=== PATIENT | male | born 1950 | race Caucasian/White ===

== ENCOUNTER → 2017-03-26 | Outpatient (CLI) | payer OTHER, MEDICARE ==
[~2017-03-26] MED LIST: ASPI81TA28 PO; ATOR10TA82 PO; HYDR-5688 PO; HYDR25TA4 PO; MELO7.5T5 PO; MULT-506 PO; NAPR1TAB9 PO; NRV/10 PO; XRL10 PO; ZLF/50 PO
[2017-03-26 13:42] LABS: ESTIMATED AVERAGE GLUCOSE 137 mg/dl; HA1C FLAG Normal (Normal)
[2017-03-26 13:54] LABS: BLOOD UREA NITROGEN 20 mg/dl (7-18); BUN/CREATININE RATIO 18.3 (10-20); CARBON DIOXIDE 30 mmol/L (21-32); CHLORIDE 101 mmol/L (98-107); CHOLESTEROL 128 mg/dl (0-200); GLUCOSE 111 mg/dl (70-99); POTASSIUM 3.3 mmol/L (3.5-5.1); SODIUM 140 mmol/L (136-145); TRIGLYCERIDES 212 mg/dl (0-150); VERY LOW DENSITY LIPOPROT CALC 42 mg/dl
[2017-03-26 14:00] LABS: CALCIUM 9.5 mg/dl (8.5-10.1)
[2017-03-26 14:01] LABS: CHOLESTEROL/HDL RATIO 2.1; HDL CHOLESTEROL 62 mg/dl; LDL CHOLESTEROL CALCULATED 24 mg/dl
--- NOTE | 2017-04-02 08:40 | CODING QUERY MEDICAL NECESSITY ---
CQSUPPORTING DIAGNOSIS NEEDED A supporting diagnosis is required for the test/procedure performed on this patient in order for us to be reimbursed by the patient's insurance. Please provide a supporting diagnosis for the following test/procedure listed below next to the test name along with your signature. *If there is no additional diagnosis for this patient that would support the following test/procedure please document that below next to the test/procedure. Test(s)/Procedure(s) that require a supporting diagnosis: DOS 03/26/17 PROSTATE SPECIFIC TEST (PSA) Provider Signature: Date: Thank you Danitza Churchill Health Information Management Once completed, please kindly fax back to [phone] For questions please call [phone]
== END | disposition home or self-care (01) ==
LOC: C.LABBC 11:33
PROVIDERS: ATTEND Internal Medicine Geriatric Medicine
DX: Z00.00 Encounter for general adult medical examination without abnormal findings (principal); Z12.5 Encounter for screening for malignant neoplasm of prostate; I10 Essential (primary) hypertension; E78.5 Hyperlipidemia, unspecified; R73.9 Hyperglycemia, unspecified

== ENCOUNTER 2017-04-19 05:58 | Inpatient (IN) | payer OTHER, MEDICARE ==
[2017-04-02 08:23] VITALS: BMI 40.0
--- NOTE | 2017-04-02 08:57 | PAT Medication Instructions ---
Service Date April 02, 2017. Current Home Medication List Amlodipine Besylate (Amlodipine Besylate), 10 MG PO QAM Aspirin (Aspirin Ec), 81 MG PO QAM Atorvastatin (Lipitor), 10 MG PO QAM Hydrochlorothiazide (Hctz), 25 MG PO QAM Meloxicam (Mobic), 15 MG PO QAM Multivitamin (Multivitamin), 1 TAB PO QAM Naproxen (Aleve), 440 MG PO BID Sertraline HCl (Sertraline HCl), 50 MG PO DAILY PRN for Pain Medication Instructions For Your Scheduled Surgery - Hold the following medications 5-7 days prior to surgery per surgeon instructions Naproxen (Aleve), 440 MG PO BID - Hold the following medications the morning of surgery: Multivitamin (Multivitamin), 1 TAB PO QAM Hydrochlorothiazide (Hctz), 25 MG PO QAM Meloxicam (Mobic), 15 MG PO QAM (not told to stop by surgeon) - Take the following medications the morning of surgery with a sip of water: Sertraline HCl (Sertraline HCl), 50 MG PO DAILY PRN for Pain Amlodipine Besylate (Amlodipine Besylate), 10 MG PO QAM Aspirin (Aspirin Ec), 81 MG PO QAM Atorvastatin (Lipitor), 10 MG PO QAM If you have any questions please call us at [phone] or [phone] ( [place]) or [phone]
[2017-04-02 10:10] LABS: BASO % 0.3 %; BASO ABS # 0.03 K/uL (0-0.2); COMPLETE YES; EOS % 1.6 %; HEMATOCRIT 48.5 % (42-52); IG% 0.5 %; LYMPH % 21.1 %; LYMPH ABS # 2.11 K/uL (1.2-3.4); MEAN CELL VOLUME 85.7 fL (80-100); MEAN CORPUSCULAR HEMOGLOBIN 28.1 pg (25-34); MEAN CORPUSCULAR HGB CONC 32.8 g/dl (32-36); MEAN PLATELET VOLUME 9.3 fL (7.4-10.4); NEUT % 69.5 %; PLATELET COUNT 183 K/uL (130-400); RED BLOOD COUNT 5.66 M/uL (4.7-6.1); WHITE BLOOD COUNT 10.02 K/uL (4.8-10.8)
[2017-04-02 10:10] LABS: URINE APPEARANCE CLEAR (CLEAR); URINE BILIRUBIN NEG (NEG); URINE COLOR YELLOW; URINE NITRITE NEG (NEG); URINE SPECIFIC GRAVITY 1.017 (1.000-1.030); UROBILINOGEN NEG (NEG); ZZUR CULT IF INDIC CLEAN CATCH NO
[2017-04-02 10:12] LABS: MANUAL MICROSCOPIC REQUIRED? NO; REVIEW REQ? NO
--- NOTE | 2017-04-02 10:13 | DIAGNOSTIC IMAGING REPORT ---
CHEST PREADMISSION(PA/LAT) CLINICAL HISTORY: Preoperative evaluation. COMPARISON STUDY: Chest radiograph March 12, 2010. FINDINGS: Lung volumes are normal. There is no pneumothorax or pleural effusion. There is no evidence of pulmonary edema. Cardiac size is normal. No consolidation is identified. The appearance of the chest is unchanged. IMPRESSION: No acute cardiopulmonary findings. Electronically signed by: Dirk Croft M.D. 04/02/2017 10:11 AM Dictated Date/Time: 04/02/2017 10:10 AM
[2017-04-02 10:21] LABS: PARTIAL THROMBOPLASTIN RATIO 1.2; PROTHROMBIN TIME (PATIENT) 10.2 SECONDS (9.0-12.0)
[2017-04-02 10:55] LABS: CALCIUM 9.2 mg/dl (8.5-10.1); CREATININE 0.95 mg/dl (0.60-1.40)
--- NOTE | 2017-04-18 14:04 | HISTORY & PHYSICAL EXAMINATION ---
DATE OF ADMISSION: 04/19/2017 CHIEF COMPLAINT: Right knee pain. HISTORY OF PRESENT ILLNESS: The patient is a 67-year-old gentleman with known osteoarthritis about his right knee. He has had previous knee corticosteroid injection with short term relief. He continues to have pain and disability with activities of daily living. He takes Meloxicam daily. He uses Biofreeze gel intermittently as needed. He continues to have ongoing pain and now desires to proceed with right total knee arthroplasty. PAST MEDICAL HISTORY: Hyperlipidemia, gastroesophageal reflux disease, history of DVT status post previous lower leg surgery, hypertension. PAST SURGICAL HISTORY: Lower leg surgery, foot surgery, elbow surgery. MEDICATIONS: Sertraline HCL 50 mg 2 tablets daily, atorvastatin calcium 10 mg daily, hydrochlorothiazide 25 mg daily, aspirin 81 mg daily, amlodipine besylate 10 mg daily, Meloxicam 15 mg daily, multivitamin daily. ALLERGIES: INCLUDE BENICAR AND LISINOPRIL. SOCIAL HISTORY AND REVIEW OF SYSTEMS: Noncontributory. PHYSICAL EXAMINATION: GENERAL: Well-nourished, well-developed male who appears stated age. HEAD, EYES, EARS, NOSE, AND THROAT: Normocephalic, atraumatic, extraocular movements intact, oropharynx pink and moist. NECK: Supple without adenopathy. LUNGS: Clear to auscultation bilaterally. HEART: Regular rate and rhythm. ABDOMEN: Soft, nontender, nondistended. EXTREMITIES: The upper extremities are within normal limits. The right knee is in neutral alignment. He complains primarily of medial compartment pain. He has mild narrowing of the joint space. He has moderate degenerative change with osteophytes about the patellofemoral joint. ASSESSMENT: Right knee degenerative joint disease. PLAN: Risks versus benefits were discussed. Consent was obtained. The patient's primary care physician is Dr. Denzel Ruiz. Will proceed with right total knee arthroplasty upon preop workup and medical clearance.
[~2017-04-19] VITALS: Ht 180.3 cm; Wt 131.1 kg
[2017-04-19] VITALS (7 sets, daily range): BP systolic 111–155; BP diastolic 73–95; PULSE 60–79; TEMP 36.5–37; O2SAT 93–96; Ht 180.3 cm; Wt 131.1 kg
[~2017-04-19 05:58] MED LIST changes: -HYDR-5688 PO; -XRL10 PO
[2017-04-19] MEDS ORDERED: DEXAMETHASONE 4 MG TAB PO SCH (06:00)
[2017-04-19] MEDS ORDERED: FAMOTIDINE 20 MG TAB PO SCH (06:00)
[2017-04-19] MEDS ORDERED: CeleBREX 200 MG CAP PO SCH (06:00)
[2017-04-19] MEDS ORDERED: GABAPENTIN 300 MG CAP PO SCH (06:00)
[2017-04-19] MEDS ORDERED: LACTATED RINGER'S 1000ML 500 ML IV ONE (06:00)
[2017-04-19] MEDS ORDERED: ROPIVACAINE 5MG/ML 30 ML 150 MG, BUPIVACAINE/EPINEPHR 0.5% MPF 30 ML, KETOROLAC TROMETH... INFIL SCH ×7 (06:00)
[2017-04-19] MEDS ORDERED: LACTATED RINGER'S 1000ML IV SCH (06:00)
[2017-04-19] MEDS ORDERED: METOCLOPRAMIDE HCL 10 MG TAB PO SCH (06:00)
[2017-04-19] MEDS ORDERED: CEFAZOLIN 3000 MG/65 ML D5W 65 ML IV SCH (06:00)
[2017-04-19] MEDS ORDERED: ACETAMINOPHEN 500 MG TAB PO SCH (06:00)
[2017-04-19] MEDS ORDERED: LACTATED RINGER'S 1000ML 1,000 ML IV SCH (06:00)
[2017-04-19] MEDS ORDERED: EpHEDrine SULFATE INJ 50 MG/ML AMP IV PRN (06:45)
[2017-04-19] MEDS ORDERED: ATROPINE SULFATE 0.1 MG/ML 5ML SYR IV PRN (06:45)
[2017-04-19] MEDS ORDERED: FENTANYL CITRATE INJ 50 MCG/1 ML 2 ML VIAL IV PRN (06:45)
[2017-04-19] MEDS ORDERED: ONDANSETRON INJ 2 MG/ML 2 ML VIAL IV PRN ×2 (06:45→09:45)
[2017-04-19] MEDS ORDERED: FENTANYL CITRATE INJ 50 MCG/1 ML 2 ML VIAL ONE (06:55)
[2017-04-19] MEDS ORDERED: MIDAZOLAM HCL 1 MG/ML 2ML VIAL ONE (06:55)
--- NOTE | 2017-04-19 06:58 | History & Physical Bridge Note ---
H&P Re-Evaluation Bridge Note: I have examined the patient, reviewed the History & Physical and in the interval since the performance of the History & Physical I have noted the following changes of clinical significance: No changes noted
[2017-04-19] MEDS ORDERED: POVIDONE-IODINE OP SOLN 30 ML BTL ONE (07:09)
[2017-04-19] MEDS ORDERED: BACITRACIN 50000 UNIT VIAL ONE (07:09)
[2017-04-19] MEDS ORDERED: ORTHO JOINT ANESTHETIC ONE (07:09)
[2017-04-19] MEDS ORDERED: BUPIVACAINE 0.5 % 5 MG/1 ML PF 10ML VIAL ONE (07:27)
[2017-04-19] MEDS ORDERED: BUPIVACAINE 0.25% 30 ML VIAL ONE (07:27)
[2017-04-19] MEDS ORDERED: CLINDAMYCIN 600 MG/54 ML D5W IV ONE (07:33)
[2017-04-19] MEDS ORDERED: NURSING VERBAL MED ORDER STA (07:54)
[2017-04-19] MEDS ORDERED: LIDOCAINE HCL 2% 2 ML VIAL (20MG/ML) ONE (08:23)
[2017-04-19] MEDS ORDERED: PROPOFOL IV EMULSION 10 MG/ML 20 ML VIAL IV ONE ×2 (08:23→08:40)
[2017-04-19] MEDS ORDERED: KETAMINE HCL INJ 50 MG/ML 10 ML VIAL ONE (08:46)
[2017-04-19] MEDS ORDERED: GLYCOPYRROLATE INJ 0.2 MG/ML VIAL ONE (08:51)
--- NOTE | 2017-04-19 09:02 | [facility] Operative Report ---
Operative Report Operative Date April 19, 2017. Pre-Operative Diagnosis Right knee degenerative joint disease Surgeon Dr. Burks Senior Construction Manager Surgeon(s) Jean Marie Hernadez PA-C Estimated Blood Loss 10cc Findings severe oa pf jt. Specimens A. Right knee bone and tissue Complication(s) None Disposition Recovery Room / PACU I attest to the content of the Intraoperative Record and any orders documented therein. Any exceptions are noted below.
--- NOTE | 2017-04-19 09:23 | OPERATIVE REPORT ---
DATE OF OPERATION: 04/19/2017 PREOPERATIVE DIAGNOSIS: Osteoarthritis right knee. POSTOPERATIVE DIAGNOSIS: Osteoarthritis right knee. PROCEDURE: Right total knee arthroplasty. SURGEON: Dr. Burks. FOREST MANAGER: Jean Marie Hernadez PA-C. ANESTHESIA: Spinal. COMPLICATIONS: None. DESCRIPTION OF PROCEDURE: Following induction of spinal anesthesia, the patient's right leg was prepped and draped in the usual sterile manner. Limb was exsanguinated with an Esmarch bandage and tourniquet was inflated to 350 mmHg. A longitudinal incision was made anteriorly. Subcutaneous tissue was sharply dissected. Electrocautery was used for hemostasis. Prepatellar bursa was incised and median parapatellar incision was performed. Patella was everted and the knee was flexed. Fat pad was removed to aid in visualization and the anterior and posterior cruciate ligaments were removed. The medial face of the tibia was cleared of soft tissue first with a Bovie and a Becerra elevator. This tissue was retracted posteriorly using a blunt Hohmann. A Ha retractor was used to expose the synovium above on the anterior aspect of the femur and this was removed down to bone. The PSI guide was placed on the distal femur and two pins were placed anteriorly and kept in position and two additional pins were placed distally and removed. The distal femoral cutting block was placed in position and the distal femoral cut was used in the +0 setting. Next, the cutting block was removed and the 6 block was placed in the distal end of the femur. Care was taken to ensure appropriate external rotation and feeler gauge was used to ensure no notching would occur. The femoral block was centered on the distal femur and in the medial and lateral direction and was fixed using two bone screws. The gold pins were then removed. The oscillating saw was used to create the bone cuts and the distal femoral cutting block was removed and the reciprocating saw was used to further trim the femoral cuts as well as a deep in the area for the trochlear groove. Next, posterior condyle remnants were removed. Following this, a meniscal clamp and knife were utilized to remove the anterior portion of both medial and lateral meniscus. The proximal tibia PSI guide was placed into position and the proximal tibial cutting guide was screwed into position. The extra medullary alignment guide was utilized to ensure appropriate alignment. The proximal tibia was cut and the proximal tibial cutting block was removed and this bone fragment was removed. The appropriate guide was used to perform the notch cut on the distal femur and a lamina print production associate and a cochlear knife were utilized to finish both medial and lateral meniscectomies to remove any remnants of the posterior or anterior cruciate ligaments. Following this, the distal femoral component was impacted into position and blunt Steve was used to sublux the tibia anteriorly. The proximal tibia was sized and a 5.2 tibial tray was chosen as the size to be used. This was put into position and appropriate external rotation and a double check with extramedullary alignment guide was performed. The canal for the tibial stem was prepared first with a 17 mm drill and then the punch and a mallet and the trial tibial poly was placed. A 9 was chosen the size to be used. It was brought to extension and the patella was prepared with the patellar reamer. A 39 component was chosen the size to be used. The trial component was placed and knee was taken through a full range of motion and there was found to be no lateral subluxation of the tibia. No lateral release was required. The trials were all removed. The final components were obtained and assembled. Cement was mixed. The knee was thoroughly irrigated and the ortho mix was injected about the knee joint. The final components were cemented into position. After thoroughly suctioning and drying the bone ends, all excess cement was removed. The knee was held in extension while the cement hardened. The wound was irrigated and closed over a Hemovac drain. #1 Vicryl was used to close the extensor mechanism. Subcutaneous tissues closed using 0 Dexon. Skin was closed with teddy. Sterile dressing of Adaptic, 4 x 4's, sterile Webril, and Sathish was applied. The patient tolerated the procedure well. Recovery room stable. Due to the complex nature of the procedure, the entire surgery was performed with the operational assistance of Jean Marie Hernadez PA-C. The preschool teacher assistant, under direct supervision, was involved in the actual performance of all aspects of the surgical procedure including hemostasis, tissue retraction and incision, instrument management, patient positioning, and wound closure. I attest to the content of the Intraoperative Record and any orders documented therein. Any exceptio ns are noted below.
[2017-04-19] MEDS ORDERED: CEFAZOLIN IV 2,000 MG in DEXTROSE 5% 50ML 50 ML IV SCH (09:45)
[2017-04-19] MEDS ORDERED: MAGNESIUM HYDROXIDE SUSP 30 ML UDC PO PRN (09:45)
[2017-04-19] MEDS ORDERED: MoRPHine SULFATE 2 MG/ML CARP IV PRN (09:45)
[2017-04-19] MEDS ORDERED: TAMSULOSIN HCL 0.4 MG CAP PO PRN (09:45)
[2017-04-19] MEDS ORDERED: ALUMINUM/MAGNESIUM/SIMETH (MAALOX MAX) 30 ML UDC PO PRN (09:45)
[2017-04-19] MEDS ORDERED: BISACODYL 10 MG SUPP PR PRN (09:45)
--- NOTE | 2017-04-19 10:10 | DIAGNOSTIC IMAGING REPORT ---
RIGHT KNEE 2 VIEWS History: Right total knee arthroplasty. Degenerative arthritis. Postop. FINDINGS: The patient is status post a right total knee arthroplasty. The hardware is intact. No fracture or dislocation. Skin teddy and surgical drains are in place. IMPRESSION: Right total knee arthroplasty. No evidence for hardware complication. Electronically signed by: Americo Caldwell M.D. 04/19/2017 10:09 AM Dictated Date/Time: 04/19/2017 10:08 AM
--- NOTE | 2017-04-19 11:10 | Anesthesiology Progress Note ---
Anesthesia Post Op Note Date & Time April 19, 2017 at 11:09 Vital Signs Pain Intensity: 0 Vital Signs Past 12 Hours Date Time Temp Pulse Resp B/P Pulse Ox O2 Delivery O2 Flow Rate FiO2 04/19/17 11:00 36.7 63 16 107/66 95 Nasal Cannula 4 04/19/17 10:50 36.7 63 16 96/56 95 Nasal Cannula 4 04/19/17 10:40 63 16 115/72 95 Nasal Cannula 4 04/19/17 10:30 60 16 106/65 95 Nasal Cannula 4 04/19/17 10:20 59 16 117/67 97 Nasal Cannula 4 04/19/17 10:10 64 16 117/68 96 Nasal Cannula 4 04/19/17 10:00 62 16 113/68 96 Nasal Cannula 4 04/19/17 09:50 63 16 111/64 97 Nasal Cannula 4 04/19/17 09:40 71 16 111/66 97 Nasal Cannula 4 04/19/17 09:32 36.8 75 16 100/59 97 Nasal Cannula 4 04/19/17 07:01 36.6 60 20 155/85 94 Room Air Notes Mental Status: alert / awake / arousable, participated in evaluation Pt Amnestic to Procedure: Yes Nausea / Vomiting: adequately controlled Pain: adequately controlled Airway Patency, RR, SpO2: stable & adequate BP & HR: stable & adequate Hydration State: stable & adequate Neuraxial Anesthesia: was administered, sensory block is resolving Anesthetic Complications: no major complications apparent
[2017-04-19] MEDS ORDERED: MoRPHine SULFATE 4 MG/ML 1 ML CARP\\VIAL IV PRN (13:30)
[2017-04-19] MEDS ORDERED: MoRPHine SULFATE 10 MG/ML CARP/VIAL IV PRN (13:30)
[2017-04-19] MEDS: D5W AND 1/2NSS + 20MEQ KCL 1,000 ML IV SCH (15:15)
[2017-04-19] MEDS: KETOROLAC TROMETHAMINE 15 MG/ML VIAL IV. SCH ×2 (15:16→20:28)
[2017-04-19] MEDS: FERROUS GLUCONATE 324 MG TAB PO SCH (18:27)
[2017-04-19] MEDS: CLINDAMYCIN IV 600 MG in DEXTROSE 5% ADD-VANTAGE 50ML 50 ML IV SCH (20:28)
[2017-04-19] MEDS: MoRPHine SULFATE CR 15 MG TAB (MS CONTIN) PO SCH (20:33)
[2017-04-19] MEDS: ASPIRIN 81 MG ECTAB PO SCH (20:33)
[2017-04-19] MEDS: DOCUSATE SODIUM 100 MG CAP PO SCH (20:33)
[2017-04-19] MEDS: SENNA 8.6 MG TAB PO SCH (20:33)
[2017-04-19] MEDS: HYDROCODONE/ACETAMOPHEN 5/325MG TAB PO PRN (22:27)
[2017-04-20] MEDS: D5W AND 1/2NSS + 20MEQ KCL 1,000 ML IV SCH ×2 (00:28→08:50)
[2017-04-20] MEDS: KETOROLAC TROMETHAMINE 15 MG/ML VIAL IV. SCH ×2 (02:00→08:49)
[2017-04-20 03:00] VITALS: BP 115/68; PULSE 63; TEMP 36.7; O2SAT 96
[2017-04-20] MEDS: CLINDAMYCIN IV 600 MG in DEXTROSE 5% ADD-VANTAGE 50ML 50 ML IV SCH (04:20)
[2017-04-20 05:51] LABS: HEMATOCRIT 39.2 % (42-52); MEAN CELL VOLUME 83.4 fL (80-100); MEAN CORPUSCULAR HEMOGLOBIN 27.7 pg (25-34); MEAN CORPUSCULAR HGB CONC 33.2 g/dl (32-36); MEAN PLATELET VOLUME 9.3 fL (7.4-10.4); PLATELET COUNT 211 K/uL (130-400); WHITE BLOOD COUNT 20.14 K/uL (4.8-10.8)
[2017-04-20 06:24] LABS: BUN/CREATININE RATIO 19.2 (10-20); CALCIUM 8.5 mg/dl (8.5-10.1); CREATININE 1.3 mg/dl (0.60-1.40); POTASSIUM 4.3 mmol/L (3.5-5.1)
[2017-04-20 07:23] VITALS: BP 168/100; PULSE 77; TEMP 36.6; O2SAT 96
[2017-04-20 07:32] VITALS: BP 149/85
--- NOTE | 2017-04-20 08:11 | Anesthesiology Progress Note ---
Anesthesia Post Op Note Date & Time April 20, 2017 at 08:11 Vital Signs Pain Intensity: 4.0 Vital Signs Past 12 Hours Date Time Temp Pulse Resp B/P Pulse Ox O2 Delivery O2 Flow Rate FiO2 04/20/17 07:32 149/85 04/20/17 07:23 36.6 77 17 168/100 96 Room Air 04/20/17 03:00 36.7 63 16 115/68 96 Room Air 04/19/17 23:10 Room Air 04/19/17 23:03 36.5 65 18 129/73 93 Room Air 04/19/17 20:30 Room Air Notes Mental Status: alert / awake / arousable, participated in evaluation Pt Amnestic to Procedure: Yes Nausea / Vomiting: adequately controlled Pain: adequately controlled Airway Patency, RR, SpO2: stable & adequate BP & HR: stable & adequate Hydration State: stable & adequate Neuraxial Anesthesia: was administered, sensory block resolved Anesthetic Complications: no major complications apparent
--- NOTE | 2017-04-20 08:28 | Orthopedic Progress Note ---
Orthopedic Progress Note Date of Service April 20, 2017. Subjective Post OP Day: 1 Reports: feeling well, Denies: SOB, calf pain, chest pain, light headedness, nausea / vomiting Objective calves soft nontender, N/V intact, dressing C/D/I, A&O x3, toes mobile Date Time Temp Pulse Resp B/P Pulse Ox O2 Delivery O2 Flow Rate FiO2 04/20/17 07:32 149/85 04/20/17 07:23 36.6 77 17 168/100 96 Room Air 04/20/17 03:00 36.7 63 16 115/68 96 Room Air 04/19/17 23:10 Room Air 04/19/17 23:03 36.5 65 18 129/73 93 Room Air 04/19/17 20:30 Room Air 04/19/17 15:00 36.8 79 18 133/77 95 Room Air 04/19/17 13:59 63 16 124/76 96 Nasal Cannula 2.0 04/19/17 13:05 37.0 77 19 139/78 96 Nasal Cannula 2.0 04/19/17 12:27 63 16 146/95 96 Nasal Cannula 2.0 04/19/17 12:00 36.8 16 111/76 95 Nasal Cannula 2.0 04/19/17 12:00 95 Nasal Cannula 2.0 04/19/17 12:00 Nasal Cannula 2.0 04/19/17 11:40 36.7 61 16 107/57 96 Nasal Cannula 4 04/19/17 11:25 36.7 63 16 100/56 96 Nasal Cannula 4 04/19/17 11:10 36.7 59 16 107/59 95 Nasal Cannula 4 04/19/17 11:00 36.7 63 16 107/66 95 Nasal Cannula 4 04/19/17 10:50 36.7 63 16 96/56 95 Nasal Cannula 4 04/19/17 10:40 63 16 115/72 95 Nasal Cannula 4 04/19/17 10:30 60 16 106/65 95 Nasal Cannula 4 04/19/17 10:20 59 16 117/67 97 Nasal Cannula 4 04/19/17 10:10 64 16 117/68 96 Nasal Cannula 4 04/19/17 10:00 62 16 113/68 96 Nasal Cannula 4 04/19/17 09:50 63 16 111/64 97 Nasal Cannula 4 04/19/17 09:40 71 16 111/66 97 Nasal Cannula 4 04/19/17 09:32 36.8 75 16 100/59 97 Nasal Cannula 4 Laboratory Results 24 Hours: Test 04/20/17 05:37 Hematocrit 39.2 % Hemoglobin 13.0 g/dL Assessment & Plan Assessment: POD 1 s/p Right TKA Leukocytosis Hyperlipidemia HTN GERD H/O DVT Plan: Leukocytosis likely stress related - asymptomatic PT/OT Planning for OPPT Inhouse Planning Pain Management: [place], Morphine, other (MS Contin) DVT Prophylaxis: TEDs, SCDs, ASA Discharge Planning Discharge Planning: home with oppt Pain Management: [place], other ([place] Contin) DVT Prophylaxis: TEDs, ASA Therapy: Physical Therapy
[2017-04-20] MEDS: MoRPHine SULFATE CR 15 MG TAB (MS CONTIN) PO SCH ×2 (08:48→20:46)
[2017-04-20] MEDS: ASPIRIN 81 MG ECTAB PO SCH ×2 (08:48→20:46)
[2017-04-20] MEDS: DOCUSATE SODIUM 100 MG CAP PO SCH ×2 (08:48→20:46)
[2017-04-20] MEDS: FERROUS GLUCONATE 324 MG TAB PO SCH ×3 (08:49→17:41)
[2017-04-20] MEDS: ATORVASTATIN 10 MG TAB PO SCH (08:49)
[2017-04-20] MEDS: MULTIVITAMIN TAB PO SCH (08:49)
[2017-04-20] MEDS: PANTOprazole SOD 40 MG TAB PO SCH (08:49)
[2017-04-20] MEDS: AMLODIPINE BESYLATE 5 MG TAB PO SCH (08:50)
[2017-04-20] MEDS ORDERED: MULTIVITAMIN TAB PO SCH (09:00)
[2017-04-20 11:09] VITALS: BP 143/84; PULSE 80; TEMP 36.8; O2SAT 96
[2017-04-20] MEDS: HYDROCODONE/ACETAMOPHEN 5/325MG TAB PO PRN ×2 (13:14→19:45)
--- NOTE | 2017-04-20 14:06 | Discharge Instructions ---
Discharge Instructions Date of Service April 20, 2017. Admission Reason for Admission: Right Knee Degenerative Joint Disease Discharge Discharge Diagnosis / Problem: Right Knee Djd Discharge Goals Goal(s): Decrease discomfort, Improve function Activity Recommendations Activity Limitations: per Instructions/Follow-up section Weightbearing Status: Right weightbearing (as tolerated) . Instructions / Follow-Up Instructions / Follow-Up ACTIVITY RECOMMENDATIONS: SELF CARE INSTRUCTIONS AFTER TOTAL KNEE REPLACEMENT A. You may need to continue a physical therapy program after discharge from the hospital. There are several options available to you. Your doctor will assist you in selecting the best one for you. 1. An out-patient facility 2 to 3 times a week for therapy or home therapy. 2. Continue working on all exercises taught to you in the hospital. Your goals should be to increase bending of your knee to 90 degrees and beyond and to fully straighten your knee. B. You may progress at your own pace from walking with a walker or crutches to a cane; then to no assistive devices. C. Make walking a part of your daily routine. Be up as much as comfortable with rest periods throughout the day. Rest with leg elevation is very important. Use the ice wrap frequently for the first 3-4 weeks. D. There are no restrictions on activities. You may ride in a car, shop, participate in injection specialist and all social activities. E. Wear the long elastic stockings (THERESA hose) 20 hours a day for 2 weeks after surgery. They can be removed several times a day for laundering and for a bath. F. You may shower, no tub baths until cleared by your doctor. SPECIAL CARE INSTRUCTIONS: VERY IMPORTANT TO READ AND REVIEW A. There are a few signs you need to watch for after you are home. Call [facility] if you notice any of the followin. Increased severe knee pain. Some pain is expected especially when you exercise. 2. Increased swelling in your leg or knee; pain or swelling of the calf muscle in either lower leg. 3. Any fluid drainage from the incision. 4. Shortness of breath or chest pain. B. Please call [facility] at if you have any concerns or questions about your operation or recovery. The doctor or his nurse will return your call promptly. C. You must take antibiotics before dental work, bladder, bowel or other surgery. Your doctor will provide you with a permanent care to carry describing this precaution. IMPORTANT: * REMEMBER TO TAKE ASPIRIN, 81 MG, TWICE DAILY FOR 4 WEEKS UNLESS OTHERWISE DIRECTED. THIS IS YOUR BLOOD THINNER. * HIGH RISK PATIENTS MAY BE PRESCRIBED A STRONGER BLOOD THINNER. THIS WILL BE PROVIDED AT DISCHARGE. * CALL IF INCREASED PAIN, REDNESS, DRAINAGE OR FEVER GREATER THAT 101. * WEAR THERESA HOSE 20 HOURS PER DAY FOR 2 WEEKS. * Silverlon- This is a large adhesive bandage that contains silver ions. This helps your incision heal by fighting off bacteria and protecting it from the outside environment. You are permitted to shower with this dressing. This will remain on your incision for 7 days and then should be removed. Some visible blood or drainage through the dressing window is normal. If there is significant drainage or leaking noted before the 7 days notify your doctor's office immediately. Once removed, keep incision clean and dry. If there is any drainage or redness noted, please call your surgeon. . FOLLOW UP VISIT: If appointment is not already scheduled: Please call [facility] to make a follow-up appointment for 2 weeks after your surgery at . Current Hospital Diet Patient's current hospital diet: Regular Diet Discharge Diet Recommended Diet: Regular Diet Procedures Procedures Performed: Right total knee arthroplasty Pending Studies Studies pending at discharge: no Laboratory Results Hemoglobin A1c Test 03/26/17 11:38 Range/Units Estimated Average Glucose 137 mg/dl Hemoglobin A1c 6.4 H 4.5-5.6 % Lipid Panel Test 03/26/17 11:38 Range/Units Triglycerides Level 212 H 0-150 mg/dl Cholesterol Level 128 0-200 mg/dl HDL Cholesterol 62 mg/dl Cholesterol/HDL Ratio 2.1 LDL Cholesterol, Calculated 24 mg/dl Medical Emergencies . Who to Call and When: Medical Emergencies: If at any time you feel your situation is an emergency, please call 911 immediately. . Non-Emergent Contact Non-Emergency issues call your: Surgeon Call Non-Emergent contact if: temperature is above 101.5, your pain is not controlled, your pain is worsening, wound has increased drainage, wound has increased redness . "Provider Documentation" section prepared by Jean Marie Hernadez. . VTE Core Measure Inpt VTE Proph given/why not?: Other Anticoagulation, T.E.D. Stockings, SCD's [place] Drug Monitoring Program Search Results: patient reviewed within database, no issues identified
[2017-04-20 15:36] VITALS: BP 133/79; PULSE 67; TEMP 36.6; O2SAT 95
[2017-04-20] MEDS: SENNA 8.6 MG TAB PO SCH (20:46)
[2017-04-20 23:25] VITALS: BP 150/72; PULSE 70; TEMP 36.4; O2SAT 94
[2017-04-21 06:57] VITALS: BP 177/63; PULSE 80; TEMP 36.5; O2SAT 97
[2017-04-21] MEDS: HYDROCODONE/ACETAMOPHEN 5/325MG TAB PO PRN (07:43)
[2017-04-21] MEDS: DOCUSATE SODIUM 100 MG CAP PO SCH (07:45)
[2017-04-21] MEDS: PANTOprazole SOD 40 MG TAB PO SCH (07:46)
[2017-04-21] MEDS: FERROUS GLUCONATE 324 MG TAB PO SCH (07:46)
[2017-04-21] MEDS: MULTIVITAMIN TAB PO SCH (07:46)
[2017-04-21] MEDS: ATORVASTATIN 10 MG TAB PO SCH (07:47)
[2017-04-21] MEDS: AMLODIPINE BESYLATE 5 MG TAB PO SCH (07:47)
[2017-04-21] MEDS: ASPIRIN 81 MG ECTAB PO SCH (07:47)
[2017-04-21] MEDS: MoRPHine SULFATE CR 15 MG TAB (MS CONTIN) PO SCH (07:52)
--- NOTE | 2017-04-21 08:36 | Orthopedic Progress Note ---
Orthopedic Progress Note Date of Service April 21, 2017. Subjective Post OP Day: 2 Reports: pain controlled w PO medications, Denies: SOB, chest pain, nausea / vomiting Additional Notes: KNEE SWOLLEN PAINFUL Objective calves soft nontender, N/V intact, dressing C/D/I (DRESSING VERY BLODDY WILL CHANGE ), A&O x3, toes mobile Date Time Temp Pulse Resp B/P Pulse Ox O2 Delivery O2 Flow Rate FiO2 04/21/17 06:57 36.5 80 16 177/63 97 Room Air 04/20/17 23:45 Room Air 04/20/17 23:25 36.4 70 18 150/72 94 Room Air 04/20/17 16:45 Room Air 04/20/17 15:36 36.6 67 20 133/79 95 Room Air 04/20/17 11:09 36.8 80 17 143/84 96 Room Air Assessment & Plan Assessment: POD 2 s/p Right TKA Leukocytosis Hyperlipidemia HTN GERD H/O DVT Plan: Leukocytosis likely stress related - asymptomatic PT/OT Planning for OPPT Inhouse Planning Pain Management: [place], Morphine, other (MS Contin) DVT Prophylaxis: TEDs, SCDs, ASA Discharge Planning Discharge Planning: home with oppt Pain Management: [place], other (MS Contin) DVT Prophylaxis: TEDs, ASA, Xarelto (DWP DUE TO HX DVT WILL SWITCH TO XARELTO 10 FOR 3 WEEKS ) Therapy: Physical Therapy
[2017-04-21] MEDS ORDERED: RIVAROXABAN 10 MG TAB PO SCH (09:00)
[2017-04-21] MEDS ORDERED: XRL10 PO (09:12)
[2017-04-21] MEDS ORDERED: HYDR-5688 PO (09:12)
[2017-04-21 09:31] VITALS: BP 177/63; PULSE 80; TEMP 36.5; O2SAT 97
--- NOTE | 2017-04-26 16:21 | DISCHARGE SUMMARY ---
DISCHARGE DIAGNOSIS: Degenerative joint disease, right knee. SECONDARY DIAGNOSES: Hyperlipidemia; gastroesophageal reflux disease; history of deep vein thrombosis, status post previous lower extremity injury; and hypertension. CONSULTS: None. COMPLICATIONS: None. PROCEDURES: Right total knee arthroplasty, performed by Dr. Burks on 04/19/2017. BRIEF HISTORY: As dictated in the history and physical. HOSPITAL SUMMARY: The patient was admitted on the above-noted date and had the above-noted surgery performed, which he tolerated well. On his first postoperative day, he was feeling well and had no complaints. Calves were soft and nontender, neurovascularly intact. Dressings were clean, dry and intact. Toes were mobile. Blood pressures were fluctuating, highest being 168/100; however, repeat shortly thereafter was 149/85, dropping low was 96/56. Hemoglobin was 13.0. He was started on physical therapy protocol and continued on DVT prophylaxis and pain management. On his second postoperative day, he was complaining of some pains in the knee, but otherwise had no other complaints. Calves were soft and nontender, neurovascularly intact. Dressings had some bloody drainage and plans were to change prior to discharge. Knee was swollen and toes were mobile. Vital signs were stable. He was afebrile and he was continued on his PT protocol. He was progressing well and remaining stable and it was felt that he could be discharged to home on 04/21/2017. For further review, please see chart. LAB AND X-RAY DATA: As per chart. DISCHARGE INSTRUCTIONS: The patient was discharged to home in satisfactory condition on 04/21/2015. DIET: Regular diet. ACTIVITY: Weightbearing as tolerated, right lower extremity. Follow TK instruction sheets and special care instructions as noted. Follow up with Dr. Burks in 2 weeks. The patient to call for appointment if one has not been made for you. DISCHARGE MEDICATIONS: [place] 5/325 1-2 tabs p.o. q. 4 hours p.r.n., Xarelto 10 mg p.o. daily for 20 days. Resume amlodipine 10 mg p.o. q.a.m., atorvastatin 10 mg p.o. q.a.m., hydrochlorothiazide 25 mg p.o. q.a.m., and multivitamin 1 tab p.o. q.a.m. Stop taking aspirin and naproxen.
== END 2017-04-21 10:09 | disposition home or self-care (01) | DRG 470 ==
LOC: ENRESERVTM → ENRESERVDT → C.ACU 05:58 → C.3E 07:10
PROC: 0SRC0J9 Replacement of Right Knee Joint with Synthetic Substitute, Cemented, Open Approach (ICD-10-PCS; principal; 2017-04-19 08:00)
DX: M17.11 Unilateral primary osteoarthritis, right knee (principal); I10 Essential (primary) hypertension; E78.5 Hyperlipidemia, unspecified; Z79.899 Other long term (current) drug therapy; Z79.82 Long term (current) use of aspirin; Z86.718 Personal history of other venous thrombosis and embolism

== ENCOUNTER → 2017-08-09 | Outpatient (CLI) | payer OTHER, MEDICARE ==
[~2017-08-09] MED LIST changes: -ASPI81TA28 PO; -ATOR10TA82 PO; +ATOR10TA88 PO; +HYDR-5688 PO; -MELO7.5T5 PO; -NAPR1TAB9 PO; -ZLF/50 PO
--- NOTE | 2017-08-09 14:37 | DIAGNOSTIC IMAGING REPORT ---
L-SPINE MIN 4 VIEWS ROUTINE HISTORY: Pain M54.5 Low back painstaking views, if [id number] COMPARISON: None. FINDINGS: There is no fracture. No subluxation. Considerable degenerative disc change throughout. Lateral and anterior osteophytic changes throughout. 2 body stature is normal. IMPRESSION: Considerable degenerative and osteophytic change. No acute process. note is made of sclerosis of the sacroiliac joints bilaterally The above report was generated using voice recognition software. It may contain grammatical, syntax or spelling errors. Electronically signed by: Sal Ibarra M.D. 08/09/2017 2:35 PM Dictated Date/Time: 08/09/2017 2:34 PM
== END | disposition home or self-care (01) ==
LOC: C.RADBC 14:12
PROVIDERS: ATTEND Physician Assistant Medical
DX: M51.36 Other intervertebral disc degeneration, lumbar region (principal); M25.78 Osteophyte, vertebrae

== ENCOUNTER → 2018-02-06 | Outpatient (CLI) | payer OTHER, MEDICARE ==
[~2018-02-06] MED LIST changes: +ATOR10TA82 PO; -ATOR10TA88 PO
--- NOTE | 2018-02-06 10:17 | DIAGNOSTIC IMAGING REPORT ---
PELVIS 1 OR 2 VIEW ROUTINE CLINICAL HISTORY: M54.5 Low back painM46.1 Sacroiliitis, not elsewhere classifiedR COMPARISON STUDY: Left hip 05/12/2014. Abdomen and pelvis CT 03/22/2010. FINDINGS: No acute fracture or dislocation within the pelvis or hips. [id number] bilateral hip osteoarthritis. The sacrum appears intact. Near complete fusion of the bilateral sacroiliac joints, unchanged. Linear lucencies overlying the right acetabulum corresponding to the osteophytes seen on the prior CT examination. IMPRESSION: 1. No acute fracture or dislocation within the pelvis or hips. 2. Mild to moderate bilateral hip osteoarthritis. 3. Near complete fusion of the bilateral sacroiliac joints, unchanged. Electronically signed by: Americo Caldwell M.D. 02/06/2018 10:16 AM Dictated Date/Time: 02/06/2018 10:12 AM
== END | disposition home or self-care (01) ==
LOC: C.RADBC 09:46
PROVIDERS: ATTEND Internal Medicine Rheumatology
DX: M46.1 Sacroiliitis, not elsewhere classified (principal); M54.5 Low back pain

== ENCOUNTER → 2018-02-11 | Outpatient (CLI) | payer OTHER, MEDICARE ==
--- NOTE | 2018-02-11 07:59 | DIAGNOSTIC IMAGING REPORT ---
Study: MRI sacroiliac joints. HISTORY: Pain. Trauma. FINDINGS: Unremarkable bones and marrow signal of the sacrum and sacroiliac region. No significant bone marrow replacing process. 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 No significant joint effusion. Normal signal characteristics of the surrounding soft tissues. IMPRESSION: 1. 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 2. Otherwise negative study. 3. No acute process is identified. Electronically signed by: Sal Ibarra M.D. 02/11/2018 7:57 AM Dictated Date/Time: 02/11/2018 7:53 AM
== END | disposition home or self-care (01) ==
LOC: C.MRIBC 06:34
PROVIDERS: ATTEND Internal Medicine Rheumatology
DX: M46.1 Sacroiliitis, not elsewhere classified (principal); M54.5 Low back pain

== ENCOUNTER 2021-11-17 11:48 | Inpatient (IN) ==
[2021-11-17] MEDS ORDERED: cefTRIAXone SODIUM 1,000 MG/50 ML BAG IV STA ×2 (12:47→15:49)
[2021-11-17] MEDS ORDERED: SODIUM CHLORIDE 0.9% 1000ML 1,000 ML IV ONE ×2 (12:47→17:12)
[2021-11-17] MEDS ORDERED: ACETAMINOPHEN 1,000 MG/100 ML VIAL IV STA (12:47)
[2021-11-17] MEDS ORDERED: AZITHROMYCIN 500 MG in DEXTROSE 5% 250 ML IV STA (12:47)
--- NOTE | 2021-11-17 12:47 | Emergency Department Note ---
History of Present Illness General Chief complaint: Weakness Stated complaint: FLU SX, FEVER, LETHARGIC Time Seen by Provider: 11/17/21 12:06 History of Present Illness 71-year-old male presents to the ED with a chief complaint of being lethargic this morning. The patient is a poor historian. He does report a significant cough. The family found the patient this morning sitting and he was not speaking much and seemed very tired and weak. No additional information at this point. Patient is somewhat difficult getting information. He does answer some basic questions but seems to be easily distracted and starts zoning out. He denies any chest pains. No abdominal pains. No vomiting. Home Medications Medication Instructions Recorded Confirmed Type aspirin 81 mg tablet,delayed 81 mg PO QAM 08/28/18 11/08/21 History release (Adult Aspirin Regimen) carvedilol 6.25 mg tablet 6.25 mg PO BID 03/15/21 11/08/21 History losartan 50 mg tablet 25 mg PO QAM tab 03/15/21 11/08/21 History multivitamin 1 tab PO DAILY 03/15/21 11/08/21 History blood sugar diagnostic (OneTouch #100 ea 05/17/21 11/08/21 Rx Ultra Blue Test Strip) blood sugar diagnostic (OneTouch #50 ea 05/17/21 11/08/21 Rx Ultra Blue Test Strip) furosemide 20 mg tablet 20 mg PO DAILY #90 tab 05/17/21 11/08/21 Rx atorvastatin 10 mg tablet (Lipitor) 10 mg PO QAM #90 tab 09/01/21 11/08/21 Rx levothyroxine 25 mcg tablet 25 mcg PO DAILY #90 tab 09/12/21 11/08/21 Rx benzonatate 100 mg capsule 100 mg PO TID PRN #30 cap 11/16/21 11/16/21 Rx Allergies Allergy/AdvReac Type Severity Reaction Status Date / Time Penicillins Allergy Mild rash Verified 11/08/21 08:31 codeine AdvReac Intermediate hallucinati Verified 11/08/21 08:31 ons metformin AdvReac Intermediate diarrhea Verified 11/08/21 08:31 oxycodone AdvReac Intermediate hallucinati Verified 11/08/21 08:31 ons lisinopril AdvReac Mild cough Verified 11/08/21 08:31 olmesartan AdvReac Mild cough Verified 11/08/21 08:31 NARCOTICS AdvReac Intermediate hallucinati Uncoded 11/08/21 08:31 ons Past Med/Surg History Medical History Chronic osteoarthritis Dyslipidemia Edema of both legs History of DVT (deep vein thrombosis) post-op right foot surgery (2005) Hypertension Lumbar facet joint syndrome Lumbar spinal stenosis Multifactorial multilevel Obesity Osteoarthritis Piriformis syndrome Protrusion of lumbar intervertebral disc L4-5, small lateral right sided Tachycardia remote hx controlled on beta lanre Type 2 diabetes mellitus Surgical History Fusion of lumbosacral spine Left SI joint fusion H/O foot surgery R&L History of colonoscopy History of difficult intubation Left SI joint fusion: 12/16/19: Grade view 1, Glidescope#4, ETT 8.0 at [facility] History of elbow surgery RT History of total knee arthroplasty RIGHT Family History Mother Gout Hypertension Family history of diabetes mellitus Father Brain tumor Brother Diabetes Congenital deafness Family history of diabetes mellitus Diverticulitis of colon Aunt No problems noted. 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 Beliefs That Will Affect Care: None marital status: Current Living Situation: Spouse current occupational status: retired Feels Safe at Home: Yes Seatbelt Use: always Sunscreen Use: Yes Assistive Devices: Denture - Upper, Denture - Lower and Glasses Review of Systems A total of 10 systems reviewed and were otherwise negative Physical Exam Vital Signs Vital Signs - 24 hr 11/17/21 12:16 11/17/21 12:21 11/17/21 12:32 Temperature 39.6 C H 39.6 C H Temperature Source Oral Oral Pulse Rate 104 H Pulse Rate [Apical] Respiratory Rate 30 H 24 Respiratory Effort / Characteristics Blood Pressure [Right Arm] 162/94 H Blood Pressure Mean [Right Arm] 116 Pulse Oximetry 87 L 95 95 Oxygen Delivery Method Room Air Nasal Cannula Nasal Cannula Oxygen Flow Rate 2 2 Sepsis Recent Fever Within 48 Hours Yes Sepsis New/Unexplained Change in Mental Status Yes Sepsis Action Taken by Nursing Previously Notified 11/17/21 13:00 11/17/21 13:37 11/17/21 13:51 Temperature Temperature Source Pulse Rate Pulse Rate [Apical] 110 H Respiratory Rate 20 30 H Respiratory Effort / Characteristics Non-Labored Blood Pressure [Right Arm] 166/86 H Blood Pressure Mean [Right Arm] 112 Pulse Oximetry 95 95 95 Oxygen Delivery Method Nasal Cannula Nasal Cannula Nasal Cannula Oxygen Flow Rate 2 2 2 Sepsis Recent Fever Within 48 Hours Sepsis New/Unexplained Change in Mental Status Sepsis Action Taken by Nursing 11/17/21 14:00 11/17/21 14:31 Temperature 37.4 C Temperature Source Oral Pulse Rate Pulse Rate [Apical] 96 H Respiratory Rate Respiratory Effort / Characteristics Non-Labored Blood Pressure [Right Arm] 158/75 H Blood Pressure Mean [Right Arm] 102 Pulse Oximetry 95 95 Oxygen Delivery Method Nasal Cannula Nasal Cannula Oxygen Flow Rate 2 2 Sepsis Recent Fever Within 48 Hours Sepsis New/Unexplained Change in Mental Status Sepsis Action Taken by Nursing CONSTITUTIONAL/VITAL SIGNS: Reviewed / noted above. GENERAL: Patient appears to be very weak and fatigued. He requires some physical stimulation to cause him to be alert enough to answer questions. INTEGUMENTARY: Warm, dry, and [place]. HEAD: Normocephalic. EYES: without scleral icterus or trauma. ENT/OROPHARYNX: clear and moist. LYMPHADENOPATHY/NECK: Is supple without lymphadenopathy or meningismus. RESPIRATORY: Rhonchi in the left. No increased work of breathing. CARDIOVASCULAR: Regular rate and rhythm. GI/ABDOMEN: Soft and nontender. No organomegaly or pulsatile mass. EXTREMITIES: Warm and well perfused. BACK: No CVA tenderness. NEUROLOGICAL: Intact without focal deficits. PSYCHIATRIC: normal affect. MUSCULOSKELETAL: Normally developed with good muscle tone. TRIAGE NURSING DOCUMENTATION REVIEWED. Course Administered Medications Azithromycin 500 mg/ Dextrose 255 mls @ 127.5 mls/hr IV NOW STA Stop: 11/17/21 14:46 Last Admin: 11/17/21 14:29 Dose: 127.5 mls/hr Documented by: [id number] Discontinued Medications Acetaminophen (Ofirmev) 1,000 mg in 100 mls @ 400 mls/hr IV NOW STA Stop: 11/17/21 13:01 Last Infusion: 11/17/21 14:31 Dose: 0 mls/hr Documented by: [id number] Admin: 11/17/21 14:06 Dose: 400 mls/hr Documented by: [id number] Sodium Chloride (Nss 1000ml) 1,000 mls @ 999 mls/hr IV .Q1H1M ONE Stop: 11/17/21 13:47 Last Infusion: 11/17/21 14:30 Dose: 0 mls/hr Documented by: [id number] Admin: 11/17/21 13:27 Dose: 999 mls/hr Documented by: [id number] Ceftriaxone Sodium (Rocephin) 1,000 mg in 50 mls @ 100 mls/hr IV NOW STA Stop: 11/17/21 13:16 Last Infusion: 11/17/21 14:07 Dose: 0 mls/hr Documented by: [id number] Admin: 11/17/21 13:30 Dose: 100 mls/hr Documented by: [id number] Medical Decision Making Medical Records Attestation: I reviewed the patient's medical records. Home Medications Current Medication List: was personally reviewed by me Laboratory Data Attestation: I reviewed the patient's lab results. Result diagrams: 11/17/21 13:06 11/17/21 13:06 Lab Results 11/17/21 11/17/21 11/17/21 Range/Units 13:06 13:06 13:06 WBC 9.58 (4.8-10.8) K/uL RBC 5.47 (4.7-6.1) M/uL Hgb 15.6 (14.0-18.0) g/dL Hct 46.6 (42-52) % MCV 85.2 (80-100) fL MCH 28.5 (25-34) pg MCHC 33.5 (32-36) g/dL RDW Std Deviation 48.0 H (36.4-46.3) fL RDW Coeff of Ro 15.3 H (11.5-14.5) % Plt Count 158 (130-400) K/uL MPV 9.5 (7.4-10.4) fL Immature Gran % (Auto) 0.2 % Neut % (Auto) 79.0 % Lymph % (Auto) 11.3 % [place] % (Auto) 9.0 % Eos % (Auto) 0.4 % Baso % (Auto) 0.1 % Neut # (Auto) 7.57 H (1.4-6.5) K/uL Lymph # (Auto) 1.08 L (1.2-3.4) K/uL [place] # (Auto) 0.86 H (0.11-0.59) K/uL Eos # (Auto) 0.04 (0-0.5) K/uL Baso # (Auto) 0.01 (0-0.2) K/uL Immature Gran # (Auto) 0.02 (0.00-0.02) K/uL PT (9.0-12.0) Seconds INR (0.9-1.1) APTT (21.0-31.0) Seconds PTT Ratio Sodium 134 L (136-145) mmol/L Potassium 4.0 (3.5-5.1) mmol/L Chloride 99 (98-107) mmol/L Carbon Dioxide 29 (21-32) mmol/L Anion Gap 6.0 (3-11) BUN 12 (7-18) mg/dl Creatinine 1.13 (0.6-1.4) mg/dl Est Cr Clr Drug Dosing Not Reportable Est GFR ( Amer) 75.9 ml/min Est GFR (Non-Af Amer) 65.5 ml/min BUN/Creatinine Ratio 10.4 (10-20) Glucose 172 H (70-99) mg/dl Lactate (0.4-2.0) mmol/L Calcium 9.3 (8.5-10.1) mg/dl Magnesium 1.9 (1.8-2.4) mg/dl Total Bilirubin 0.8 (0.2-1) mg/dl AST 19 (15-37) U/L ALT 37 (12-78) Alkaline Phosphatase 91 (45-117) U/L Troponin I < 0.015 (0-0.045) ng/ml Total Protein 7.9 (6.4-8.2) gm/dl Albumin 3.5 (3.4-5.0) gm/dl Globulin 4.4 H (2.5-4.0) gm/dl Albumin/Globulin Ratio 0.8 L (0.9-2) Procalcitonin 0.15 (0-0.5) ng/ml SARS-CoV-2 (PCR) (Negative) Influenza Type A (PCR) (Neg) Influenza Type B (PCR) (Neg) RSV (RT-PCR) (Neg) 11/17/21 11/17/21 11/17/21 Range/Units 13:06 13:06 Unknown WBC (4.8-10.8) K/uL RBC (4.7-6.1) M/uL Hgb (14.0-18.0) g/dL Hct (42-52) % MCV (80-100) fL MCH (25-34) pg MCHC (32-36) g/dL RDW Std Deviation (36.4-46.3) fL RDW Coeff of Ro (11.5-14.5) % Plt Count (130-400) K/uL MPV (7.4-10.4) fL Immature Gran % (Auto) % Neut % (Auto) % Lymph % (Auto) % [place] % (Auto) % Eos % (Auto) % Baso % (Auto) % Neut # (Auto) (1.4-6.5) K/uL Lymph # (Auto) (1.2-3.4) K/uL [place] # (Auto) (0.11-0.59) K/uL Eos # (Auto) (0-0.5) K/uL Baso # (Auto) (0-0.2) K/uL Immature Gran # (Auto) (0.00-0.02) K/uL PT 10.8 (9.0-12.0) Seconds INR 1.1 (0.9-1.1) APTT 30.4 (21.0-31.0) Seconds PTT Ratio 1.2 Sodium (136-145) mmol/L Potassium (3.5-5.1) mmol/L Chloride (98-107) mmol/L Carbon Dioxide (21-32) mmol/L Anion Gap (3-11) BUN (7-18) mg/dl Creatinine (0.6-1.4) mg/dl Est Cr Clr Drug Dosing Est GFR ( Amer) ml/min Est GFR (Non-Af Amer) ml/min BUN/Creatinine Ratio (10-20) Glucose (70-99) mg/dl Lactate 1.7 (0.4-2.0) mmol/L Calcium (8.5-10.1) mg/dl Magnesium (1.8-2.4) mg/dl Total Bilirubin (0.2-1) mg/dl AST (15-37) U/L ALT (12-78) Alkaline Phosphatase (45-117) U/L Troponin I (0-0.045) ng/ml Total Protein (6.4-8.2) gm/dl Albumin (3.4-5.0) gm/dl Globulin (2.5-4.0) gm/dl Albumin/Globulin Ratio (0.9-2) Procalcitonin (0-0.5) ng/ml SARS-CoV-2 (PCR) NEGATIVE (Negative) Influenza Type A (PCR) Negative (Neg) Influenza Type B (PCR) Negative (Neg) RSV (RT-PCR) Negative (Neg) Imaging Data Radiologist's Impression: Chest X-Ray 11/17/21 12:31 XR chest 1V portable CLINICAL HISTORY: Sepsis. COMPARISON STUDY: Chest radiograph June 01, 2020. FINDINGS: Mild cardiomegaly is noted. This is unchanged. No evidence for pulmonary edema. There is no pneumothorax or pleural effusion. No consolidation is identified. The appearance of the chest is unchanged. IMPRESSION: No acute cardiopulmonary findings. ACT 112: Negative or not required by law. Electronically signed by: Dirk Croft M.D. 11/17/2021 1:18 PM ECG Data Attestation: I personally reviewed and interpreted this ECG as follows: Additional Comments: Twelve-lead EKG: Per my interpretation there is a sinus tachycardia at a rate of 101. No ST elevation. No PVCs. Normal QTC. MDM Narrative Patient presents with a fever and a bad cough and some lethargy this morning. He was tachypneic with hypoxia with 87% sats on room air. Does not use home oxygen. 2 L gives him 95% saturations. He is tachycardic. He was also tachypneic when he came in. Not appear to be in any significant distress. He has some rhonchi on the left on my exam. The patient's CBC was unremarkable. Chemistry panel was unremarkable. Glucose is 172. Troponin is negative. Procalcitonin is normal. Lactic acid is negative. Urinalysis is pending. CT scan of the chest is pending. Because of the patient's hypoxia when he came in and his high fever and lethargy, the patient will be seen by the hospitalist for further inpatient evaluation and care. Impression & Plan Fever, Hypoxia, Weakness Discharge Plan Visit Data Chief Complaint: Weakness Stated Complaint: FLU SX, FEVER, LETHARGIC ED Provider: Arnold Becerra Discharge Problem: Fever, Hypoxia, Weakness Patient Disposition: Being Evaluated by Hospitalist Forms Stand Alone Forms: [facility] Prescriptions Prescriptions: No Action aspirin [Adult Aspirin Regimen] 81 mg tablet,delayed release (DR/EC) 81 mg PO QAM RF: 0 (DME) OneTouch Ultra Blue Test Strip Strip See Rx Instructions .ROUTE .MEDSUPPLY Qty: 100 RF: 3 atorvastatin [Lipitor] 10 mg tablet 10 mg PO QAM Qty: 90 RF: 1 levothyroxine 25 mcg tablet 25 mcg PO DAILY Qty: 90 RF: 1 benzonatate 100 mg capsule 100 mg PO TID PRN (Reason: cough) Qty: 30 RF: 0 furosemide 20 mg tablet 20 mg PO DAILY Qty: 90 RF: 3 (DME) OneTouch Ultra Blue Test Strip Strip See Rx Instructions .ROUTE .MEDSUPPLY Qty: 50 RF: 5 carvedilol 6.25 mg tablet 6.25 mg PO BID RF: 0 multivitamin Tablet 1 tab PO DAILY RF: 0 losartan 50 mg tablet 25 mg PO QAM RF: 0 Referrals Referrals: Marlene Haines PA-C [Primary Care Provider] - Discharge Problem: Fever Qualifiers: Fever type: unspecified Qualified Code(s): R50.9 - Fever, unspecified
[2021-11-17 13:18] LABS: Basophils # (auto) 0.01 K/uL (0-0.2); Basophils % (auto) 0.1 %; Eosinophils # (auto) 0.04 K/uL (0-0.5); Eosinophils % (auto) 0.4 %; Hematocrit (blood only) 46.6 % (42-52); Hemoglobin 15.6 g/dL (14.0-18.0); Immature Granulocytes # (auto) 0.02 K/uL (0.00-0.02); Immature Granulocytes % (auto) 0.2 %; Lymphocytes # (auto) 1.08 K/uL (1.2-3.4); Lymphocytes % (auto) 11.3 %; Mean Corpuscular Hemoglobin 28.5 pg (25-34); Mean Corpuscular Hgb Conc 33.5 g/dL (32-36); Mean Corpuscular Volume 85.2 fL (80-100); Mean Platelet Volume 9.5 fL (7.4-10.4); Monocytes # (auto) 0.86 K/uL (0.11-0.59); Neutrophils # (auto) 7.57 K/uL (1.4-6.5); Platelet Count 158 K/uL (130-400); RDW Coefficient of Variation 15.3 % (11.5-14.5); Red Blood Count 5.47 M/uL (4.7-6.1); White Blood Count 9.58 K/uL (4.8-10.8)
--- NOTE | 2021-11-17 13:19 | XRay Report ---
XR chest 1V portable CLINICAL HISTORY: Sepsis. COMPARISON STUDY: Chest radiograph June 01, 2020. FINDINGS: Mild cardiomegaly is noted. This is unchanged. No evidence for pulmonary edema. There is no pneumothorax or pleural effusion. No consolidation is identified. The appearance of the chest is unc hanged. IMPRESSION: No acute cardiopulmonary findings. ACT 112: Negative or not required by law. Electronically signed by: Dirk Croft M.D. 11/17/2021 1:18 PM
[2021-11-17 13:35] LABS: INR 1.1 (0.9-1.1); Partial Thromboplastin Ratio 1.2; Partial Thromboplastin Time 30.4 Seconds (21.0-31.0); Prothrombin Time 10.8 Seconds (9.0-12.0)
[2021-11-17 13:37] LABS: Albumin Level 3.5 gm/dl (3.4-5.0); Aspartate Aminotransferase 19 U/L (15-37); BUN Creatinine Ratio 10.4 (10-20); Blood Urea Nitrogen 12 mg/dl (7-18); Calcium 9.3 mg/dl (8.5-10.1); Carbon Dioxide 29 mmol/L (21-32); Chloride 99 mmol/L (98-107); Est GFR (African American) 75.9 ml/min; Est GFR (Non-African American) 65.5 ml/min; Glucose 172 mg/dl (70-99); Magnesium 1.9 mg/dl (1.8-2.4); Sodium 134 mmol/L (136-145)
[2021-11-17 13:45] LABS: Influenza A virus by PCR Negative (Neg); Influenza B virus by PCR Negative (Neg); RSV by PCR Negative (Neg); SARS CoV2 RNA(COVID-19) InHosp NEGATIVE (Negative)
[2021-11-17 14:00] LABS: Alanine Aminotransferase 37 (12-78); Albumin Globulin Ratio 0.8 (0.9-2); Alkaline Phosphatase 91 U/L (45-117); Bilirubin,Total 0.8 mg/dl (0.2-1); Globulin 4.4 gm/dl (2.5-4.0); Total Protein 7.9 gm/dl (6.4-8.2); Troponin I < 0.015 ng/ml (0-0.045)
--- NOTE | 2021-11-17 15:01 | History & Physical Report ---
Date of Service November 17, 2021 Assessment & Plan (1) Sepsis: Plan: Lactate 1.7 SIRS criteria met with temperature and HR NSS 2L bolus then LR @ 125 ml/hr Suspect source of prostatitis, less likely pneumonia (suspect CT changes from aspiration this morning) (2) Acute bacterial prostatitis: Plan: Based on history, prostate not examined in ER to avoid bacterial spread PSA added to prior labs however even if this is normal would assume he has prostatitis based on symptoms Ciprofloxacin 400mg IV BID Follow up urine and blood cultures (3) Type 2 diabetes mellitus: Plan: HbA1C 7.6 in April (patient denies any history of diabetes and not on medications. Repeat with AM labs On no medications for this Start Lantus 0-10 units BID Novolog: Goal BSG Range: Low 110 mg/dL, High 150 mg/dL Correction Factor: 30 mg/dL/unit Carbohydrate ratio = 12 g/unit BSGs ACHS if eating, q6h if npo (4) Hypoxia: Plan: Aim O2 sats > 90%, suspect from aspiration pneumonitis (5) Hypertension: Plan: Continue his usual carvedilol and losartan (6) Gastroesophageal reflux disease: Plan: On no treatment for this. Monitor symptoms. (7) BMI 40.0-44.9, adult: (8) Hypothyroidism: Plan: TSH WNL in April Continue levothyroxine 25 mcg PO daily Plan: VTE Prophylaxis - Lovenox 40mg SQ BID (increased dose due to morbid obesity) Diet - T2DM Disposition - Observation to med/surg Admission and Anticipated Discharge Date Admission Date: November 17, 2021 History of Present Illness Chief Complaint: Altered mental state, generalized weakness Primary Care Provider: Marlene Haines PA-C Omega Chawla is a 71 year old male who presents to the ER via EMS with lethargy and shortness of breath. The patient doesn't remember how he got here. He does note having a cough since the weekend. Non-productive. No chest pain, abdominal pain or diarrhea. Per report he was home on a chair and was unable to get up therefore his family called EMS. O2 sats 87% on room air therefore placed on 2 LPM O2. On discussion with his over the phone and his son in the ER the patient has had strong smelling urine for the last 2-4 weeks. He has been getting hot since the weekend therefore spending more time outside in the cool air which is unusual for him. He has had a cough for the last few days. His was treating this with anti-tussives. This morning around 3am he vomited up the cough syrup and went back to sleep. His tried to wake him up around 9am and he quickly went back to sleep. 11am he was very confused and unable to get up so his called for an ambulance. In the ER CXR and CT was concerning for possible pneumonia. He was started on ceftriaxone and azithromycin to cover for this and referred to medicine for admission and ongoing treatment of fever and hypoxia. Allergies Allergy/AdvReac Type Severity Reaction Status Date / Time Penicillins Allergy Mild rash Verified 11/17/21 16:20 codeine AdvReac Intermediate hallucinati Verified 11/17/21 16:20 ons metformin AdvReac Intermediate diarrhea Verified 11/17/21 16:20 oxycodone AdvReac Intermediate hallucinati Verified 11/17/21 16:20 ons lisinopril AdvReac Mild cough Verified 11/17/21 16:20 olmesartan AdvReac Mild cough Verified 11/17/21 16:20 NARCOTICS AdvReac Intermediate hallucinati Uncoded 11/17/21 16:20 ons Home Medications Medication Instructions Recorded Confirmed Type aspirin 81 mg tablet,delayed 81 mg PO QAM 08/28/18 11/17/21 History release (Adult Aspirin Regimen) carvedilol 6.25 mg tablet 6.25 mg PO BID 03/15/21 11/17/21 History losartan 50 mg tablet 25 mg PO QAM tab 03/15/21 11/17/21 History multivitamin 1 tab PO DAILY 03/15/21 11/17/21 History atorvastatin 10 mg tablet (Lipitor) 10 mg PO QAM #90 tab 09/01/21 11/17/21 Rx levothyroxine 25 mcg tablet 25 mcg PO DAILY #90 tab 09/12/21 11/17/21 Rx benzonatate 100 mg capsule 100 mg PO TID PRN #30 cap 11/16/21 11/17/21 Rx Past Med/Surg History Medical History Chronic osteoarthritis Dyslipidemia Edema of both legs History of DVT (deep vein thrombosis) post-op right foot surgery (2005) Hypertension Lumbar facet joint syndrome Lumbar spinal stenosis Multifactorial multilevel Obesity Osteoarthritis Piriformis syndrome Protrusion of lumbar intervertebral disc L4-5, small lateral right sided Tachycardia remote hx controlled on beta lanre Type 2 diabetes mellitus Surgical History Fusion of lumbosacral spine Left SI joint fusion H/O foot surgery R&L History of colonoscopy History of difficult intubation Left SI joint fusion: 12/16/19: Grade view 1, Glidescope#4, ETT 8.0 at [facility] History of elbow surgery RT History of total knee arthroplasty RIGHT Family History Mother Gout Hypertension Family history of diabetes mellitus Father Brain tumor Brother Diabetes Congenital deafness Family history of diabetes mellitus Diverticulitis of colon Aunt No problems noted. Other Family history non-contributory Denies family history of Ovarian cancer Prostate cancer Myocardial infarction Lung cancer Stroke Social History Smoking Status: Never smoker Second Hand Exposure: No; Do You Dip or Chew Tobacco: Yes; Tobacco Cessation Education Requested by Patient: No (pt refuses) Hx Alcohol Use: No Hx Substance Use: No Preferred Language: Turkmen Communication Ability: Effective Visual Impairment: No Limitations Hearing Ability: Normal Childcare Aide Required: No Beliefs That Will Affect Care: None marital status: Current Living Situation: Spouse and Family current occupational status: retired Other Information That Helps Us Care for You: No Feels Safe at Home: Yes Safety Concerns: Feels Safe At This Time Seatbelt Use: always Sunscreen Use: Yes Assistive Devices: Walker Assistive Devices Comment: no assistive devices with pt at this time Review of Systems Review of Systems: All systems reviewed & are unremarkable except as noted in HPI & below Physical Exam Constitutional: well developed, well nourished and + diaphoretic; no acute distress Eyes: PERRL, conjunctivae normal, anicteric sclerae ENMT: Mouth: + dry oral mucous membranes Neck: trachea midline, no thyromegaly Respiratory: normal respiratory effort; no respiratory distress Auscultation: + crackles (left base); no diminished lung sounds, no rales, no rhonchi and no wheezes Cardiovascular: RRR, no murmur, no edema Gastrointestinal (Abdomen): normal bowel sounds, soft, nontender, no hepatosplenomegaly Musculoskeletal: no cyanosis or clubbing, extremities motor strength 5/5 Skin: no rashes, warm and dry Neurologic: moves all extremities and awake; not confused Psychiatric: A+Ox3, euthymic affect Genitourinary: no CVA tenderness Results & Data Results & Data ([facility]) Vital Signs (Past 12 Hours) Vital Signs Temp Pulse Pulse Resp BP Pulse Ox 11/17/21 14:31 37.4 C 96 H 158/75 H 95 11/17/21 14:00 95 11/17/21 13:51 30 H 95 11/17/21 13:37 110 H 20 166/86 H 95 11/17/21 13:00 95 11/17/21 12:32 95 11/17/21 12:21 39.6 C H 104 H 24 95 11/17/21 12:16 39.6 C H 30 H 162/94 H 87 L Laboratory Results Abnormal lab results 11/17/21 11/17/21 Range/Units 13:06 13:06 RDW Std Deviation 48.0 H (36.4-46.3) fL RDW Coeff of Ro 15.3 H (11.5-14.5) % Neut # (Auto) 7.57 H (1.4-6.5) K/uL Lymph # (Auto) 1.08 L (1.2-3.4) K/uL [place] # (Auto) 0.86 H (0.11-0.59) K/uL Sodium 134 L (136-145) mmol/L Glucose 172 H (70-99) mg/dl Globulin 4.4 H (2.5-4.0) gm/dl Albumin/Globulin Ratio 0.8 L (0.9-2) Diagnostic Findings XR chest 1V portable CLINICAL HISTORY: Sepsis. COMPARISON STUDY: Chest radiograph June 01, 2020. FINDINGS: Mild cardiomegaly is noted. This is unchanged. No evidence for pulmonary edema. There is no pneumothorax or pleural effusion. No consolidation is identified. The appearance of the chest is unchanged. IMPRESSION: No acute cardiopulmonary findings. Medications Administered ER Medications Given: Acetaminophen 1000mg IV NS 1L bolus Azithromycin 500mg IV Ceftriaxone 1000mg IV ECG Indication: SOB/dyspnea Rate (beats per minute): 101 Rhythm: sinus tachycardia Findings: + LAFB; no acute ischemic change Comparison ECG Date: from (December 02, 2019) Change: no significant change Code Status & VTE Plan Code Status Full VTE Prophylaxis Plan VTE Prophylaxis will be ordered: Yes PG Care Time/CCT Total # of Minutes Spent Total Time Spent with Patient: Total time spent is greater than 50% in coordination of care (as documented) at patient's floor/unit and/or counseling patient: Coding Level of Care Code 10543 Initial Inpt Care Lvl 3 Diagnoses Type 2 diabetes mellitus E11.9 Hypoxia R09.02 Hypertension I10 Gastroesophageal reflux disease K21.9 BMI 40.0-44.9, adult Z68.41 Sepsis A41.9 Acute bacterial prostatitis N41.0 Hypothyroidism E03.9
[2021-11-17] MEDS ORDERED: OPTIRAY 320 125ml IV ONE ×2 (15:04→15:16)
--- NOTE | 2021-11-17 15:26 | CT Scan Report ---
CT angio chest PE protocol CLINICAL HISTORY: PE chest pain, weakness TECHNIQUE: Multidetector row helical CT of the chest was performed. Coronal and sagittal reformations were obtained. Coronal and sagittal MIPS were obtained from the axial data set and were submitted fo r review. Automated dose lowering techniques and/or adjustment according to patient size were utiliz ed for this exam. Comparison: Comparison is made to CT chest 07/05/2009 FINDINGS: Lungs and pleura: A few groundglass and consolidative opacities are seen in the right lung base. Prev iously noted right fissural nodule is unchanged in size and may represent a parenchymal lymph node. Heart and pericardium: Heart size is normal. No pericardial effusion. Vessels: No evidence of pulmonary embolism. The pulmonary trunk measures 33 mm in diameter. Mediastinum and merced: There is a 19 mm subcarinal lymph node. Additional prominent nodes are seen. Chest wall and lower neck: Unremarkable. Abdomen: Hepatic steatosis is noted. Bones: Degenerative changes in the thoracic spine. IMPRESSION: 1. No evidence of pulmonary embolism. 2. Consolidative opacities at the left lung base may represent aspiration and/or pneumonia. 3. Pulmonary hypertension. 4. Hepatic steatosis. ACT 112: Negative or not required by law. Electronically signed by: Cristi Patel M.D. 11/17/2021 3:25 PM
[2021-11-17 15:45] LABS: Appearance Urine Cloudy (Clear); Bacteria Urine Automated 1+ (Negative); Bilirubin Urine Negative (Negative); Blood Urine Trace (Negative); Color Urine Yellow; Epithelial Cell Urine Auto 0-5 /lpf (0-5); Glucose Urine UA Negative (Negative); Ketones Urine Negative (Negative); Leukocyte Esterase Urine 3+ (Negative); Nitrite Urine Positive (Negative); Protein Urine Negative (Negative); RBC Urine Automated 0-4 /hpf (0-4); Specific Gravity Urine 1.031 (1.000-1.030); Urobilinogen Urine Negative (Negative); WBC Urine Automated >30 /hpf (0-5)
[2021-11-17] MEDS ORDERED: ACETAMINOPHEN 325 MG TAB PO PRN (19:04)
[2021-11-17] MEDS ORDERED: GLUCAGON FOR INJ 1 MG VIAL SQ PRN (20:55)
[2021-11-17] MEDS ORDERED: DEXTROSE 50% 50 ML SYRINGE IV PRN (20:55)
[2021-11-17] MEDS ORDERED: CARBOHYDRATES FOR HYPOGLYCEMIA PO PRN (20:55)
[2021-11-17] MEDS ORDERED: GLUCOSE 10 TABS/TUBE PO PRN (20:55)
[2021-11-17] MEDS ORDERED: GLUCOSE 40% GEL 15 GM TUBE PO PRN (20:55)
[2021-11-17] MEDS ORDERED: ONDANSETRON INJ 2 MG/ML 2 ML VIAL IV PRN (21:00)
[2021-11-17] MEDS ORDERED: ONDANSETRON INJ 2 MG/ML 2 ML VIAL ONE (21:04)
[2021-11-17] MEDS: CIPROFLOXACIN / D5W 400 MG/200 ML BAG IV SCH (22:25)
[2021-11-17] MEDS: carvediloL 6.25 MG TAB PO SCH (22:53)
[2021-11-17] MEDS: ENOXAPARIN INJ 40 MG/0.4 ML SYR SQ SCH (22:54)
[2021-11-17] MEDS: INSULIN GLARGINE SOLOSTAR 100 UNITS/ML 3 ML PEN SC SCH (22:54)
[2021-11-17] MEDS: INSULIN ASPART PER UNIT SC SCH (22:55)
[2021-11-18] MEDS ORDERED: guaiFENesin 600 MG TABCR PO STA (01:11)
[2021-11-18] MEDS: LACTATED RINGER'S 1,000 ML IV SCH ×3 (01:32→12:53)
[2021-11-18] MEDS: LEVOTHYROXINE SODIUM 25 MCG TABLET PO SCH (05:50)
[2021-11-18 07:01] LABS: Basophils # (auto) 0.01 K/uL (0-0.2); Basophils % (auto) 0.1 %; Eosinophils # (auto) 0.09 K/uL (0-0.5); Eosinophils % (auto) 1.2 %; Hematocrit (blood only) 42.7 % (42-52); Hemoglobin 13.9 g/dL (14.0-18.0); Immature Granulocytes # (auto) 0.03 K/uL (0.00-0.02); Immature Granulocytes % (auto) 0.4 %; Lymphocytes # (auto) 1.44 K/uL (1.2-3.4); Mean Corpuscular Hemoglobin 27.9 pg (25-34); Mean Corpuscular Hgb Conc 32.6 g/dL (32-36); Mean Corpuscular Volume 85.7 fL (80-100); Mean Platelet Volume 9.8 fL (7.4-10.4); Monocytes # (auto) 0.87 K/uL (0.11-0.59); Monocytes % (auto) 11.5 %; Neutrophils # (auto) 5.13 K/uL (1.4-6.5); Neutrophils % (auto) 67.8 %; Platelet Count 149 K/uL (130-400); RDW Coefficient of Variation 15.7 % (11.5-14.5); RDW Standard Deviation 49.6 fL (36.4-46.3); Red Blood Count 4.98 M/uL (4.7-6.1); White Blood Count 7.57 K/uL (4.8-10.8)
[2021-11-18 07:34] LABS: BUN Creatinine Ratio 9.4 (10-20); Calcium 8.4 mg/dl (8.5-10.1); Creatinine Clr Calc Pharmacy 90.1 ml/min; Est GFR (Non-African American) 70.8 ml/min; Potassium 3.6 mmol/L (3.5-5.1)
[2021-11-18 07:39] LABS: Estimated Average Glucose 214 mg/dl; Hemoglobin A1C 9.1 % (4.5-5.6)
--- NOTE | 2021-11-18 08:30 | Electrocardiogram Report ---
Test Reason : Blood Pressure : / mmHG Vent. Rate : 101 BPM Atrial Rate : 101 BPM P-R Int : 160 ms QRS Dur : 094 ms QT Int : 322 ms P-R-T Axes : 056 -61 074 degrees QTc Int : 417 ms Sinus tachycardia Left anterior fascicular block Minimal voltage criteria for LVH, may be normal variant Abnormal ECG When compared with ECG of 02-DEC-2019 09:07, No significant change was found Confirmed by Lang Craig ([id number]) on 11/18/2021 8:30:24 AM Referred By: REFERRED SELF Confirmed By:Lang Craig
[2021-11-18] MEDS ORDERED: AZITHROMYCIN 250 MG TAB PO SCH (09:00)
[2021-11-18] MEDS: INSULIN ASPART PER UNIT SC SCH ×4 (09:48→21:13)
[2021-11-18] MEDS: ATORVASTATIN 10 MG TAB PO SCH (09:51)
[2021-11-18] MEDS: ENOXAPARIN INJ 40 MG/0.4 ML SYR SQ SCH ×2 (09:51→20:44)
[2021-11-18] MEDS: ASPIRIN 81 MG ECTAB PO SCH (09:51)
[2021-11-18] MEDS: carvediloL 6.25 MG TAB PO SCH ×2 (09:51→20:42)
[2021-11-18] MEDS: MULTIVITAMIN TAB PO SCH (09:52)
[2021-11-18] MEDS: INSULIN GLARGINE SOLOSTAR 100 UNITS/ML 3 ML PEN SC SCH ×2 (09:52→21:14)
[2021-11-18] MEDS: LOSARTAN POTASSIUM 25 MG TAB PO SCH (09:52)
[2021-11-18] MEDS ORDERED: cefTRIAXone SODIUM 2,000 MG/70 ML BAG IV SCH (12:00)
[2021-11-18] MEDS: cefTRIAXone SODIUM 2,000 MG in DEXTROSE 5% 50 ML IV SCH (12:53)
[2021-11-18] MEDS: guaiFENesin/CODEINE 100MG/10MG 5ML UDC PO PRN (18:26)
--- NOTE | 2021-11-18 19:16 | Hospitalist Progress Note ---
Date of Service November 18, 2021 Assessment & Plan (1) Sepsis: Plan: source(s) - urine and LLL Pneumonia as seen on CT. d/c cipro - change back to rocephin. consider levaquin at discharge - will provide good coverage for both sources. follow cx's. (2) LLL pneumonia: Plan: some rales L base on exam; CTA chest w/ LLL infiltrates. cont rocephin. add tessalon 200mg TID scheduled. robitussin ac prn. follow cultures. (3) Acute bacterial prostatitis: Plan: needs BRITTANY before d/c u/a did suggest UTI and/or prostatitis (+nitrites, etc) follow cultures rocephin IV (4) Type 2 diabetes mellitus: Plan: a1c 9.1% at discharge will recommend metformin +/- januvia (5) Hypoxia: Plan: transiently was <90% in room air since then sats were >90% pulmonary HTN findings on CT will 2-step him before discharge just to be complete (6) Hypertension: Plan: Continue his usual carvedilol and losartan (7) Gastroesophageal reflux disease: Plan: on no Rx (8) BMI 40.0-44.9, adult: Plan: BMI 40.8 (9) Hypothyroidism: Plan: TSH WNL in April 2021 Continue levothyroxine 25 mcg PO daily (10) Metabolic encephalopathy: Plan: 2nd to LLL pneumonia + UTI/prostatitis resolved Plan: DVT proph - lovenox home tomorrow depending on status? Admission and Anticipated Discharge Date Admission Date: November 17, 2021 Subjective pt's only complaint is that of cough he requests something for this denies other complaints confusion resolved feeling good fatigue improved eating well voiding fine wants to go home tomorrow Review of Systems Review of Systems: gen - no fevers or chills cv - no cp pulm - no dyspnea, no pleuritic pain GI - no vomiting or abd pain Physical Exam Physical Exam: gen - NAD, obese, a/o x 3 mouth - MMM neck - no JVD heart - RRR, s1 s2 lungs - minimal rales left base abd - soft NT ND BS+ ext - 1+ edema b/l, pulses 2+ b/l Results & Data Results & Data ([facility]) Vital Signs (Past 12 Hours) Vital Signs Temp Pulse Resp BP Pulse Ox 11/18/21 15:54 37.0 C 75 17 137/79 91 Laboratory Results Laboratory Results - last 24 hr 11/17/21 11/18/21 11/18/21 22:42 00:41 05:53 WBC RBC Hgb Hct MCV MCH MCHC RDW Std Deviation RDW Coeff of Ro Plt Count MPV Immature Gran % (Auto) Neut % (Auto) Lymph % (Auto) [place] % (Auto) Eos % (Auto) Baso % (Auto) Neut # (Auto) Lymph # (Auto) [place] # (Auto) Eos # (Auto) Baso # (Auto) Immature Gran # (Auto) Sodium Potassium Chloride Carbon Dioxide Anion Gap BUN Creatinine Est Cr Clr Drug Dosing Est GFR ( Amer) Est GFR (Non-Af Amer) BUN/Creatinine Ratio Glucose POC Glucose 164 H 180 H Estimat Average Glucose 214 Hemoglobin A1c 9.1 H Calcium 11/18/21 11/18/21 11/18/21 05:53 05:53 08:18 WBC 7.57 RBC 4.98 Hgb 13.9 L Hct 42.7 MCV 85.7 MCH 27.9 MCHC 32.6 RDW Std Deviation 49.6 H RDW Coeff of Ro 15.7 H Plt Count 149 MPV 9.8 Immature Gran % (Auto) 0.4 Neut % (Auto) 67.8 Lymph % (Auto) 19.0 [place] % (Auto) 11.5 Eos % (Auto) 1.2 Baso % (Auto) 0.1 Neut # (Auto) 5.13 Lymph # (Auto) 1.44 [place] # (Auto) 0.87 H Eos # (Auto) 0.09 Baso # (Auto) 0.01 Immature Gran # (Auto) 0.03 H Sodium 138 Potassium 3.6 Chloride 104 Carbon Dioxide 29 Anion Gap 5.0 BUN 10 Creatinine 1.06 Est Cr Clr Drug Dosing 90.1 Est GFR ( Amer) 82.0 Est GFR (Non-Af Amer) 70.8 BUN/Creatinine Ratio 9.4 L Glucose 154 H POC Glucose 143 H Estimat Average Glucose Hemoglobin A1c Calcium 8.4 L 11/18/21 11/18/21 11:57 17:01 WBC RBC Hgb Hct MCV MCH MCHC RDW Std Deviation RDW Coeff of Ro Plt Count MPV Immature Gran % (Auto) Neut % (Auto) Lymph % (Auto) [place] % (Auto) Eos % (Auto) Baso % (Auto) Neut # (Auto) Lymph # (Auto) [place] # (Auto) Eos # (Auto) Baso # (Auto) Immature Gran # (Auto) Sodium Potassium Chloride Carbon Dioxide Anion Gap BUN Creatinine Est Cr Clr Drug Dosing Est GFR ( Amer) Est GFR (Non-Af Amer) BUN/Creatinine Ratio Glucose POC Glucose 154 H 140 H Estimat Average Glucose Hemoglobin A1c Calcium Diagnostic Findings blood/urine cx's negative to date PG Care Time/CCT Total # of Minutes Spent Total Time Spent with Patient: Total time spent is greater than 50% in coordination of care (as documented) at patient's floor/unit and/or counseling patient: Coding Level of Care Code 42755 Subseq Obs Care Lvl 3 Diagnoses Sepsis A41.9 Acute bacterial prostatitis N41.0 Type 2 diabetes mellitus E11.9 Hypoxia R09.02 Hypertension I10 Gastroesophageal reflux disease K21.9 BMI 40.0-44.9, adult Z68.41 Hypothyroidism E03.9 LLL pneumonia J18.9 Metabolic encephalopathy G93.41
[2021-11-18] MEDS: CIPROFLOXACIN / D5W 400 MG/200 ML BAG IV SCH (19:25)
[2021-11-18] MEDS: BENZONATATE 100 MG CAPSULE PO SCH (20:42)
[2021-11-19] MEDS: LEVOTHYROXINE SODIUM 25 MCG TABLET PO SCH (05:25)
[2021-11-19] MEDS: MULTIVITAMIN TAB PO SCH (08:42)
[2021-11-19] MEDS: LOSARTAN POTASSIUM 25 MG TAB PO SCH (08:42)
[2021-11-19] MEDS: ASPIRIN 81 MG ECTAB PO SCH (08:42)
[2021-11-19] MEDS: BENZONATATE 100 MG CAPSULE PO SCH ×3 (08:42→21:19)
[2021-11-19] MEDS: carvediloL 6.25 MG TAB PO SCH ×2 (08:43→21:20)
[2021-11-19] MEDS: ENOXAPARIN INJ 40 MG/0.4 ML SYR SQ SCH ×2 (08:43→21:19)
[2021-11-19] MEDS: ATORVASTATIN 10 MG TAB PO SCH (08:43)
[2021-11-19] MEDS: INSULIN GLARGINE SOLOSTAR 100 UNITS/ML 3 ML PEN SC SCH ×2 (09:08→21:27)
[2021-11-19] MEDS: INSULIN ASPART PER UNIT SC SCH ×4 (09:09→20:42)
[2021-11-19 09:21] LABS: BUN Creatinine Ratio 11.8 (10-20); Calcium 8.7 mg/dl (8.5-10.1); Creatinine Clr Calc Pharmacy 107.3 ml/min; Est GFR (African American) 100.4 ml/min; Est GFR (Non-African American) 86.6 ml/min; Potassium 3.6 mmol/L (3.5-5.1)
[2021-11-19 09:22] LABS: C Reactive Protein 11.8 mg/dl (0-0.29)
[2021-11-19] MEDS: cefTRIAXone SODIUM 2,000 MG in DEXTROSE 5% 50 ML IV SCH (12:29)
--- NOTE | 2021-11-19 20:45 | Hospitalist Progress Note ---
Date of Service November 19, 2021 Assessment & Plan (1) Sepsis: Plan: source(s) - LLL Pneumonia as seen on CT, +/- UTI (ua very suggestive of UTI, but culture negative; BRITTANY w/o prostatitis). cont IV rocephin. change to PO levaquin tomorrow. follow cx's. (2) LLL pneumonia: Plan: clinically improved. cont rocephin. cont tessalon 200mg TID scheduled. cont robitussin ac prn. follow cultures. see #1 re: abx. (3) Acute bacterial prostatitis: Plan: ruled out BRITTANY not c/w prostatitis. u/a did suggest UTI but culture negative. abx for #2 will cover the urine in the event urine cx was falsely negative. (4) Type 2 diabetes mellitus: Plan: a1c 9.1% patient states he cannot take metformin - had severe GI side effects; took for 2 weeks in the past and had to stop because of such consider amaryl consider januvia pt agreeable to taking an oral med (5) Hypoxia: Plan: transiently was <90% in room air since then sats were >90% pulmonary HTN findings on CT nursing walked him about 200 feet - lowest O2 sats were low 90s (6) Hypertension: Plan: Continue his usual carvedilol and losartan (7) Gastroesophageal reflux disease: Plan: on no Rx (8) BMI 40.0-44.9, adult: Plan: BMI 40.8 (9) Hypothyroidism: Plan: TSH WNL in April 2021 Continue levothyroxine 25 mcg PO daily (10) Metabolic encephalopathy: Plan: 2nd to LLL pneumonia +/- UTI - resolved (11) BPH NOS w/o ur obs/LUTS: Plan: BPH on BRITTANY no prostatitis voiding ok defer on alpha lanre/meds (12) Lumbar spinal stenosis: Plan: chronic main cause of ambulatory dysfunction PT eval requested Plan: DVT proph - lovenox hold on discharge - weakness persists, difficulty transferring, etc PT eval ordered change observation to full admission status updated by phone today Admission and Anticipated Discharge Date Admission Date: November 19, 2021 Subjective patient hoping for discharge today he feels much better mentation/thinking improved and at baseline he admits to feeling weaker than usual he does have a lift chair and walker at home he does not sleep in the bed; sleeps in a chair I spoke with his by phone - she reports that he has difficulty standing alone from a chair, she is able to assist him with standing/transferring during my visit I assisted him from the chair to the bed I used moderate assistance to stand him, and he was mildly unsteady with pivoting/transferring to the bed staff did take him for a walk in the hallway this am - he apparently did an entire lap and did well without loss of balance states that once he is up and moving his walking is ok cough improved with robitussin ac and tessalon TID Review of Systems Review of Systems: gen - good appetite finally; no fevers; weak but improving cv - no chest pain pulm - no dyspnea, cough remains GI - no diarrhea - voiding without dysuria or difficulty Physical Exam Physical Exam: gen - NAD, obese, a/o x 3; sitting in chair comfortably mouth - MMM neck - no JVD heart - RRR, s1 s2, no murmur lungs - minimal rales left base; no wheeze abd - soft NT ND BS+ ext - 1+ lymphedema b/l, pulses 2+ b/l neuro - overall strength is fair/poor; difficulty rising from sitting to standing (moderate assist needed); c/o back pain during the transfer (chronic back pain) BRITTANY - copious firm stool in vault; prostate enlarged but NONTENDER, no nodules, not boggy Results & Data Results & Data ([facility]) Vital Signs (Past 12 Hours) Vital Signs Temp Pulse Resp BP Pulse Ox 11/19/21 15:10 36.8 C 70 16 123/67 93 11/19/21 10:58 93 Laboratory Results Laboratory Results - last 24 hr 11/18/21 11/19/21 11/19/21 20:54 07:57 08:49 Sodium 135 L Potassium 3.6 Chloride 103 Carbon Dioxide 27 Anion Gap 5.0 BUN 11 Creatinine 0.89 Est Cr Clr Drug Dosing 107.3 Est GFR ( Amer) 100.4 Est GFR (Non-Af Amer) 86.6 BUN/Creatinine Ratio 11.8 Glucose 143 H POC Glucose 132 H 142 H Calcium 8.7 C-Reactive Protein 11.80 H 11/19/21 11/19/21 11/19/21 12:14 17:05 20:35 Sodium Potassium Chloride Carbon Dioxide Anion Gap BUN Creatinine Est Cr Clr Drug Dosing Est GFR ( Amer) Est GFR (Non-Af Amer) BUN/Creatinine Ratio Glucose POC Glucose 141 H 144 H 131 H Calcium C-Reactive Protein Diagnostic Findings blood cx's neg urine cx neg (contamination) PG Care Time/CCT Total # of Minutes Spent Total Time Spent with Patient: Total time spent is greater than 50% in coordination of care (as documented) at patient's floor/unit and/or counseling patient: Coding Level of Care Code 76554 Subseq Hosp Care Lvl 3 Diagnoses Sepsis A41.9 LLL pneumonia J18.9 Acute bacterial prostatitis N41.0 Type 2 diabetes mellitus E11.9 Hypoxia R09.02 Hypertension I10 Gastroesophageal reflux disease K21.9 BMI 40.0-44.9, adult Z68.41 Hypothyroidism E03.9 Metabolic encephalopathy G93.41 BPH NOS w/o ur obs/LUTS N40.0 Lumbar spinal stenosis M48.061
[2021-11-19] MEDS: guaiFENesin/CODEINE 100MG/10MG 5ML UDC PO PRN (21:19)
[2021-11-20] MEDS: guaiFENesin/CODEINE 100MG/10MG 5ML UDC PO PRN (01:48)
[2021-11-20] MEDS: LEVOTHYROXINE SODIUM 25 MCG TABLET PO SCH (06:08)
[2021-11-20] MEDS: ASPIRIN 81 MG ECTAB PO SCH (08:24)
[2021-11-20] MEDS: carvediloL 6.25 MG TAB PO SCH (08:24)
[2021-11-20] MEDS: BENZONATATE 100 MG CAPSULE PO SCH (08:24)
[2021-11-20] MEDS: LOSARTAN POTASSIUM 25 MG TAB PO SCH (08:24)
[2021-11-20] MEDS: MULTIVITAMIN TAB PO SCH (08:24)
[2021-11-20] MEDS: ATORVASTATIN 10 MG TAB PO SCH (08:24)
[2021-11-20] MEDS: ENOXAPARIN INJ 40 MG/0.4 ML SYR SQ SCH (08:25)
[2021-11-20] MEDS ORDERED: ADVANCED PROBIOTIC 1250 MG CAPSULE PO SCH (09:00)
[2021-11-20] MEDS: INSULIN ASPART PER UNIT SC SCH ×2 (09:31→13:29)
[2021-11-20] MEDS: INSULIN GLARGINE SOLOSTAR 100 UNITS/ML 3 ML PEN SC SCH (09:31)
[2021-11-20] MEDS ORDERED: levoFLOXacin 750 MG TAB PO SCH (11:00)
--- NOTE | 2021-11-20 12:34 | Discharge Summary ---
Date of Service date of admission - November 17, 2021 date of discharge - November 20, 2021 Admission HPI Per Admitting Provider Omega Chawla is a 71 year old male who presents to the ER via EMS with lethargy and shortness of breath. The patient doesn't remember how he got here. He does note having a cough since the weekend. Non-productive. No chest pain, abdominal pain or diarrhea. Per report he was home on a chair and was unable to get up therefore his family called EMS. O2 sats 87% on room air therefore placed on 2LPM O2. On discussion with his over the phone and his son in the ER the patient has had strong smelling urine for the last 2-4 weeks. He has been getting hot since the weekend therefore spending more time outside in the cool air which is unusual for him. He has had a cough for the last few days. His was treating this with anti-tussives. This morning around 3am he vomited up the cough syrup and went back to sleep. His tried to wake him up around 9am and he quickly went back to sleep. 11am he was very confused and unable to get up so his called for an ambulance. In the ER CXR and CT was concerning for possible pneumonia. He was started on ceftriaxone and azithromycin to cover for this and referred to medicine for admission and ongoing treatment of fever and hypoxia. Principal Diagnosis LLL pneumonia Discharge Exam gen - NAD, obese, a/o x 3; sitting in chair comfortably mouth - MMM neck - no JVD heart - RRR, s1 s2, no murmur lungs - minimal rales left base; no wheeze abd - soft NT ND BS+ ext - 1+ lymphedema b/l, pulses 2+ b/l Discharge Data Allergies Allergy/AdvReac Type Severity Reaction Status Date / Time Penicillins Allergy Mild rash Verified 11/17/21 16:20 codeine AdvReac Intermediate hallucinati Verified 11/17/21 16:20 ons metformin AdvReac Intermediate diarrhea Verified 11/17/21 16:20 oxycodone AdvReac Intermediate hallucinati Verified 11/17/21 16:20 ons lisinopril AdvReac Mild cough Verified 11/17/21 16:20 olmesartan AdvReac Mild cough Verified 11/17/21 16:20 NARCOTICS AdvReac Intermediate hallucinati Uncoded 11/17/21 16:20 ons Consultations physical therapy Ordered Studies Chest X-Ray 11/17/21 12:31 XR chest 1V portable CLINICAL HISTORY: Sepsis. COMPARISON STUDY: Chest radiograph June 01, 2020. FINDINGS: Mild cardiomegaly is noted. This is unchanged. No evidence for pulmonary edema. There is no pneumothorax or pleural effusion. No consolidation is identified. The appearance of the chest is unchanged. IMPRESSION: No acute cardiopulmonary findings. ACT 112: Negative or not required by law. Electronically signed by: Dirk Croft M.D. 11/17/2021 1:18 PM Chest CTA 11/17/21 14:24 CT angio chest PE protocol CLINICAL HISTORY: PE chest pain, weakness TECHNIQUE: Multidetector row helical CT of the chest was performed. Coronal and sagittal reformations were obtained. Coronal and sagittal MIPS were obtained from the axial data set and were submitted for review. Automated dose lowering techniques and/or adjustment according to patient size were utilized for this exam. Comparison: Comparison is made to CT chest 07/05/2009 FINDINGS: Lungs and pleura: A few groundglass and consolidative opacities are seen in the right lung base. Previously noted right fissural nodule is unchanged in size and may represent a parenchymal lymph node. Heart and pericardium: Heart size is normal. No pericardial effusion. Vessels: No evidence of pulmonary embolism. The pulmonary trunk measures 33 mm in diameter. Mediastinum and merced: There is a 19 mm subcarinal lymph node. Additional prominent nodes are seen. Chest wall and lower neck: Unremarkable. Abdomen: Hepatic steatosis is noted. Bones: Degenerative changes in the thoracic spine. IMPRESSION: 1. No evidence of pulmonary embolism. 2. Consolidative opacities at the left lung base may represent aspiration and/or pneumonia. 3. Pulmonary hypertension. 4. Hepatic steatosis. ACT 112: Negative or not required by law. Electronically signed by: Cristi Patel M.D. 11/17/2021 3:25 PM Diabetes Follow up Diabetes Follow-up Needed for HgbA1c >9% Hospital Course (1) Sepsis: Source(s) - LLL Pneumonia as seen on CT, +/- UTI (ua very suggestive of UTI, but culture was negative; BRITTANY w/o prostatitis). Initially treated with IV rocephin then changed to PO levaquin. Blood cultures remained negative during the stay. (2) LLL pneumonia: clinically improved during the stay. Initially received IV rocephin then transitioned to PO levaquin. Never had o2 requirement. He will complete 3 more days of oral levaquin at home. (3) Acute bacterial prostatitis: ruled out. BRITTANY not c/w prostatitis. u/a did suggest UTI but culture negative. if there was a UTI the levaquin should be adequate coverage. (4) Type 2 diabetes mellitus: Hba1c 9.1% Patient was not on any therapies upon admission. Patient stated he cannot take metformin - had severe GI side effects; took for 2 weeks in the past and had to stop because of those side effects. Given the high a1c I advised oral medication. Will start amaryl 1mg daily with food. Encouraged him to check his BSGs at least once, preferably twice, a day at home. (5) Hypoxia: transiently was <90% in room air on hospital day #1. since that time o2 sats were >90%. pulmonary HTN findings on CT of the chest. Patient's O2 sats were normal in room air with walking. (6) Hypertension: Continue his usual carvedilol and losartan (7) Gastroesophageal reflux disease: on no Rx for such (8) BMI 40.0-44.9, adult: BMI 40.8 (9) Hypothyroidism: TSH WNL in April 2021 Continue levothyroxine 25 mcg PO daily (10) Metabolic encephalopathy: 2nd to LLL pneumonia +/- UTI - resolved (11) BPH NOS w/o ur obs/LUTS: BPH on BRITTANY no prostatitis however voiding without difficulty while here defer on alpha lanre/meds at this time (12) Lumbar spinal stenosis: chronic main cause of ambulatory dysfunction PT byron requested, and he did well enough to return home with his he has a lift chair, rolling walker, etc already at his home Total Time Total Time Spent Total Time Spent (In Minutes): 40 Discharge Plan Discharge Items Patient Disposition: Home - Self-Care Reason For Visit: Confusion, Fever, Cough Discharge Diagnosis: 1. left-sided pneumonia - improving 2. possible urinary tract infection - improved/resolved 3. enlarged prostate but no prostate infection 4. uncontrolled type 2 diabetes ; hemoglobin a1c 9.1% Activity: As commented below Activity Comment: gradually increase your activities over the next 5-7 days Non-emergency contact: Primary Care Provider Call non-emergency contact if: you have any medication questions, your symptoms worsen and you have a fever Follow-up/Referrals: Marlene Haines PA-C [Primary Care Provider] - (see Ms Haines within 5 days ) Diet: Carb Consistent or DM2 Addtl Attending Provider Instructions: Mr Chawla, You were hospitalized for weakness, confusion, fever, and cough. A CAT scan of your lungs showed that you had pneumonia in the bottom of the left lung. Your initial urine test was suggestive of urinary tract infection as well. All of your symptoms improved while here - appetite, fever, confusion, weakness, etc - with treatment of the pneumonia with antibiotics. You were seen by the physical therapist on 11/20 and you were felt to be ready to return home with your . Your prostate exam showed an enlarged prostate but it did not feel infected. It is uncertain if urine infection was truly present but, if it was, the antibiotics for the pneumonia will cover the urine as well. Of note - the confusion you had at home (also know as delirium) was due to the infection. Finally, your hemoglobin a1c test for your diabetes was high at 9.1%. Ideally it should be <7%. You are at a point where medication is needed to keep the blood sugars down. Recommendations - 1. antibiotics - * levofloxacin 750mg once daily x 3 additional days, first dose tomorrow on 11/21 2. for cough - * you may increase the tessalon pearles to 200mg and take every 8 hours as needed for cough * I have called in guaifenesin/codeine cough syrup for you; you can take 5ml every 6 hours as needed for cough * codeine cough syrup can make you sleepy; thus, do not drive while taking this medication; do not drink alcohol while taking this medication 3. for diabetes - * please check your blood sugars twice daily * check it every morning before breakfast; also check it one other time during the daytime * for your 2nd sugar check you can vary the time you check it day to day * for example, on any given day check it before supper * on another day check it at bedtime * etc * write your numbers down in a notebook so you can keep track of your sugars * [facility] * medication for the diabetes - * glimepiride 1mg once daily; take with breakfast * start this TOMORROW morning, 12/27 4. continue to use your walker at home and when you leave your home Follow-up - see separate section Return to [facility] if - * you have recurrent fevers over 100 degrees * you have worsening shortness of breath or chest pain * you have severe diarrhea * any other concerns Continue to feel better! Happy Holidays, Dr Watson Pending Studies at Discharge: No Stand-Alone Forms: My [facility], Smoking Cessation Medications and DC Order Prescriptions: New levofloxacin 750 mg Tablet 750 mg PO DAILY 3 Days Qty: 3 RF: 0 codeine-guaifenesin [Guaiatussin AC] 10-100 mg/5 mL Liquid 5 ml PO Q6H PRN (Reason: cough) Qty: 120 RF: 0 glimepiride [Amaryl] 1 mg tablet 1 mg PO QAM Qty: 30 RF: 5 (DME) OneTouch Verio test strips Strip See Rx Instructions .Route Qty: 100 RF: 1 Continued aspirin [Adult Aspirin Regimen] 81 mg tablet,delayed release (DR/EC) 81 mg PO QAM RF: 0 atorvastatin [Lipitor] 10 mg tablet 10 mg PO QAM Qty: 90 RF: 1 levothyroxine 25 mcg tablet 25 mcg PO DAILY Qty: 90 RF: 1 carvedilol 6.25 mg tablet 6.25 mg PO BID RF: 0 multivitamin Tablet 1 tab PO DAILY RF: 0 losartan 50 mg tablet 25 mg PO QAM RF: 0 Changed benzonatate 100 mg capsule 200 mg PO TID PRN (Reason: cough) Qty: 30 RF: 0 Discharge Orders: Discharge Order (Routine); Ordered 11/20/21 Ordered By: Tk Gill/Other Patient Handouts: Managing Type 2 Diabetes, Managing Diabetes: The A1C Test, Diabetes: Meal Planning Admission Data Admit Date/Time: 11/19/21 18:02 Attending Provider: Tk Watson Admit Provider: Tk Hargrove Primary Care Provider: Marlene Haines Other Providers: Tk Hargrove Other Interventions: Discharge Summary Assessment (RN) Last Done: 11/20/21 13:39 Coding Level of Care Code D/C DAY MANAGEMENT >30 MINS Diagnoses Sepsis A41.9 LLL pneumonia J18.9 Acute bacterial prostatitis N41.0 Type 2 diabetes mellitus E11.9 Hypoxia R09.02 Hypertension I10 Gastroesophageal reflux disease K21.9 BMI 40.0-44.9, adult Z68.41 Hypothyroidism E03.9 Metabolic encephalopathy G93.41 BPH NOS w/o ur obs/LUTS N40.0 Lumbar spinal stenosis M48.061
== END 2021-11-20 14:38 | disposition home or self-care (01) | DRG 871 ==
LOC: ED 11:48 → EDINP 11:48 → SUATTDRO 15:48 → 3N 18:04

== ENCOUNTER 2024-12-29 15:45 | Observation (INO) ==
--- NOTE | 2024-12-29 16:14 | Emergency Department Note ---
Impression & Plan Weakness, Gastroenteritis, Ambulatory dysfunction ED Provider Note Provider: Moris Huff MD CHIEF COMPLAINT: Illness, weakness, nausea vomiting diarrhea HISTORY OF PRESENT ILLNESS: Patient is a 74-year-old gentleman past medical history including type 2 diabetes, and hypertension presenting here via ambulance today. Patient evidently has been weak with nausea vomiting and diarrhea for the last 3 days with poor intake. evidently sick with similar. No recent travel. No abdominal pain or chest pain. No breathing issues reported. Feeling weak and unsteady but has not fallen. Mild headache and diffuse bodyaches. Maybe a little slight congestion and sore throat with some cough. Chronic leg swelling unchanged according the patient. Only able to have a little bit leslie minnie so far today. 1 episode of nonbloody diarrhea today reported by the patient to be quite large. He was weak and generally fatigued. No meds today. PAST MEDICAL HISTORY: As noted above MEDICATIONS: Reviewed home medications SOCIAL HISTORY: PHYSICAL EXAM: GENERAL: alert and oriented in no acute distress on stretcher, mildly fatigued in appearance Head: normocephalic and atraumatic EYES: No injection, discharge or icterus. EOMI. NECK: Trachea midline. ENT: Mucous membranes pink and moist. LUNGS: Airway patent. No retractions. Breath sounds clear HEART: Regular rate and rhythm. No chest wall tenderness ABDOMEN: Soft and non-tender, without guarding or rebound. SKIN: Acyanotic, warm, dry, without rashes EXTREMITIES: Without tenderness with 1-2+ lower extremity edema and some chronic stasis changes right greater than left. NEUROLOGICAL: No focal deficits moves all extremities. No aphasia. No facial droop or slurred speech. EK bpm normal sinus rhythm incomplete right bundle branch block. Some baseline tremor artifact with left anterior fascicular block without clear acute ST segment elevation or depression noted QTc of 420 CONTINUOUS CARDIAC MONITORING: was ordered and showed a heart rate of 80s to 90s bpm in normal sinus rhythm with incomplete right bundle branch block Patient's laboratory studies and imaging reviewed. Differential includes Infection, dehydration, metabolic abnormality, hypo/hyperglycemia, electrolyte disturbance, anemia, hypoxia, cardiac sources, intracerebral event, toxicologic, neurologic, as well as other pathologies. IMPRESSION/MEDICAL DECISION MAKING: Patient here with generalized weakness. Denies severe nausea now. No abdominal pain reported or abdominal tenderness on exam. Has some chronic leg swelling that he states is unchanged. Decrease food and liquid intake reported by the patient. He reports generalized myalgias. Afebrile here and not hypoxic or significantly tachycardic.. Will give some gentle hydration given his decreased intake. Gentle IV fluids of 500 mL given some chronic swelling of his lower legs. No reports concerning for GI bleed of black or bloody stools. Basic labs sent. COVID flu RSV test sent. Chest x-ray will be obtained. Patient does not appear meningitic. Does not appear encephalopathic or altered just generally weak. I doubt CVA. Doubt meningitis. Question viral syndrome lower suspicion for bacterial component. Will send procalcitonin lactate and blood cultures given his age however. Do not see any clear evidence of cellulitis at this time. Given some Tylenol and Zofran here. This did improve his myalgias and nausea. No anemia or significant thrombocytopenia. No leukocytosis. Lactate mildly elevated 2.9. Chest x-ray per radiology questions maybe some slight pulm vascular congestion but no significant effusion or consolidative pneumonia noted. Chemistries without severe electrolyte abnormality. No significant transaminitis. Troponin normal. Procalcitonin not significantly elevated. Negative COVID, flu, RSV test here. Full respiratory viral panel completed and negative as well. No other rashes concerning for Lyme disease and does not have other stigmata of anaplasmosis at this time. Again do question this more of a viral syndrome but given his significant weakness and symptoms, did discuss with him options at this time. He still seems quite weak according to son who later arrives and concerns his ability ambulate and care for himself at home. Given his generalized weakness with potential for falls and illness discussed with the and family options. Discussed staying for further observation given his weakness and if he felt that would be best. Patient and family were in agreement with the plan to stay for observation and the hospitalist was contacted. DIAGNOSIS: Weakness, myalgias, ambulatory dysfunction, gastroenteritis DISPOSITION: Hospitalist will evaluate Patient was agreeable with this plan. 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 Chronic pain syndrome Encounter for pre-operative examination Right leg swelling Right leg pain Hypothyroidism Type 2 diabetes mellitus Diabetes mellitus type 2, uncontrolled Sacroiliitis Low back pain Edema of both legs Chronic osteoarthritis History of DVT (deep vein thrombosis) post-op right foot surgery (2005) Pulmonary hypertension on chest CT, improved with diuresis 12/2021 Chronic venous insufficiency follows w/ C vascular Hypertension controlled, stable per pt Hepatic steatosis Dyslipidemia Medical History LEO (obstructive sleep apnea) Presumed per cardio records Diastolic dysfunction On Lasix per cardio records Seasonal allergies Poor circulation of extremity B/L lower extremities BPH NOS w/o ur obs/LUTS Hypothyroidism Tachycardia remote hx controlled on beta lanre Type 2 diabetes mellitus IDDM Gastroesophageal reflux disease controlled, stable per pt Protrusion of lumbar intervertebral disc L4-5, small lateral right sided Lumbar spinal stenosis Multifactorial multilevel Surgical History S/P epidural steroid injection 02/20/2024-lumbar; Dr Pedro History of arthroscopy of left knee S/P insertion of spinal cord stimulator History of difficult intubation Left SI joint fusion: 12/16/19: Grade view 1, Glidescope#4, ETT 8.0 at [facility] Fusion of lumbosacral spine RIGHT AND LEFT SI joint fusion History of colonoscopy History of elbow surgery RT History of total knee arthroplasty RIGHT H/O foot surgery R&L Family History Mother Gout Hypertension Family history of diabetes mellitus Father Brain tumor Brother Diabetes Congenital deafness Family history of diabetes mellitus Diverticulitis of colon Aunt No problems noted. Other Family history non-contributory Denies family history of Ovarian cancer Prostate cancer Myocardial infarction Lung cancer Stroke Social History Smoking Status: Never smoker Tobacco Type: Smokeless Tobacco (Dip or Chew) Second Hand Exposure: No; Do You Dip or Chew Tobacco: Yes (advised); Hx Alcohol Use: No Hx Substance Use: No Preferred Language: [place] Communication Ability: Effective Visual Impairment: No Limitations Hearing Ability: Normal Film Writer Required: No Beliefs That Will Affect Care: None marital status: Current Living Situation: Spouse and Family current occupational status: retired Feels Safe at Home: Yes Seatbelt Use: always Sunscreen Use: Yes Assistive Devices: Cane, Denture - Upper and Denture - Lower Allergies Allergies Allergy/AdvReac Type Severity Reaction Status Date / Time Penicillins Allergy Mild rash Verified 03/20/24 06:35 codeine AdvReac Intermediate hallucinati Verified 03/20/24 06:35 ons metformin AdvReac Intermediate diarrhea Verified 03/20/24 06:35 oxycodone AdvReac Intermediate hallucinati Verified 03/20/24 06:35 ons lisinopril AdvReac Mild cough Verified 03/20/24 06:35 olmesartan AdvReac Mild cough Verified 03/20/24 06:35 Home Meds Home Medications Medication Instructions Recorded Confirmed aspirin 81 mg tablet,delayed 81 mg PO QAM 08/28/18 12/29/24 release (Adult Aspirin Regimen) multivitamin 1 tab PO QAM 03/15/21 12/29/24 potassium 99 mg tablet 99 mg PO QAM 11/28/21 12/29/24 losartan 50 mg tablet 50 mg PO QAM 07/04/22 12/29/24 furosemide 20 mg tablet 40 mg PO QAM 04/02/23 12/29/24 Previous Rx's Medication Instructions Recorded pen needle, diabetic 31 gauge x #100 ea 12/25/2311/29" (CareFine Pen Needle) hydrocodone 5 mg-acetaminophen 325 1 tab PO Q6H PRN pain #20 tabs 03/20/24 mg tablet tramadol 50 mg tablet 50 mg PO Q6H PRN pain, moderate 03/20/24 #20 tabs glimepiride 1 mg tablet 1 mg PO BID #180 tabs 04/04/24 carvedilol 6.25 mg tablet See Rx Instructions .Route 04/18/24 .COMPLEX #180 tabs atorvastatin 10 mg tablet (Lipitor) 10 mg PO QAM #90 tabs 05/19/24 levothyroxine 50 mcg tablet See Rx Instructions .Route 06/02/24 .COMPLEX #90 tabs insulin glargine 100 unit/mL (3 48 unit (0.48 mL) subcut QPM #45 mL 12/04/24 mL) subcutaneous pen (Lantus Solostar U-100 Insulin) OneTouch Ultra Test (blood sugar #100 ea 12/24/24 diagnostic) Results & Data (ED) Vital Signs Vital Signs - 24 hr 12/29/24 15:52 02/03/25 16:03 12/29/24 16:25 Temperature 37.1 C Temperature Source Oral Pulse Rate 96 H 98 H Pulse Rate [Apical] Respiratory Rate 20 Respiratory Effort / Characteristics Non-Labored Respiratory Depth Normal Blood Pressure 145/88 H Blood Pressure [Left Arm] Blood Pressure Mean 107 Blood Pressure Mean [Left Arm] Pulse Oximetry 93 94 Oxygen Delivery Method Room Air Room Air Sepsis Recent Fever Within 48 Hours No Sepsis New/Unexplained Change in Mental Status No Sepsis Action Taken by Nursing No Action Required 12/29/24 19:45 Temperature Temperature Source Pulse Rate Pulse Rate [Apical] 83 Respiratory Rate 18 Respiratory Effort / Characteristics Respiratory Depth Blood Pressure Blood Pressure [Left Arm] 140/78 Blood Pressure Mean Blood Pressure Mean [Left Arm] 98 Pulse Oximetry 95 Oxygen Delivery Method Room Air Sepsis Recent Fever Within 48 Hours Sepsis New/Unexplained Change in Mental Status Sepsis Action Taken by Nursing Laboratory Data 12/29/24 16:10 12/29/24 16:10 Lab Results 12/29/24 12/29/24 12/29/24 Range/Units 16:00 16:00 16:00 WBC (4.8-10.8) K/ul RBC (4.70-6.10) M/uL Hgb (14.0-18.0) g/dl Hct (42.0-52.0) % MCV (80.0-100.0) fL MCH (25.0-34.0) pg MCHC (32.0-36.0) g/dL RDW Std Deviation (36.4-46.3) fL RDW Coeff of Ro (11.5-14.5) % Plt Count (130-400) K/uL MPV (9.4-12.4) fL Immature Gran % (Auto) % Neut % (Auto) % Lymph % (Auto) % [place] % (Auto) % Eos % (Auto) % Baso % (Auto) % Neut # (Auto) (1.40-6.50) K/uL Lymph # (Auto) (1.20-3.40) K/uL [place] # (Auto) (0.11-0.59) K/uL Eos # (Auto) (0.00-0.50) K/uL Baso # (Auto) (0.00-0.20) K/uL Immature Gran # (Auto) (0.01-0.20) K/uL Sodium (136-145) mmol/L Potassium (3.5-5.1) mmol/L Chloride (98-107) mmol/L Carbon Dioxide (21-32) mmol/L Anion Gap (3-11) BUN (6-23) mg/dl Creatinine (0.6-1.4) mg/dl Est Cr Clr Drug Dosing ml/min eGFR BUN/Creatinine Ratio (10-20) Glucose (70-99(Fasting)) mg/dl Lactate (0.4-2.0) mmol/L Calcium (8.6-10.3) mg/dl Magnesium (1.7-2.4) mg/dl Total Bilirubin (0.2-1.0) mg/dl AST (13-39) U/L ALT (7-52) U/L Alkaline Phosphatase (34-104) U/L Troponin I High Sens (0-20) pg/ml Total Protein (6.0-8.3) gm/dl Albumin (3.4-5.0) gm/dl Globulin (2.5-4.0) gm/dl Albumin/Globulin Ratio (0.9-2) Procalcitonin (0-0.5) ng/ml TSH (0.300-4.500) uIu/ml Adenovirus (PCR) Not Detected (NotDetected) B. pertussis DNA (PCR) Not Detected (NotDetected) B.parapertussis DNA PCR Not Detected (NotDetected) C. pneumoniae DNA (PCR) Not Detected (NotDetected) Coronavirus OC43 (PCR) Not Detected (NotDetected) Coronavirus HKU1 (PCR) Not Detected (NotDetected) Coronavirus 229E (PCR) Not Detected (NotDetected) SARS-CoV-2 (PCR) NEGATIVE Not Detected (Negative) Coronavirus NL63 (PCR) Not Detected (NotDetected) Human Metapneumovir PCR Not Detected (NotDetected) Influenza Type A (PCR) Negative Not Detected (Neg) Influenza Type B (PCR) Negative (Neg) M. pneumoniae (PCR) (NotDetected) Parainfluenza 1 (PCR) (NotDetected) Parainfluenza 2 (PCR) (NotDetected) Parainfluenza 3 (PCR) (NotDetected) Parainfluenza 4 (PCR) (NotDetected) RSV (RT-PCR) (Neg) RSV (PCR) (NotDetected) Entero/Rhino (PCR) (NotDetected) 12/29/24 12/29/24 12/29/24 Range/Units 16:00 16:06 16:10 WBC 7.91 (4.8-10.8) K/ul RBC 6.26 H (4.70-6.10) M/uL Hgb 16.7 (14.0-18.0) g/dl Hct 51.0 (42.0-52.0) % MCV 81.5 (80.0-100.0) fL MCH 26.7 (25.0-34.0) pg MCHC 32.7 (32.0-36.0) g/dL RDW Std Deviation 46.9 H (36.4-46.3) fL RDW Coeff of Ro 17.2 H (11.5-14.5) % Plt Count 179 (130-400) K/uL MPV 9.6 (9.4-12.4) fL Immature Gran % (Auto) 1.9 % Neut % (Auto) 89.2 % Lymph % (Auto) 5.7 % [place] % (Auto) 3.0 % Eos % (Auto) 0.1 % Baso % (Auto) 0.1 % Neut # (Auto) 7.05 H (1.40-6.50) K/uL Lymph # (Auto) 0.45 L (1.20-3.40) K/uL [place] # (Auto) 0.24 (0.11-0.59) K/uL Eos # (Auto) 0.01 (0.00-0.50) K/uL Baso # (Auto) 0.01 (0.00-0.20) K/uL Immature Gran # (Auto) 0.15 (0.01-0.20) K/uL Sodium 135 L (136-145) mmol/L Potassium 4.2 (3.5-5.1) mmol/L Chloride 98 (98-107) mmol/L Carbon Dioxide 28 (21-32) mmol/L Anion Gap 9 (3-11) BUN 21 (6-23) mg/dl Creatinine 1.24 (0.6-1.4) mg/dl Est Cr Clr Drug Dosing 72.6 ml/min eGFR 61.39 BUN/Creatinine Ratio 16.9 (10-20) Glucose 289 H (70-99(Fasting)) mg/dl Lactate 2.9 H* (0.4-2.0) mmol/L Calcium 9.4 (8.6-10.3) mg/dl Magnesium 1.7 (1.7-2.4) mg/dl Total Bilirubin 0.9 (0.2-1.0) mg/dl AST 31 (13-39) U/L ALT 32 (7-52) U/L Alkaline Phosphatase 86 (34-104) U/L Troponin I High Sens 10.9 (0-20) pg/ml Total Protein 7.6 (6.0-8.3) gm/dl Albumin 4.4 (3.4-5.0) gm/dl Globulin 3.2 (2.5-4.0) gm/dl Albumin/Globulin Ratio 1.4 (0.9-2) Procalcitonin 0.30 (0-0.5) ng/ml TSH 3.580 (0.300-4.500) uIu/ml Adenovirus (PCR) (NotDetected) B. pertussis DNA (PCR) (NotDetected) B.parapertussis DNA PCR (NotDetected) C. pneumoniae DNA (PCR) (NotDetected) Coronavirus OC43 (PCR) (NotDetected) Coronavirus HKU1 (PCR) (NotDetected) Coronavirus 229E (PCR) (NotDetected) SARS-CoV-2 (PCR) (Negative) Coronavirus NL63 (PCR) (NotDetected) Human Metapneumovir PCR (NotDetected) Influenza Type A (PCR) (Neg) Influenza Type B (PCR) Not Detected (Neg) M. pneumoniae (PCR) Not Detected (NotDetected) Parainfluenza 1 (PCR) Not Detected (NotDetected) Parainfluenza 2 (PCR) Not Detected (NotDetected) Parainfluenza 3 (PCR) Not Detected (NotDetected) Parainfluenza 4 (PCR) Not Detected (NotDetected) RSV (RT-PCR) Negative (Neg) RSV (PCR) Not Detected (NotDetected) Entero/Rhino (PCR) Not Detected (NotDetected) 12/29/24 Range/Units 18:00 WBC (4.8-10.8) K/ul RBC (4.70-6.10) M/uL Hgb (14.0-18.0) g/dl Hct (42.0-52.0) % MCV (80.0-100.0) fL MCH (25.0-34.0) pg MCHC (32.0-36.0) g/dL RDW Std Deviation (36.4-46.3) fL RDW Coeff of Ro (11.5-14.5) % Plt Count (130-400) K/uL MPV (9.4-12.4) fL Immature Gran % (Auto) % Neut % (Auto) % Lymph % (Auto) % [place] % (Auto) % Eos % (Auto) % Baso % (Auto) % Neut # (Auto) (1.40-6.50) K/uL Lymph # (Auto) (1.20-3.40) K/uL [place] # (Auto) (0.11-0.59) K/uL Eos # (Auto) (0.00-0.50) K/uL Baso # (Auto) (0.00-0.20) K/uL Immature Gran # (Auto) (0.01-0.20) K/uL Sodium (136-145) mmol/L Potassium (3.5-5.1) mmol/L Chloride (98-107) mmol/L Carbon Dioxide (21-32) mmol/L Anion Gap (3-11) BUN (6-23) mg/dl Creatinine (0.6-1.4) mg/dl Est Cr Clr Drug Dosing ml/min eGFR BUN/Creatinine Ratio (10-20) Glucose (70-99(Fasting)) mg/dl Lactate 2.5 H* (0.4-2.0) mmol/L Calcium (8.6-10.3) mg/dl Magnesium (1.7-2.4) mg/dl Total Bilirubin (0.2-1.0) mg/dl AST (13-39) U/L ALT (7-52) U/L Alkaline Phosphatase (34-104) U/L Troponin I High Sens (0-20) pg/ml Total Protein (6.0-8.3) gm/dl Albumin (3.4-5.0) gm/dl Globulin (2.5-4.0) gm/dl Albumin/Globulin Ratio (0.9-2) Procalcitonin (0-0.5) ng/ml TSH (0.300-4.500) uIu/ml Adenovirus (PCR) (NotDetected) B. pertussis DNA (PCR) (NotDetected) B.parapertussis DNA PCR (NotDetected) C. pneumoniae DNA (PCR) (NotDetected) Coronavirus OC43 (PCR) (NotDetected) Coronavirus HKU1 (PCR) (NotDetected) Coronavirus 229E (PCR) (NotDetected) SARS-CoV-2 (PCR) (Negative) Coronavirus NL63 (PCR) (NotDetected) Human Metapneumovir PCR (NotDetected) Influenza Type A (PCR) (Neg) Influenza Type B (PCR) (Neg) M. pneumoniae (PCR) (NotDetected) Parainfluenza 1 (PCR) (NotDetected) Parainfluenza 2 (PCR) (NotDetected) Parainfluenza 3 (PCR) (NotDetected) Parainfluenza 4 (PCR) (NotDetected) RSV (RT-PCR) (Neg) RSV (PCR) (NotDetected) Entero/Rhino (PCR) (NotDetected) Administered Medications Discontinued Medications Acetaminophen (Acetaminophen 500 Mg Tab) 1,000 mg PO NOW STA Stop: 12/29/24 16:11 Last Admin: 12/29/24 16:23 Dose: 1,000 mg Documented By: OLIVERIO Sodium Chloride (Nss) 500 mls @ 999 mls/hr IV .Q31M ONE Stop: 12/29/24 16:40 Last Infusion: 12/29/24 17:03 Dose: Infused Documented By: Admin: 12/29/24 16:22 Dose: 999 mls/hr Documented By: OLIVERIO Ondansetron HCl (Ondansetron Inj 2 Mg/Ml 2 Ml Vial) 4 mg IV NOW STA Stop: 12/29/24 16:11 Last Admin: 12/29/24 16:23 Dose: 4 mg Documented By: HB Imaging Data Radiologist's Impression: Chest X-Ray 12/29/24 16:01 INDICATION: Cough. TECHNIQUE: Frontal radiograph of the chest. COMPARISON: None available. FINDINGS: Cardiomegaly. Mild pulmonary vascular congestion. Low inspiratory depth. Subsegmental atelectasis in the lung bases. No infiltrate, pleural effusion or pneumothorax. No acute osseous abnormality evident. IMPRESSION: Mild pulmonary vascular congestion. Electronically signed by Eric Penn 12-29-2024 4:34 PM Discharge Plan Visit Data Chief Complaint: Illness ED Provider: Moris Huff Discharge Problem: Weakness, Gastroenteritis, Ambulatory dysfunction Patient Disposition: Being Evaluated by Hospitalist Forms Stand Alone Forms: [facility] Prescriptions Prescriptions: No Action aspirin [Adult Aspirin Regimen] 81 mg tablet,delayed release (DR/EC) 81 mg PO QAM carvedilol 6.25 mg tablet See Rx Instructions .ROUTE .COMPLEX Qty: 180 3RF Dose Instruction: Take 1 tablet by mouth twice daily with food Rx Instructions: Take 1 tablet by mouth twice daily with food atorvastatin [Lipitor] 10 mg tablet 10 mg PO QAM Qty: 90 3RF levothyroxine 50 mcg tablet See Rx Instructions .ROUTE .COMPLEX Qty: 90 2RF Dose Instruction: Take 1 tablet by mouth once daily Rx Instructions: Take 1 tablet by mouth once daily furosemide 20 mg tablet 40 mg PO QAM (DME) pen needle, diabetic [CareFine Pen Needle] 31 gauge x 1/4" needle See Rx Instructions .Route Qty: 100 1RF Rx Instructions: use daily multivitamin Tablet 1 tab PO QAM losartan 50 mg tablet 50 mg PO QAM potassium 99 mg tablet 99 mg PO QAM glimepiride 1 mg tablet 1 mg PO BID Qty: 180 3RF Rx Instructions: administer with breakfast and supper (DME) OneTouch Ultra Test Strip See Rx Instructions .Route Qty: 100 5RF Rx Instructions: Test blood sugar two times a day; E11.65 insulin glargine [Lantus Solostar U-100 Insulin] 100 unit/mL (3 mL) insulin pen 48 unit subcut QPM MDD 70 Qty: 45 2RF hydrocodone-acetaminophen 5-325 mg tablet 1 tab PO Q6H PRN (Reason: pain) Qty: 20 0RF tramadol 50 mg tablet 50 mg PO Q6H PRN (Reason: pain, moderate) Qty: 20 0RF Referrals Referrals: Marlene Haines PA-C [Primary Care Provider] -
[2024-12-29] MEDS: SODIUM CHLORIDE 0.9% 500 ML IV ONE (16:22)
[2024-12-29] MEDS: ACETAMINOPHEN 500 MG TAB PO STA (16:23)
[2024-12-29] MEDS: ONDANSETRON INJ 2 MG/ML 2 ML VIAL IV STA (16:23)
[2024-12-29 16:30] LABS: Basophils # (auto) 0.01 K/uL (0.00-0.20); Basophils % (auto) 0.1 %; Eosinophils # (auto) 0.01 K/uL (0.00-0.50); Eosinophils % (auto) 0.1 %; Hemoglobin 16.7 g/dl (14.0-18.0); Immature Granulocytes # (auto) 0.15 K/uL (0.01-0.20); Immature Granulocytes % (auto) 1.9 %; Lymphocytes # (auto) 0.45 K/uL (1.20-3.40); Lymphocytes % (auto) 5.7 %; Mean Corpuscular Hemoglobin 26.7 pg (25.0-34.0); Mean Corpuscular Hgb Conc 32.7 g/dL (32.0-36.0); Mean Corpuscular Volume 81.5 fL (80.0-100.0); Mean Platelet Volume 9.6 fL (9.4-12.4); Monocytes # (auto) 0.24 K/uL (0.11-0.59); Neutrophils # (auto) 7.05 K/uL (1.40-6.50); Neutrophils % (auto) 89.2 %; Platelet Count 179 K/uL (130-400); RDW Coefficient of Variation 17.2 % (11.5-14.5); RDW Standard Deviation 46.9 fL (36.4-46.3); Red Blood Count 6.26 M/uL (4.70-6.10); White Blood Count 7.91 K/ul (4.8-10.8)
--- NOTE | 2024-12-29 16:35 | XRay Report ---
INDICATION: Cough. TECHNIQUE: Frontal radiograph of the chest. COMPARISON: None available. FINDINGS: Cardiomegaly. Mild pulmonary vascular congestion. Low inspiratory depth. Subsegmental atelectasis in the lung bases. No infiltrate, pleural effusion or pneumothorax. No acute osseous abnormality evident. IMPRESSION: Mild pulmonary vascular congestion. Electronically signed by Eric Penn 12-29-2024 4:34 PM
[2024-12-29 16:44] LABS: Albumin Level 4.4 gm/dl (3.4-5.0); Bilirubin,Total 0.9 mg/dl (0.2-1.0); Calcium 9.4 mg/dl (8.6-10.3); Magnesium 1.7 mg/dl (1.7-2.4); Potassium 4.2 mmol/L (3.5-5.1)
[2024-12-29 16:50] LABS: Albumin Globulin Ratio 1.4 (0.9-2); BUN Creatinine Ratio 16.9 (10-20); Creatinine Clr Calc Pharmacy 72.6 ml/min; Globulin 3.2 gm/dl (2.5-4.0); Total Protein 7.6 gm/dl (6.0-8.3)
[2024-12-29 16:53] LABS: Influenza A virus by PCR Negative (Neg); Influenza B virus by PCR Negative (Neg); RSV by PCR Negative (Neg); SARS CoV2 RNA(COVID-19) Ceph NEGATIVE (Negative)
[2024-12-29 16:54] LABS: Troponin I High Sensitivity 10.9 pg/ml (0-20)
[2024-12-29 17:01] LABS: Thyroid Stimulating Hormone 3.58 uIu/ml (0.300-4.500)
--- NOTE | 2024-12-29 17:31 | Electrocardiogram Report ---
Test Reason : Blood Pressure : */* mmHG Vent. Rate : 99 BPM Atrial Rate : 99 BPM P-R Int : 168 ms QRS Dur : 94 ms QT Int : 328 ms P-R-T Axes : 41 -60 56 degrees QTcB Int : 420 ms Normal sinus rhythm Incomplete right bundle branch block Left anterior fascicular block Minimal voltage criteria for LVH, may be normal variant ( R in aVL ) Abnormal ECG When compared with ECG of 17-Nov-2021 11:58, Incomplete right bundle branch block is now Present Confirmed by Nicolas Gandhi ([id number]) on 12/29/2024 5:31:06 PM Referred By: Confirmed By: Nicolas Gandhi
[2024-12-29 20:08] LABS: Adenovirus PCR Not Detected (NotDetected); Bordetella parapertussis PCR Not Detected (NotDetected); Bordetella pertussis PCR Not Detected (NotDetected); Chlamydia pneumoniae PCR Not Detected (NotDetected); Coronavirus 229E PCR Not Detected (NotDetected); Coronavirus CoV-2 (COVID19)PCR Not Detected (NotDetected); Coronavirus HKU1 PCR Not Detected (NotDetected); Coronavirus NL63 PCR Not Detected (NotDetected); Coronavirus OC43PCR Not Detected (NotDetected); Human Metapneumovirus PCR Not Detected (NotDetected); Influenza A PCR Not Detected (NotDetected); Influenza B PCR Not Detected (NotDetected); Mycoplasma pneumoniae PCR Not Detected (NotDetected); Parainfluenza Virus 1 PCR Not Detected (NotDetected); Parainfluenza Virus 2 PCR Not Detected (NotDetected); Parainfluenza Virus 3 PCR Not Detected (NotDetected); Parainfluenza Virus 4 PCR Not Detected (NotDetected); Respiratory Syncytial VirusPCR Not Detected (NotDetected); Rhinovirus/Enterovirus PCR Not Detected (NotDetected)
--- NOTE | 2024-12-29 20:46 | History & Physical Report ---
Date of Service December 29, 2024 Assessment & Plan (1) Nausea vomiting and diarrhea: Plan: 74yo male with history of DM, HTN, HLP presenting with three days of nausea/vomiting and diarrhea. Patient denies recent antibiotic use or recent intake of any improperly cooked or handled food. He does have family members with similar symptoms. Vital signs are stable with no hypotension or tachycardia. Abdomen is non-tender. Renal function, electrolytes and other lab findings are fairly normal. Suspect viral gastroenteritis. -Observation to medical -Will order stool PCR - patient reports his last episode of diarrhea was yesterday 12/28/24 -Continue gentle hydration - LR at 80mL/hr x 1L -Encourage PO intake as tolerated -Zofran PRN -Tylenol PRN -PT/OT evaluation for reported weakness (2) Type 2 diabetes mellitus: Plan: Elevated blood qmnew=468 today. Patient reports he hasn't taken his medications for several days. He is on Glimepiride as well as Insulin -Hold Glimepiride -Lantus 24u BID - first dose now -Check HgbA1C with AM labs (3) Hypothyroidism: Plan: Chronic. -Continue Synthroid 50mcg po daily (4) Hypertension: Plan: Chronic. Blood pressure stable -Continue Carvedilol 6.25mg po BID - first dose tomorrow AM 0900 -Continue Losartan -Continue to hold Lasix (5) Dyslipidemia: Plan: Chronic -Continue Atorvastatin 10mg po daily Admission and Anticipated Discharge Date Admission Date: F/E/N - NSS at 80mL/hr x 1L, Mg x 2gm, CC diet as tolerated Ppx - Low risk for DVT, SCDs Code - Full Dispo - Observation to medical History of Present Illness Chief Complaint: nausea, vomiting, diarrhea Primary Care Provider: Marlene Haines PA-C Omega Chawla is a pleasant 74yo male with history of DM on insulin, HTN, HLP, GERD and Hypothyroidism presenting with three days of nausea/vomiting/diarrhea. Patient reports multiple episodes of non-bloody/non-mucoid diarrhea ongoing since 12/27/24 as well as multiple episodes of non-bloody/non-bilious emesis. Patient has not been able to tolerate PO intake or take any medications for the last several days. He has felt very weak and fatigued as well. Otherwise he denies chest pain, cough, SOB, abdominal pain, urinary complaints. No additional complaints at this time. ER Course: NSS x 500mL Zofran 4mg IV Tylenol 1gm PO Allergies Allergy/AdvReac Type Severity Reaction Status Date / Time Penicillins Allergy Mild rash Verified 03/20/24 06:35 codeine AdvReac Intermediate hallucinati Verified 03/20/24 06:35 ons metformin AdvReac Intermediate diarrhea Verified 03/20/24 06:35 oxycodone AdvReac Intermediate hallucinati Verified 03/20/24 06:35 ons lisinopril AdvReac Mild cough Verified 03/20/24 06:35 olmesartan AdvReac Mild cough Verified 03/20/24 06:35 Home Medications Medication Instructions Recorded Confirmed Type aspirin 81 mg tablet,delayed 81 mg PO QAM 08/28/18 12/29/24 History release (Adult Aspirin Regimen) multivitamin 1 tab PO QAM 03/15/21 12/29/24 History potassium 99 mg tablet 99 mg PO QAM 11/28/21 12/29/24 History losartan 50 mg tablet 50 mg PO QAM 07/04/22 12/29/24 History furosemide 20 mg tablet 40 mg PO QAM 04/02/23 12/29/24 History pen needle, diabetic 31 gauge x #100 ea 12/25/23 01/14/24 Rx 1/4" (CareFine Pen Needle) hydrocodone 5 mg-acetaminophen 325 1 tab PO Q6H PRN pain #20 tabs 03/20/24 12/29/24 Rx mg tablet tramadol 50 mg tablet 50 mg PO Q6H PRN pain, moderate 03/20/24 12/29/24 Rx #20 tabs glimepiride 1 mg tablet 1 mg PO BID #180 tabs 04/04/24 12/29/24 Rx carvedilol 6.25 mg tablet See Rx Instructions .Route 04/18/24 12/29/24 Rx .COMPLEX #180 tabs atorvastatin 10 mg tablet (Lipitor) 10 mg PO QAM #90 tabs 05/19/24 12/29/24 Rx levothyroxine 50 mcg tablet See Rx Instructions .Route 06/02/24 12/29/24 Rx .COMPLEX #90 tabs insulin glargine 100 unit/mL (3 48 unit (0.48 mL) subcut QPM #45 mL 12/04/24 12/29/24 Rx mL) subcutaneous pen (Lantus Solostar U-100 Insulin) OneTouch Ultra Test (blood sugar #100 ea 12/24/24 12/24/24 Rx diagnostic) Past Med/Surg History Problem List (Updated 12/29/24 @ 20:55 by Luci Velez DO) Nausea vomiting and diarrhea 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 Chronic pain syndrome Encounter for pre-operative examination Right leg swelling Right leg pain Hypothyroidism Type 2 diabetes mellitus Diabetes mellitus type 2, uncontrolled Sacroiliitis Low back pain Edema of both legs Chronic osteoarthritis History of DVT (deep vein thrombosis) post-op right foot surgery (2005) Pulmonary hypertension on chest CT, improved with diuresis 12/2021 Chronic venous insufficiency follows w/ [facility] vascular Hypertension controlled, stable per pt Hepatic steatosis Dyslipidemia Medical History LEO (obstructive sleep apnea) Presumed per cardio records Diastolic dysfunction On Lasix per cardio records Seasonal allergies Poor circulation of extremity B/L lower extremities BPH NOS w/o ur obs/LUTS Hypothyroidism Tachycardia remote hx controlled on beta lanre Type 2 diabetes mellitus IDDM Gastroesophageal reflux disease controlled, stable per pt Protrusion of lumbar intervertebral disc L4-5, small lateral right sided Lumbar spinal stenosis Multifactorial multilevel Surgical History S/P epidural steroid injection 02/20/2024-lumbar; Dr Pedro History of arthroscopy of left knee S/P insertion of spinal cord stimulator History of difficult intubation Left SI joint fusion: 12/16/19: Grade view 1, Glidescope#4, ETT 8.0 at [facility] Fusion of lumbosacral spine RIGHT AND LEFT SI joint fusion History of colonoscopy History of elbow surgery RT History of total knee arthroplasty RIGHT H/O foot surgery R&L Family History Mother Gout Hypertension Family history of diabetes mellitus Father Brain tumor Brother Diabetes Congenital deafness Family history of diabetes mellitus Diverticulitis of colon Aunt No problems noted. 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 Beliefs That Will Affect Care: None marital status: Current Living Situation: Spouse and Family current occupational status: retired Feels Safe at Home: Yes Seatbelt Use: always Sunscreen Use: Yes Assistive Devices: Cane, Denture - Upper and Denture - Lower Review of Systems Review of Systems: All systems reviewed & are unremarkable except as noted in HPI & below Physical Exam Physical Exam: General: patient resting comfortably, NAD, non-toxic in appearance, AA&O x 4 Skin: warm, dry, intact, no rashes or lesions HEENT: NC/AT, PERRL, EOMI, anicteric sclera, conjunctiva without injection, external ear normal to inspection and nontender, nares patent, slightly dry mucus membranes, dentition intact, no oropharyngeal lesions, neck supple, trachea midline, no LAD, no thyromegaly, no JVD Heart: +S1/S2, regular, no m/r/g Lungs: equal air entry bilaterally, no rales/rhonchi/wheezes Abd: +BS, soft, NT/ND, no masses/organomegaly/ascites Ext: warm, 2+ pulses in UE/LE bilaterally, no clubbing/cyanosis or edema Neuro: nonfocal, patient AA&O x 4, speech intact, no facial droop, moving all extremities on command with equal strength 5/5 Results & Data Results & Data Vital Signs (Past 12 Hours) Vital Signs Temp Pulse Pulse Resp BP BP Pulse Ox 12/29/24 19:45 83 18 140/78 95 12/29/24 16:25 98 H 12/29/24 16:03 94 12/29/24 15:52 37.1 C 96 H 20 145/88 H 93 O2 Del Method 12/29/24 19:45 Room Air 12/29/24 16:25 12/29/24 16:03 Room Air 12/29/24 15:52 Room Air Laboratory Results Laboratory Results WBC 7.91 K/ul (4.8-10.8) 12/29/24 16:10 RBC 6.26 M/uL (4.70-6.10) H 12/29/24 16:10 Hgb 16.7 g/dl (14.0-18.0) 12/29/24 16:10 Hct 51.0 % (42.0-52.0) 12/29/24 16:10 MCV 81.5 fL (80.0-100.0) 12/29/24 16:10 MCH 26.7 pg (25.0-34.0) 12/29/24 16:10 MCHC 32.7 g/dL (32.0-36.0) 12/29/24 16:10 RDW Std Deviation 46.9 fL (36.4-46.3) H 12/29/24 16:10 RDW Coeff of Ro 17.2 % (11.5-14.5) H 12/29/24 16:10 Plt Count 179 K/uL (130-400) 12/29/24 16:10 MPV 9.6 fL (9.4-12.4) 12/29/24 16:10 Immature Gran % (Auto) 1.9 % 12/29/24 16:10 Neut % (Auto) 89.2 % 12/29/24 16:10 Lymph % (Auto) 5.7 % 12/29/24 16:10 [place] % (Auto) 3.0 % 12/29/24 16:10 Eos % (Auto) 0.1 % 12/29/24 16:10 Baso % (Auto) 0.1 % 12/29/24 16:10 Neut # (Auto) 7.05 K/uL (1.40-6.50) H 12/29/24 16:10 Lymph # (Auto) 0.45 K/uL (1.20-3.40) L 12/29/24 16:10 [place] # (Auto) 0.24 K/uL (0.11-0.59) 12/29/24 16:10 Eos # (Auto) 0.01 K/uL (0.00-0.50) 12/29/24 16:10 Baso # (Auto) 0.01 K/uL (0.00-0.20) 12/29/24 16:10 Immature Gran # (Auto) 0.15 K/uL (0.01-0.20) 12/29/24 16:10 Sodium 135 mmol/L (136-145) L 12/29/24 16:10 Potassium 4.2 mmol/L (3.5-5.1) 12/29/24 16:10 Chloride 98 mmol/L (98-107) 12/29/24 16:10 Carbon Dioxide 28 mmol/L (21-32) 12/29/24 16:10 Anion Gap 9 (3-11) 12/29/24 16:10 BUN 21 mg/dl (6-23) 12/29/24 16:10 Creatinine 1.24 mg/dl (0.6-1.4) 12/29/24 16:10 Est Cr Clr Drug Dosing 72.6 ml/min 12/29/24 16:10 eGFR 61.39 12/29/24 16:10 BUN/Creatinine Ratio 16.9 (10-20) 12/29/24 16:10 Glucose 289 mg/dl (70-99(Fasting)) H 12/29/24 16:10 Lactate 2.5 mmol/L (0.4-2.0) H* 12/29/24 18:00 Calcium 9.4 mg/dl (8.6-10.3) 12/29/24 16:10 Magnesium 1.7 mg/dl (1.7-2.4) 12/29/24 16:10 Total Bilirubin 0.9 mg/dl (0.2-1.0) 12/29/24 16:10 AST 31 U/L (13-39) 12/29/24 16:10 ALT 32 U/L (7-52) 12/29/24 16:10 Alkaline Phosphatase 86 U/L (34-104) 12/29/24 16:10 Troponin I High Sens 10.9 pg/ml (0-20) 12/29/24 16:10 Total Protein 7.6 gm/dl (6.0-8.3) 12/29/24 16:10 Albumin 4.4 gm/dl (3.4-5.0) 12/29/24 16:10 Globulin 3.2 gm/dl (2.5-4.0) 12/29/24 16:10 Albumin/Globulin Ratio 1.4 (0.9-2) 12/29/24 16:10 Procalcitonin 0.30 ng/ml (0-0.5) 12/29/24 16:10 TSH 3.580 uIu/ml (0.300-4.500) 12/29/24 16:10 Adenovirus (PCR) Not Detected (NotDetected) 12/29/24 16:00 B. pertussis DNA (PCR) Not Detected (NotDetected) 12/29/24 16:00 B.parapertussis DNA PCR Not Detected (NotDetected) 12/29/24 16:00 C. pneumoniae DNA (PCR) Not Detected (NotDetected) 12/29/24 16:00 Coronavirus OC43 (PCR) Not Detected (NotDetected) 12/29/24 16:00 Coronavirus HKU1 (PCR) Not Detected (NotDetected) 12/29/24 16:00 Coronavirus 229E (PCR) Not Detected (NotDetected) 12/29/24 16:00 SARS-CoV-2 (PCR) NEGATIVE (Negative) 12/29/24 16:00 SARS-CoV-2 (PCR) Not Detected (NotDetected) 12/29/24 16:00 Coronavirus NL63 (PCR) Not Detected (NotDetected) 12/29/24 16:00 Human Metapneumovir PCR Not Detected (NotDetected) 12/29/24 16:00 Influenza Type A (PCR) Negative (Neg) 12/29/24 16:00 Influenza Type A (PCR) Not Detected (NotDetected) 12/29/24 16:00 Influenza Type B (PCR) Negative (Neg) 12/29/24 16:00 Influenza Type B (PCR) Not Detected (NotDetected) 12/29/24 16:00 M. pneumoniae (PCR) Not Detected (NotDetected) 12/29/24 16:00 Parainfluenza 1 (PCR) Not Detected (NotDetected) 12/29/24 16:00 Parainfluenza 2 (PCR) Not Detected (NotDetected) 12/29/24 16:00 Parainfluenza 3 (PCR) Not Detected (NotDetected) 12/29/24 16:00 Parainfluenza 4 (PCR) Not Detected (NotDetected) 12/29/24 16:00 RSV (RT-PCR) Negative (Neg) 12/29/24 16:00 RSV (PCR) Not Detected (NotDetected) 12/29/24 16:00 Entero/Rhino (PCR) Not Detected (NotDetected) 12/29/24 16:00 Impressions Chest X-Ray 12/29/24 16:01 INDICATION: Cough. TECHNIQUE: Frontal radiograph of the chest. COMPARISON: None available. FINDINGS: Cardiomegaly. Mild pulmonary vascular congestion. Low inspiratory depth. Subsegmental atelectasis in the lung bases. No infiltrate, pleural effusion or pneumothorax. No acute osseous abnormality evident. IMPRESSION: Mild pulmonary vascular congestion. Electronically signed by Eric Penn 12-29-2024 4:34 PM PG Care Time/CCT Total # of Minutes Spent Total Time Spent with Patient: Total time spent is greater than 50% in coordination of care (as documented) at patient's floor/unit and/or counseling patient: Coding Level of Care Code 57439 INT INP/OBS CARE 3/75MIN Diagnoses Nausea vomiting and diarrhea R11.2; R19.7 Type 2 diabetes mellitus E11.9 Hypothyroidism E03.9 Hypertension I10 Dyslipidemia E78.5
[2024-12-30] MEDS ORDERED: ONDANSETRON INJ 2 MG/ML 2 ML VIAL IV PRN (00:45)
[2024-12-30] MEDS ORDERED: CARBOHYDRATES FOR HYPOGLYCEMIA PO PRN (00:45)
[2024-12-30] MEDS ORDERED: ACETAMINOPHEN 325 MG TAB PO PRN (00:45)
[2024-12-30] MEDS ORDERED: GLUCOSE 10 TAB/TUBE PO PRN (00:45)
[2024-12-30] MEDS ORDERED: GLUCAGON FOR INJ 1 MG VIAL SQ PRN (00:45)
[2024-12-30] MEDS ORDERED: DEXTROSE 50% 50 ML SYRINGE IV PRN (00:45)
[2024-12-30] MEDS ORDERED: GLUCOSE 40% GEL 15 GM TUBE PO PRN (00:45)
[2024-12-30] MEDS: LANTUS PER UNIT CHARGE SQ SCH (00:58)
[2024-12-30] MEDS: INSULIN ASPART PER UNIT CHARGE SC SCH (00:59)
[2024-12-30] MEDS: HYDROCODONE/ACETAMOPHEN 5/325MG TAB PO PRN (00:59)
[2024-12-30] MEDS: MAGNESIUM SULFATE / D5W 1 GM/100 ML BAG IV SCH (01:00)
[2024-12-30] MEDS: SODIUM CHLORIDE 0.9% 1,000 ML IV SCH (01:00)
[2024-12-30] MEDS: LEVOTHYROXINE SODIUM 50 MCG TABLET PO SCH (06:17)
[2024-12-30 07:32] LABS: Anion Gap 4 (3-11); BUN Creatinine Ratio 18.7 (10-20); Blood Urea Nitrogen 17 mg/dl (6-23); Calcium 8.1 mg/dl (8.6-10.3); Carbon Dioxide 28 mmol/L (21-32); Chloride 101 mmol/L (98-107); Glucose 244 mg/dl (70-99(Fasting)); Sodium 133 mmol/L (136-145)
[2024-12-30] MEDS: carvediloL 6.25 MG TAB PO SCH (07:36)
[2024-12-30] MEDS: ATORVASTATIN 10 MG TAB PO SCH (07:36)
[2024-12-30] MEDS: ASPIRIN 81 MG ECTAB PO SCH (07:36)
[2024-12-30] MEDS: LOSARTAN POTASSIUM 50 MG TAB PO SCH (07:36)
[2024-12-30 19:37] VITALS: TEMP 97.9
--- NOTE | 2024-12-30 23:18 | Hospitalist Progress Note ---
Date of Service December 30, 2024 Assessment & Plan (1) Nausea vomiting and diarrhea: Plan: 74yo male with history of DM, HTN, HLP presenting with three days of nausea/vomiting and diarrhea. Patient denies recent antibiotic use or recent intake of any improperly cooked or handled food. He does have family members with similar symptoms. Vital signs are stable with no hypotension or tachycardia. Abdomen is non-tender. Renal function, electrolytes and other lab findings are fairly normal. Suspect viral gastroenteritis. -Observation to medical -begative stool PCR - patient reports his last episode of diarrhea was yesterday 12/28/24 -Continue gentle hydration - LR at 80mL/hr x 1L -Encourage PO intake as tolerated -Zofran PRN -Tylenol PRN symptoms improving, anticipate discharge in AM -PT/OT evaluation for reported weakness (2) Type 2 diabetes mellitus: Plan: Elevated blood qoknr=189 today. Patient reports he hasn't taken his medications for several days. He is on Glimepiride as well as Insulin -Hold Glimepiride -Lantus 24u BID - first dose now (3) Hypothyroidism: Plan: Chronic. -Continue Synthroid 50mcg po daily (4) Hypertension: Plan: Chronic. Blood pressure stable -Continue Carvedilol 6.25mg po BID - first dose tomorrow AM 0900 -Continue Losartan -Continue to hold Lasix (5) Dyslipidemia: Plan: Chronic -Continue Atorvastatin 10mg po daily Admission and Anticipated Discharge Date Admission Date: December 29, 2024 Subjective Paient reports his symptoms have improved. Physical Exam Constitutional: WD/WN, vitals as above Respiratory: normal respiratory effort Psychiatric: A+Ox3, euthymic affect Results & Data Results & Data Vital Signs (Past 12 Hours) Vital Signs Temp Pulse Resp BP BP Pulse Ox O2 Del Method 12/30/24 19:36 36.6 C 64 18 140/78 99 Room Air 12/30/24 15:33 36.7 C 66 16 150/85 H 95 Room Air PG Care Time/CCT Total # of Minutes Spent Total Time Spent with Patient: Total time spent is greater than 50% in coordination of care (as documented) at patient's floor/unit and/or counseling patient: Coding Level of Care Code 41632 SUB INP/OBS CARE 2/35MIN Diagnoses Nausea vomiting and diarrhea R11.2; R19.7 Type 2 diabetes mellitus E11.9 Hypothyroidism E03.9 Hypertension I10 Dyslipidemia E78.5
[2024-12-31 07:50] VITALS: BP 154/85; PULSE 57; RESP 16; O2SAT 96
--- NOTE | 2024-12-31 09:02 | Discharge Summary ---
Discharge Summary Date of Service December 31, 2024 Principal Dx & Hospital Course #1 = Principal Diagnosis (1) Nausea vomiting and diarrhea: 74yo male with history of DM, HTN, HLP presenting with three days of nausea/vomiting and diarrhea. Patient denies recent antibiotic use or recent intake of any improperly cooked or handled food. He does have family members with similar symptoms. Vital signs are stable with no hypotension or tachycardia. Abdomen is non-tender. Renal function, electrolytes and other lab findings are fairly normal. Suspect viral gastroenteritis. -negative stool PCR - patient reports his last episode of diarrhea was yesterday 12/28/24 -Continue gentle hydration - LR at 80mL/hr x 1L -symptoms resolved with supportive care as noted above. Tolerating diet, likely viral gastroenteritis. (2) Type 2 diabetes mellitus: Elevated blood [id number]=[id number] today. Patient reports he hasn't taken his medications for several days. He is on Glimepiride as well as Insulin -resume home meds. (3) Hypothyroidism: Chronic. -Continue Synthroid 50mcg po daily (4) Hypertension: Chronic. Blood pressure stable -Continue Carvedilol 6.25mg po BID - first dose tomorrow AM 0900 -Continue Losartan -Continue to hold Lasix (5) Dyslipidemia: Chronic -Continue Atorvastatin 10mg po daily Admission HPI Per Admitting Provider Omega Chawla is a pleasant 74yo male with history of DM on insulin, HTN, HLP, GERD and Hypothyroidism presenting with three days of nausea/vomiting/diarrhea. Patient reports multiple episodes of non-bloody/non-mucoid diarrhea ongoing since 12/27/24 as well as multiple episodes of non-bloody/non-bilious emesis. Patient has not been able to tolerate PO intake or take any medications for the last several days. He has felt very weak and fatigued as well. Otherwise he denies chest pain, cough, SOB, abdominal pain, urinary complaints. No additional complaints at this time. ER Course: NSS x 500mL Zofran 4mg IV Tylenol 1gm PO Discharge Exam Constitutional WD/WN, vitals as above Respiratory normal respiratory effort Psychiatric A+Ox3, euthymic affect Discharge Plan Discharge Items Patient Disposition: Home - Self-Care Reason For Visit: NAUSEA, VOMITING, DIARRHEA Discharge Diagnosis: Nausea/ vomiting Activity: Resume your previous activity Non-emergency contact: Primary Care Provider Call non-emergency contact if: you have any medication questions Follow-up/Referrals: Marlene Haines PA-C [Primary Care Provider] - 01/07/25 11:00 am Diet: Carb Consistent or DM2 Addtl Attending Provider Instructions: recommend followup with PCP in 1-2 weeks. Pending Studies at Discharge: No Stand-Alone Forms: [facility] payleven, Smoking Cessation Medications and DC Order Prescriptions: Continued aspirin [Adult Aspirin Regimen] 81 mg tablet,delayed release (DR/EC) 81 mg PO QAM carvedilol 6.25 mg tablet See Rx Instructions .ROUTE .COMPLEX Qty: 180 3RF Dose Instruction: Take 1 tablet by mouth twice daily with food Rx Instructions: Take 1 tablet by mouth twice daily with food atorvastatin [Lipitor] 10 mg tablet 10 mg PO QAM Qty: 90 3RF levothyroxine 50 mcg tablet See Rx Instructions .ROUTE .COMPLEX Qty: 90 2RF Dose Instruction: Take 1 tablet by mouth once daily Rx Instructions: Take 1 tablet by mouth once daily (DME) pen needle, diabetic [CareFine Pen Needle] 31 gauge x 1/4" needle See Rx Instructions .Route Qty: 100 1RF Rx Instructions: use daily multivitamin Tablet 1 tab PO QAM losartan 50 mg tablet 50 mg PO QAM glimepiride 1 mg tablet 1 mg PO BID Qty: 180 3RF Rx Instructions: administer with breakfast and supper (DME) OneTouch Ultra Test Strip See Rx Instructions .Route Qty: 100 5RF Rx Instructions: Test blood sugar two times a day; E11.65 hydrocodone-acetaminophen 5-325 mg tablet 1 tab PO Q6H PRN (Reason: pain) Qty: 20 0RF tramadol 50 mg tablet 50 mg PO Q6H PRN (Reason: pain, moderate) Qty: 20 0RF No Action furosemide 20 mg tablet 40 mg PO QAM Rx Instructions: ([facility] pt states this was increased but only takes "as needed") potassium 99 mg tablet 99 mg PO QAM Rx Instructions: Takes daily insulin glargine [Lantus Solostar U-100 Insulin] 100 unit/mL (3 mL) insulin pen 55 unit subcut QPM MDD 70 Qty: 45 2RF Discharge Orders: Discharge Order (Routine); Ordered 12/31/24 Ordered By: Jordan Peres Admission Data Admit Date/Time: 12/29/24 20:42 Attending Provider: Jordan Peres Admit Provider: Luci Velez Primary Care Provider: Marlene Haines Other Providers: Luci Velez Other Interventions: Discharge Summary Assessment (RN) Last Done: 12/31/24 09:48 Hospital Stay Data Consultations 12/29/24 19:55 ED Decision to Admit Stat Pending Results Patient Have Any Pending Studies at Discharge: No Discharge Instructions Given to Patient (Per Discharging Provider) recommend followup with PCP in 1-2 weeks. Total Time Total Time Spent Total Time Spent (In Minutes): 32 Coding Level of Care Code 55775 INP/OBS DISCH >30 MIN Diagnoses Nausea vomiting and diarrhea R11.2; R19.7 Type 2 diabetes mellitus E11.9 Hypothyroidism E03.9 Hypertension I10 Dyslipidemia E78.5
[2025-01-01 06:48] LABS: Estimated Average Glucose 243 mg/dl; Hemoglobin A1C 10.1 % (4.5-5.6)
== END 2024-12-31 11:05 | disposition home or self-care (01) ==
LOC: 3E 15:45 → ED 15:45 → SUATTDRO 20:42 → 3E 12-30 00:13
DX: R11.2 Nausea with vomiting, unspecified; F17.220 Nicotine dependence, chewing tobacco, uncomplicated; Z88.5 Allergy status to narcotic agent; Z88.0 Allergy status to penicillin; E11.9 Type 2 diabetes mellitus without complications; Z79.899 Other long term (current) drug therapy; I10 Essential (primary) hypertension; R19.7 Diarrhea, unspecified; Z79.82 Long term (current) use of aspirin; E78.5 Hyperlipidemia, unspecified; Z79.4 Long term (current) use of insulin; Z79.84 Long term (current) use of oral hypoglycemic drugs; E03.9 Hypothyroidism, unspecified

== ENCOUNTER 2025-06-11 13:48 | Observation (INO) ==
--- NOTE | 2025-06-11 15:02 | XRay Report ---
XR chest 1V portable CLINICAL HISTORY: Chest pain, nonspecific COMPARISON STUDY: 12/29/2024 FINDINGS: Portable erect chest is unchanged alignment for technical differences. There is no acute pu lmonary process identified. Cardiomegaly and pulmonary vascular congestion are persistent. There is n o focal airspace opacity, pleural effusion, or pneumothorax. Bilateral shoulder joint arthritis is mo st again noted. IMPRESSION: Stable exam; no acute findings ACT 112: Negative or not required by law. Electronically signed by: Cassia Davey M.D. 06/11/2025 3:01 PM
--- NOTE | 2025-06-11 15:03 | Emergency Department Note ---
Impression & Plan Precordial chest pain, Pedal edema, Fluid overload ED Provider Note NAME: NEMESIO KESSLER Jr AGE: 75 SEX: M : 1950 ARRIVES VIA: Walk-In INFORMANT: [Patient] ED PROVIDER(S): [Alonzo Lopez MD] CHIEF COMPLAINT: Cardiac assessment HISTORY OF PRESENT ILLNESS: The patient is a 75-year-old male who presents to the ER with some left-sided chest pain that started today when he was sitting. The pain lasted for about 15 minutes and then resolved. He has no pain now. 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 The patient does have Lasix prescribed although, he admits he does not take it often because he is always in the bathroom. The patient does have some dyspnea on exertion, he has not had fever, no cough or congestion. PMHx/PSHx/Social Hx: See Below PHYSICAL EXAM: GENERAL: Patient is in no acute distress. HEENT: No acute trauma, normocephalic atraumatic, mucous membranes moist, no nasal congestion. NECK: No stridor, no adenopathy, no meningismus, trachea is midline. LUNGS: Clear to auscultation bilaterally when listening anterior, no wheeze, no rhonchi, breath sounds equal. HEART: Without murmurs gallops or rubs, regular rate and rhythm. Heart tones distant. ABDOMEN: Soft, nontender, no peritonitis. EXTREMITIES: No cyanosis, full range of motion of all the joints without pain or difficulty. Significant bilateral pedal edema. NEUROLOGIC: Oriented x 3, no acute motor or sensory deficits, no focal weakness. SKIN: No jaundice, no diaphoresis. DIFFERENTIAL DIAGNOSIS: Fluid overload, CHF, medication noncompliance, electrolyte balance, renal failure, MS, among others. EMERGENCY DEPARTMENT PROCEDURES: MEDICAL DECISION MAKING: There is no leukocytosis. There is no anemia. There is a normal platelet count. No renal failure. No coagulopathy. No significant electrolyte abnormality. No worrisome liver enzyme elevation. No pancreatitis. ECG shows a sinus rhythm, no ST elevation. Cardiac enzyme testing x 1 is not suggestive of acute cardiac injury. Chest x-ray does not show CHF or pneumonia. BNP was not elevated making fluid overload unlikely. On exam, the patient had significant bilateral pedal edema. He admitted that he had not been taking his Lasix as prescribed. Patient was given 60 mg of IV Lasix. Patient is quite fluid overloaded. He was sent in by cardiology for a 30 pound weight gain. He will require a hospital stay for diuresis. At this point, the cause of the chest pain is unclear but, he does not appear to have suffered an acute cardiac event. I did speak with the patient and case management, the on-call hospitalist was consulted. Prior/Outside records/notes reviewed: None ECG per my interpretation: Indication was chest pain. The ECG shows a normal sinus rhythm with a rate of 75. There is LVH present. There is some nonspecific ST change. There is no acute ST elevation, no PVCs. The QTc is 433. Continuous Cardiac Monitoring per my interpretation: An order was placed for continuous cardiac monitoring. The monitor shows a rate of 83 with normal sinus rhythm. Imaging/x-ray results per my interpretation: Chest x-ray does not show mediastinal widening, pneumonia or CHF. Chronic Medical/Social conditions affecting care: Advanced age, medication noncompliance. Care/Management discussed with: Case management, the on-call hospitalist. 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: No Beliefs That Will Affect Care: None marital status: Current Living Situation: Parent Current Living Situation Comment: , son, DIL current occupational status: retired Feels Safe at Home: Yes Seatbelt Use: always Sunscreen Use: Yes Assistive Devices: Cane and Walker Allergies Allergies Allergy/AdvReac Type Severity Reaction Status Date / Time Penicillins Allergy Mild rash Verified 06/11/25 15:02 codeine AdvReac Intermediate hallucinati Verified 06/11/25 15:02 ons lisinopril AdvReac Intermediate cough Verified 06/11/25 15:02 metformin AdvReac Intermediate diarrhea Verified 06/11/25 15:02 olmesartan AdvReac Intermediate cough Verified 06/11/25 15:02 oxycodone AdvReac Intermediate hallucinati Verified 06/11/25 15:02 ons Home Meds Home Medications Medication Instructions Recorded Confirmed aspirin 81 mg tablet,delayed 81 mg PO QAM 08/28/18 06/11/25 release (Adult Aspirin Regimen) losartan 50 mg tablet 50 mg PO QAM 07/04/22 06/11/25 furosemide 20 mg tablet 20 mg PO QAM PRN FLUID 01/02/25 06/11/25 RETENTION/EDEMA celecoxib 100 mg capsule (Celebrex) 100 mg PO BID 03/03/25 06/11/25 diclofenac sodium 1 % topical gel 2 g topical QID PRN JOINT/MUSCLE 03/03/25 06/11/25 (Arthritis Pain (diclofenac)) PAIN lidocaine 5 % topical patch 2 patch topical DAILY PRN Pain 03/03/25 06/11/25 multivitamin 1 tab PO DAILY 04/06/25 06/11/25 carvedilol 6.25 mg tablet 6.25 mg PO BIDM 06/11/25 06/11/25 glimepiride 1 mg tablet 1 mg PO BIDM 06/11/25 06/11/25 levothyroxine 50 mcg tablet 50 mcg PO DAILYBB 06/11/25 06/11/25 potassium gluconate 600 mg (99 mg) 600 mg PO DAILY 06/11/25 06/11/25 tablet Previous Rx's Medication Instructions Recorded pen needle, diabetic 31 gauge x #100 ea 12/25/2311/29" (CareFine Pen Needle) atorvastatin 10 mg tablet (Lipitor) 10 mg PO QAM #90 tabs 05/19/24 OneTouch Ultra Test (blood sugar #100 ea 12/24/24 diagnostic) tramadol 50 mg tablet 50 mg PO Q6H PRN pain, moderate 02/19/25 #60 tabs stand up walker #1 ea 03/13/25 walker #1 ea 04/08/25 insulin glargine 100 unit/mL (3 40 unit (0.4 mL) subcut BID #90 mL 06/08/25 mL) subcutaneous pen (Lantus Solostar U-100 Insulin) Results & Data (ED) Vital Signs Vital Signs - 24 hr 06/11/25 13:48 06/11/25 13:48 06/11/25 13:51 Temperature 36.5 C Temperature Source Temporal Artery Scan Pulse Rate 72 Pulse Rate from SpO2 Sensor Pulse Rhythm Regular Respiratory Rate 18 Respiratory Effort / Characteristics Non-Labored Spontaneous Non-Labored Spontaneous Respiratory Depth Normal Normal Respiratory Pattern Regular Blood Pressure 173/95 H Blood Pressure Mean 121 Blood Pressure Position Sitting Pulse Oximetry 95 Oxygen Delivery Method Room Air Room Air Sepsis Recent Fever Within 48 Hours No Sepsis New/Unexplained Change in Mental Status N/A Sepsis Action Taken by Nursing No Action Required 06/11/25 14:15 06/11/25 14:18 06/11/25 14:30 Temperature Temperature Source Pulse Rate 83 74 Pulse Rate from SpO2 Sensor 73 Pulse Rhythm Respiratory Rate 13 Respiratory Effort / Characteristics Respiratory Depth Respiratory Pattern Blood Pressure 164/88 H Blood Pressure Mean 113 Blood Pressure Position Pulse Oximetry 97 95 Oxygen Delivery Method Room Air Sepsis Recent Fever Within 48 Hours Sepsis New/Unexplained Change in Mental Status Sepsis Action Taken by Nursing 06/11/25 15:30 06/11/25 16:05 06/11/25 16:42 Temperature Temperature Source Pulse Rate 70 75 79 Pulse Rate from SpO2 Sensor 70 75 79 Pulse Rhythm Respiratory Rate 22 20 18 Respiratory Effort / Characteristics Respiratory Depth Respiratory Pattern Blood Pressure 142/98 H 142/97 H Blood Pressure Mean 122 110 Blood Pressure Position Pulse Oximetry 94 94 Oxygen Delivery Method Sepsis Recent Fever Within 48 Hours Sepsis New/Unexplained Change in Mental Status Sepsis Action Taken by [facility] Medications Current Medication List: was personally reviewed by me Laboratory Data Attestation: I reviewed the patient's lab results. 06/11/25 15:08 06/11/25 15:08 Lab Results 06/11/25 Range/Units 15:08 WBC 9.46 (4.8-10.8) K/ul RBC 5.43 (4.70-6.10) M/uL Hgb 14.9 (14.0-18.0) g/dl Hct 45.5 (42.0-52.0) % MCV 83.8 (80.0-100.0) fL MCH 27.4 (25.0-34.0) pg MCHC 32.7 (32.0-36.0) g/dL RDW Std Deviation 46.4 H (36.4-46.3) fL RDW Coeff of Ro 15.3 H (11.5-14.5) % Plt Count 176 (130-400) K/uL MPV 9.4 (9.4-12.4) fL Immature Gran % (Auto) 0.3 % Neut % (Auto) 70.4 % Lymph % (Auto) 21.0 % [place] % (Auto) 6.3 % Eos % (Auto) 1.6 % Baso % (Auto) 0.4 % Neut # (Auto) 6.65 H (1.40-6.50) K/uL Lymph # (Auto) 1.99 (1.20-3.40) K/uL [place] # (Auto) 0.60 H (0.11-0.59) K/uL Eos # (Auto) 0.15 (0.00-0.50) K/uL Baso # (Auto) 0.04 (0.00-0.20) K/uL Immature Gran # (Auto) 0.03 (0.01-0.20) K/uL PT 10.5 (9.0-12.0) Seconds INR 1.0 (0.9-1.1) APTT 29 (21-31) Seconds PTT Ratio 1.1 Sodium 136 (136-145) mmol/L Potassium 3.8 (3.5-5.1) mmol/L Chloride 102 (98-107) mmol/L Carbon Dioxide 28 (21-32) mmol/L Anion Gap 6 (3-11) BUN 18 (6-23) mg/dl Creatinine 0.94 (0.6-1.4) mg/dl Est Cr Clr Drug Dosing 91.8 ml/min eGFR 85.07 BUN/Creatinine Ratio 19.1 (10-20) Glucose 238 H (70-99(Fasting)) mg/dl Calcium 9.3 (8.6-10.3) mg/dl Magnesium 1.9 (1.7-2.4) mg/dl Total Bilirubin 0.6 (0.2-1.0) mg/dl AST 22 (13-39) U/L ALT 24 (7-52) U/L Alkaline Phosphatase 77 (34-104) U/L Troponin I High Sens 7.3 (0-20) pg/ml B-Natriuretic Peptide 19 (0-100) pg/ml Total Protein 7.4 (6.0-8.3) gm/dl Albumin 3.9 (3.4-5.0) gm/dl Globulin 3.5 (2.5-4.0) gm/dl Albumin/Globulin Ratio 1.1 (0.9-2) Lipase 18 (11-82) U/L Administered Medications Discontinued Medications Furosemide (Furosemide 40 Mg/4 Ml Vial) 60 mg IV ONE ONE Stop: 06/11/25 14:42 Last Admin: 06/11/25 15:13 Dose: 60 mg Documented By: JUSTIN Imaging Data Radiologist's Impression: Chest X-Ray 06/11/25 14:30 XR chest 1V portable CLINICAL HISTORY: Chest pain, nonspecific COMPARISON STUDY: 12/29/2024 FINDINGS: Portable erect chest is unchanged alignment for technical differences. There is no acute pulmonary process identified. Cardiomegaly and pulmonary vascular congestion are persistent. There is no focal airspace opacity, pleural effusion, or pneumothorax. Bilateral shoulder joint arthritis is most again noted. IMPRESSION: Stable exam; no acute findings ACT 112: Negative or not required by law. Electronically signed by: Cassia Davey M.D. 06/11/2025 3:01 PM Discharge Plan Visit Data Chief Complaint: Cardiac Assessment Stated Complaint: REF BY DOC FOR HEART ED Provider: Alonzo Lopez Discharge Problem: Precordial chest pain, Pedal edema, Fluid overload Patient Disposition: Admitted As Inpatient Condition: Fair Forms Stand Alone Forms: [facility] Prescriptions Prescriptions: No Action aspirin [Adult Aspirin Regimen] 81 mg tablet,delayed release (DR/EC) 81 mg PO QAM atorvastatin [Lipitor] 10 mg tablet 10 mg PO QAM Qty: 90 3RF (DME) stand up walker See Rx Instructions .Route .MEDSUPPLY Qty: 1 0RF Rx Instructions: As directed (DME) walker [facility] [place] See Rx Instructions .Route Qty: 1 0RF Rx Instructions: Rolator walker with Breaks lenght of need 99month (DME) pen needle, diabetic [CareFine Pen Needle] 31 gauge x 1/4" needle See Rx Instructions .Route Qty: 100 1RF Rx Instructions: use daily losartan 50 mg tablet 50 mg PO QAM (DME) OneTouch Ultra Test Strip See Rx Instructions .Route Qty: 100 5RF Rx Instructions: Test blood sugar two times a day; E11.65 celecoxib [Celebrex] 100 mg capsule 100 mg PO BID diclofenac sodium [Arthritis Pain (diclofenac)] 1 % gel 2 g topical QID PRN (Reason: JOINT/MUSCLE PAIN) lidocaine 5 % adhesive patch,medicated 2 patch topical DAILY PRN (Reason: Pain) Rx Instructions: leave on most painful area for up to 12 hrs tramadol 50 mg tablet 50 mg PO Q6H PRN (Reason: pain, moderate) Qty: 60 0RF multivitamin Tablet 1 tab PO DAILY insulin glargine [Lantus Solostar U-100 Insulin] 100 unit/mL (3 mL) insulin pen 40 unit subcut BID MDD 100 Qty: 90 2RF Rx Instructions: Inject 40 units twice daily furosemide 20 mg tablet 20 mg PO QAM PRN (Reason: FLUID RETENTION/EDEMA) Rx Instructions: PER PT "ONLY TAKE NEEDED". potassium gluconate 600 mg (99 mg) Tablet 600 mg PO DAILY carvedilol 6.25 mg tablet 6.25 mg PO BIDM Rx Instructions: Take 1 tablet by mouth twice daily with food glimepiride 1 mg tablet 1 mg PO BIDM Rx Instructions: administer with breakfast and supper levothyroxine 50 mcg tablet 50 mcg PO DAILYBB Rx Instructions: Take 1 tablet by mouth once daily Referrals Referrals: Gurdeep Alarcon DO [Primary Care Provider] - Discharge Problem: Fluid overload Qualifiers: Hypervolemia type: unspecified Qualified Code(s): E87.70 - Fluid overload, unspecified
[2025-06-11] MEDS: FUROSEMIDE 40 MG/4 ML VIAL IV ONE ×2 (15:13→21:07)
[2025-06-11 15:21] LABS: Hematocrit (blood only) 45.5 % (42.0-52.0); Hemoglobin 14.9 g/dl (14.0-18.0); Immature Granulocytes # (auto) 0.03 K/uL (0.01-0.20); Immature Granulocytes % (auto) 0.3 %; Mean Corpuscular Hemoglobin 27.4 pg (25.0-34.0); Mean Corpuscular Volume 83.8 fL (80.0-100.0); Platelet Count 176 K/uL (130-400); RDW Standard Deviation 46.4 fL (36.4-46.3); Red Blood Count 5.43 M/uL (4.70-6.10); White Blood Count 9.46 K/ul (4.8-10.8)
[2025-06-11 15:40] LABS: Alanine Aminotransferase 24.0 U/L (7-52); Albumin Globulin Ratio 1.1 (0.9-2); Alkaline Phosphatase 77.0 U/L (34-104); Anion Gap 6.0 (3-11); Bilirubin,Total 0.6 mg/dl (0.2-1.0); Blood Urea Nitrogen 18.0 mg/dl (6-23); Calcium 9.3 mg/dl (8.6-10.3); Carbon Dioxide 28.0 mmol/L (21-32); Chloride 102.0 mmol/L (98-107); Creatinine Clr Calc Pharmacy 91.8 ml/min; Globulin 3.5 gm/dl (2.5-4.0); Glucose 238.0 mg/dl (70-99(Fasting)); Lipase 18.0 U/L (11-82); Magnesium 1.9 mg/dl (1.7-2.4); Potassium 3.8 mmol/L (3.5-5.1); Sodium 136.0 mmol/L (136-145); Total Protein 7.4 gm/dl (6.0-8.3)
[2025-06-11 15:48] LABS: INR 1.0 (0.9-1.1); Partial Thromboplastin Time 29 Seconds (21-31); Prothrombin Time 10.5 Seconds (9.0-12.0)
[2025-06-11] MEDS ORDERED: ACETAMINOPHEN 325 MG TAB PO PRN (16:18)
[2025-06-11 19:47] VITALS: RESP 18
[2025-06-11] MEDS: HEPARIN SOD 5,000 UNIT/0.5 ML VIAL SQ SCH (21:07)
[2025-06-11] MEDS: LANTUS PER UNIT CHARGE SC SCH (21:07)
--- NOTE | 2025-06-11 22:00 | History & Physical Report ---
Date of Service June 11, 2025 Assessment & Plan (1) Leg edema: Plan: As above in the HPI. Admission and Anticipated Discharge Date Admission Date: June 11, 2025 History of Present Illness Chief Complaint: "I am ok. I really am. I only came to [facility] ER, because I saw my CARDS Dr. Dwain Evans ([place], [place]) this morning and he was very upset with me. I told him that I decided to stop taking my lasix because I was peeing all the time, in my pants, in my bed, and it was not good. Dr. Evans told me that I gained 30 pounds in 3 days and I said that was impossible. I told Dr. Evans that I normally weigh 295 pounds at home on a good day, and that is what I weighed today in Dr. Evans's office. He kept telling me that I weigh 265 pounds, and I said no, I weigh 295 pounds. Anyways, Dr. Evans was upset with me and said I have to go to [facility] ER to get the 30 pounds off me, so I did what Dr. Evans said to do, and here I am. I'll take the lasix here in the hospital, and go home tomorrow, but I'm hungry right now, can I have some food?" Primary Care Provider: Gurdeep Alarcon, 75 years old male with PMH of FULL CODE @ home, morbid obesity with BMI 41.1 (height 180.3 cm; weight 133.8 kg), chronic ambulatory dysfunction utilizing walker @ home, former tobacco abuse with no subsequent diagnosis of COPD, not on home O2 or home steroids, hyperlipidemia on atorvastatin 10mg PO qam, hypothyroidism with TSH 6.440 uIU/mL (03/31/2025, 9:29am) on synthroid 50ug PO daily, non-insulin dependent DM2 with HbA1c 8.2% (03/31/2025, 9:29am) on lantus 40 units SQ bid and glimepiride 1mg PO bid, HTN on carvedilol 6.25mg PO bid, losartan 50mg PO qam, lasix 20mg PO daily prn leg edema, and chronic diastolic CHF with preserved LVEF 55% and grade I LV diastolic dysfunction with height 180.3 cm and weight 292 pounds = 132.7 kg (as reported on 01/06/2022, 7:05am TTE, CARDS Dr. Dwain Evans), who reports sleeping in a recliner every night since 2019, who reports: "I am ok. I really am. I only came to [facility] ER, because I saw my CARDS Dr. Dwain Evans ([place]) this morning and he was very upset with me. I told him that I decided to stop taking my lasix because I was peeing all the time, in my pants, in my bed, and it was not good. Dr. Evans told me that I gained 30 pounds in 3 days and I said that was impossible. I told Dr. Evans that I normally weigh 295 pounds at home on a good day, and that is what I weighed today in Dr. Evans's office. He kept telling me that I weigh 265 pounds, and I said no, I weigh 295 pounds. Anyways, Dr. Evans was upset with me and said I have to go to [facility] ER to get the 30 pounds off me, so I did what Dr. Evans said to do, and here I am. I'll take the lasix here in the hospital, and go home tomorrow, but I'm hungry right now, can I have some food?" Patient denies antecedent/coincident weight gain, weight loss, paroxysmal nocturnal dyspnea, orthopnea, platypnea, fevers, chills, diaphoresis, cough, wheeze, sore throat, hemoptysis, chest pains, palpitations, pleurisy, nausea, vomiting, diarrhea, abdominal pain, pelvic pain, hematemesis, hematochezia, melena, hematuria, dysuria, frequency, urgency, headaches, dizziness, lightheadedness, visual changes, hearing changes, weakness, falls, syncope, trauma, travel history, sick contacts, or food/drug ingestions novel or new. All other review of systems are reported as negative by the patient on 06/11/2025. In [facility] ER bed #C05, patient was afebrile @ 36.5 degrees Celsius, HR 72, RR 18, O2 sat 95% on room air, and BP 173/95 (06/11/2025, 1:51pm). Exam was noted for clear and non-tender chest. 3+ pitting pedal edema with extension to the bilateral upper shins, but sparing the knees, hips, thighs, and abdomen. Labs in [facility] ER bed #C05 included: WBC 9.46, N70 L21 M6 E2, Hb 14.9, MCV 83.8, MCHC 32.7, platelet 176 (06/11/2025, 3:08pm). INR 1.0 (06/11/2025, 3:08pm). Na 136, K 3.8, BUN 18, creatinine 0.94, glucose 238, Ca 9.3, Mg 1.9, AST 22, ALT 24, ALK PHOS 77, TBili 0.6 (06/11/2025, 3:08pm). Troponin-I #1 7.3 pg/mL (06/11/2025, 3:08pm). BNP 19 pg/mL (06/11/2025, 3:08pm). Lipase 18 U/L (06/11/2025, 3:08m). Additional testing in [facility] ER bed #C05 included: Portable CXR (06/11/2025, 2:30pm): Cardiomegaly. No infiltrate, effusion, pulmonary vascular congestion, or pneumothorax (by my review). EKG (06/11/2025, 2:08pm): NSR @ 75, WV 174, QTC 433, LAFB, no acute ST depressions/elevations (by my review). Historical testing in [facility] includes: EKG (12/29/2024, 4:00pm): NSR @ 99, WV 168, QTC 420, LAFB, no acute ST depressions/elevations (by my review). Patient was subsequently placed in OBSERVATION on the hospitalist service @ [facility] on 06/11/2025 with the following diagnosis: 1. Chronic bilateral lower extremity/denis edema, NOT acute exacerbation chronic diastolic CHF. Due to non-compliance with lasix at home as patient concedes: "I decided to stop taking my lasix because I was peeing all the time, in my pants, in my bed, and it was not good." To address #1, patient received lasix 60mg IV x 1 dose (06/11/2025, 3:13pm) in [facility] ER bed #C05. Patient will receive lasix 120mg IV x 2 doses (06/11/2025, 9:13pm; 06/12/2025, 9:13am) in [facility] Med-Surg floor, followed by D/C home after breakfast on 06/12/2025, on lasix 40mg PO daily. Patient reports that he will comply with lasix 40mg PO daily. Allergies Allergy/AdvReac Type Severity Reaction Status Date / Time Penicillins Allergy Mild rash Verified 06/11/25 15:02 codeine AdvReac Intermediate hallucinati Verified 06/11/25 15:02 ons lisinopril AdvReac Intermediate cough Verified 06/11/25 15:02 metformin AdvReac Intermediate diarrhea Verified 06/11/25 15:02 olmesartan AdvReac Intermediate cough Verified 06/11/25 15:02 oxycodone AdvReac Intermediate hallucinati Verified 06/11/25 15:02 ons Home Medications Medication Instructions Recorded Confirmed Type aspirin 81 mg tablet,delayed 81 mg PO QAM 08/28/18 06/11/25 History release (Adult Aspirin Regimen) losartan 50 mg tablet 50 mg PO QAM 07/04/22 06/11/25 History pen needle, diabetic 31 gauge x #100 ea 12/25/23 04/06/25 Rx 1/4" (CareFine Pen Needle) atorvastatin 10 mg tablet (Lipitor) 10 mg PO QAM #90 tabs 05/19/24 06/11/25 Rx OneTouch Ultra Test (blood sugar #100 ea 12/24/24 04/06/25 Rx diagnostic) furosemide 20 mg tablet 20 mg PO QAM PRN FLUID 01/02/25 06/11/25 History RETENTION/EDEMA tramadol 50 mg tablet 50 mg PO Q6H PRN pain, moderate 02/19/25 06/11/25 Rx #60 tabs celecoxib 100 mg capsule (Celebrex) 100 mg PO BID 03/03/25 06/11/25 History diclofenac sodium 1 % topical gel 2 g topical QID PRN JOINT/MUSCLE 03/03/25 06/11/25 History (Arthritis Pain (diclofenac)) PAIN lidocaine 5 % topical patch 2 patch topical DAILY PRN Pain 03/03/25 06/11/25 History stand up walker #1 ea 03/13/25 04/06/25 Rx multivitamin 1 tab PO DAILY 04/06/25 06/11/25 History walker #1 ea 04/08/25 Rx insulin glargine 100 unit/mL (3 40 unit (0.4 mL) subcut BID #90 mL 06/08/25 06/11/25 Rx mL) subcutaneous pen (Lantus Solostar U-100 Insulin) carvedilol 6.25 mg tablet 6.25 mg PO BIDM 06/11/25 06/11/25 History glimepiride 1 mg tablet 1 mg PO BIDM 06/11/25 06/11/25 History levothyroxine 50 mcg tablet 50 mcg PO DAILYBB 06/11/25 06/11/25 History potassium gluconate 600 mg (99 mg) 600 mg PO DAILY 06/11/25 06/11/25 History tablet Past Med/Surg History Problem List (Updated 06/11/25 @ 22:03 by Anthony Fairbanks MD, PhD) Leg edema Fluid overload (Acute) Pedal edema (Acute) Precordial chest pain (Acute) Ambulatory dysfunction (Acute) Gastroenteritis (Acute) Weakness (Acute) Nausea vomiting and diarrhea 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 Chronic pain syndrome Encounter for pre-operative examination Right leg swelling Right leg pain Hypothyroidism Type 2 diabetes mellitus Diabetes mellitus type 2, uncontrolled Sacroiliitis Low back pain Edema of both legs Chronic osteoarthritis History of DVT (deep vein thrombosis) post-op right foot surgery (2005) Pulmonary hypertension on chest CT, improved with diuresis 12/2021 Chronic venous insufficiency follows w/ [facility] vascular Hypertension controlled, stable per pt Hepatic steatosis Dyslipidemia Medical History LEO (obstructive sleep apnea) Presumed per cardio records Diastolic dysfunction On Lasix per cardio records Seasonal allergies Poor circulation of extremity B/L lower extremities BPH NOS w/o ur obs/LUTS Hypothyroidism Tachycardia remote hx controlled on beta lanre Type 2 diabetes mellitus IDDM Gastroesophageal reflux disease controlled, stable per pt Protrusion of lumbar intervertebral disc L4-5, small lateral right sided Lumbar spinal stenosis Multifactorial multilevel Surgical History S/P epidural steroid injection 02/20/2024-lumbar; Dr Pedro History of arthroscopy of left knee S/P insertion of spinal cord stimulator History of difficult intubation Left SI joint fusion: 12/16/19: Grade view 1, Glidescope#4, ETT 8.0 at [facility] Fusion of lumbosacral spine RIGHT AND LEFT SI joint fusion History of colonoscopy History of elbow surgery RT History of total knee arthroplasty RIGHT H/O foot surgery R&L Family History Mother , at 87 years of age from natural causes. Gout Hypertension Family history of diabetes mellitus Father , at 72 years of age from brain CA in the setting of tobacco abuse. Brain tumor Brother Diabetes Congenital deafness Family history of diabetes mellitus Diverticulitis of colon Other Family history non-contributory Denies family history of Ovarian cancer Prostate cancer Myocardial infarction Lung cancer Stroke Social History Smoking Status: Never smoker Tobacco Type: Smokeless Tobacco (Dip or Chew) Age Started Using Tobacco: 36; Second Hand Exposure: No; Do You Dip or Chew Tobacco: Yes; Hx Alcohol Use: No (pt states stopped drinking 49 years ago) Hx Substance Use: No Preferred Language: Mauritian Communication Ability: Effective Visual Impairment: No Limitations Hearing Ability: Normal Farm Manager Required: No Beliefs That Will Affect Care: None marital status: Current Living Situation: Spouse Current Living Situation Comment: lives with current occupational status: retired Other Information That Helps Us Care for You: No Feels Safe at Home: Yes Safety Concerns: Feels Safe At This Time Seatbelt Use: always Sunscreen Use: Yes Assistive Devices: Cane and Walker Review of Systems Constitutional: As above in the HPI. Physical Exam Constitutional: General: Comfortable, coherent, and cooperative. Not confused, obtunded, or lethargic. Patient speaks with regular yung, and in complete, fluent, and articulate 7-9 word sentences without pause, interruption, cough, or wheeze with O2 sat 97% on room air (06/11/2025, 8:14pm). HEENT: Normocephalic, atraumatic. No nystagmus, gaze paresis, anisocoria, miosis, mydriasis, hyphema, scleral injection, conjunctivitis, or pterygium. No otorrhea or rhinorrhea. No pharyngeal erythema, edema, or discharge. Neck: Supple, no stridor, bruit, goiter, or hepato-jugular reflux. Jugular venous pressure is estimated to be 3 cm above the sternal angle of Juan Diego, which in turn, is 5 cm above the level of the right atrium; with jugular venous pressure estimated to be 8 cm, then, there is no jugular venous distention on 06/11/2025. Lymphatics: No cervical (anterior/posterior), supraclavicular, infraclavicular, axillary, epitrochlear, or inguinal adenopathy. Chest: Symmetric rise and fall with respirations. Non-tender to palpation. Lungs: Clear to auscultation and percussion. Heart: Regular rate and rhythm. S1 and S2 noted. No S3 or S4 summation gallop. No tripartite friction rub. Grade II/ early systolic murmur @ LLSB without radiation to the carotids, axilla, or back, and which remains invariant in regards to the respiratory cycle. Abdomen: Soft, non-tender, non-distended. No rebound, guarding, Lee's sign, or organomegaly. Bowel sounds auscultated in all 4 quadrants. Extremities: No clubbing, cyanosis. 3+ pitting pedal edema with extension to the bilateral upper shins, but sparing the knees, hips, thighs, and abdomen. Skin: No decubitus ulcer or enanthem or exanthem. Neuro: Awake and oriented in regards to person, place, time, and situation. DTR+. 5/5 motor strength in all 4 extremities, both proximally and distally. No myoclonus or tics or tremors. Genito-urinary: No urethral discharge. No gan catheter. Results & Data Results & Data Vital Signs (Past 12 Hours) Vital Signs Temp Pulse Pulse Resp BP BP Pulse Ox 06/11/25 20:14 36.5 C 78 18 170/92 H 97 06/11/25 19:45 82 18 153/115 H 97 06/11/25 18:00 90 22 100 06/11/25 16:42 79 18 06/11/25 16:05 75 20 142/97 H 94 06/11/25 15:30 70 22 142/98 H 94 06/11/25 14:30 95 06/11/25 14:18 74 13 164/88 H 97 06/11/25 14:15 83 06/11/25 13:51 36.5 C 72 18 173/95 H 95 06/11/25 13:48 O2 Del Method 06/11/25 20:14 Room Air 06/11/25 19:45 Room Air 06/11/25 18:00 06/11/25 16:42 06/11/25 16:05 06/11/25 15:30 06/11/25 14:30 Room Air 06/11/25 14:18 06/11/25 14:15 06/11/25 13:51 Room Air 06/11/25 13:48 Room Air Laboratory Results As above in the HPI. Diagnostic Findings As above in the HPI. Medications Administered As above in the HPI. Code Status & VTE Plan VTE Prophylaxis Plan VTE Prophylaxis will be ordered: Yes PG Care Time/CCT Total # of Minutes Spent Total Time Spent with Patient: Total time spent is greater than 50% in coordination of care (as documented) at patient's floor/unit and/or counseling patient: Coding Level of Care Code 95532 INT INP/OBS CARE 2/55MIN Diagnoses Leg edema R60.0
[2025-06-12] MEDS: DICLOFENAC SOD 1% GEL 100 GM TUBE EXT PRN (00:53)
[2025-06-12] MEDS: LEVOTHYROXINE SODIUM 50 MCG TABLET PO SCH (06:12)
[2025-06-12 07:08] VITALS: BP 174/79; PULSE 68; TEMP 98.1; O2SAT 96
--- NOTE | 2025-06-12 08:09 | Discharge Summary ---
Discharge Summary Date of Service June 12, 2025 Principal Dx & Hospital Course #1 = Principal Diagnosis Admission HPI Per Admitting Provider 75 years old male with PMH of FULL CODE @ home, morbid obesity with BMI 41.1 (height 180.3 cm; weight 133.8 kg), chronic ambulatory dysfunction utilizing walker @ home, former tobacco abuse with no subsequent diagnosis of COPD, not on home O2 or home steroids, hyperlipidemia on atorvastatin 10mg PO qam, hypothyroidism with TSH 6.440 uIU/mL (03/31/2025, 9:29am) on synthroid 50ug PO daily, non-insulin dependent DM2 with HbA1c 8.2% (03/31/2025, 9:29am) on lantus 40 units SQ bid and glimepiride 1mg PO bid, HTN on carvedilol 6.25mg PO bid, losartan 50mg PO qam, lasix 20mg PO daily prn leg edema, and chronic diastolic CHF with preserved LVEF 55% and grade I LV diastolic dysfunction with height 180.3 cm and weight 292 pounds = 132.7 kg (as reported on 01/06/2022, 7:05am TTE, CARDS Dr. Dwain Evans), who reports sleeping in a recliner every night since 2019, who reports: "I am ok. I really am. I only came to [facility] ER, because I saw my CARDS Dr. Dwain Evans ([place], [place]) this morning and he was very upset with me. I told him that I decided to stop taking my lasix because I was peeing all the time, in my pants, in my bed, and it was not good. Dr. Evans told me that I gained 30 pounds in 3 days and I said that was impossible. I told Dr. Evans that I normally weigh 295 pounds at home on a good day, and that is what I weighed today in Dr. Evans's office. He kept telling me that I weigh 265 pounds, and I said no, I weigh 295 pounds. Anyways, Dr. Evans was upset with me and said I have to go to [facility] ER to get the 30 pounds off me, so I did what Dr. Evans said to do, and here I am. I'll take the lasix here in the hospital, and go home tomorrow, but I'm hungry right now, can I have some food?" Patient denies antecedent/coincident weight gain, weight loss, paroxysmal nocturnal dyspnea, orthopnea, platypnea, fevers, chills, diaphoresis, cough, wheeze, sore throat, hemoptysis, chest pains, palpitations, pleurisy, nausea, vomiting, diarrhea, abdominal pain, pelvic pain, hematemesis, hematochezia, melena, hematuria, dysuria, frequency, urgency, headaches, dizziness, lightheadedness, visual changes, hearing changes, weakness, falls, syncope, trauma, travel history, sick contacts, or food/drug ingestions novel or new. All other review of systems are reported as negative by the patient on 06/11/2025. In [facility] ER bed #C05, patient was afebrile @ 36.5 degrees Celsius, HR 72, RR 18, O2 sat 95% on room air, and BP 173/95 (06/11/2025, 1:51pm). Exam was noted for clear and non-tender chest. 3+ pitting pedal edema with extension to the bilateral upper shins, but sparing the knees, hips, thighs, and abdomen. Labs in [facility] ER bed #C05 included: WBC 9.46, N70 L21 M6 E2, Hb 14.9, MCV 83.8, MCHC 32.7, platelet 176 (06/11/2025, 3:08pm). INR 1.0 (06/11/2025, 3:08pm). Na 136, K 3.8, BUN 18, creatinine 0.94, glucose 238, Ca 9.3, Mg 1.9, AST 22, ALT 24, ALK PHOS 77, TBili 0.6 (06/11/2025, 3:08pm). Troponin-I #1 7.3 pg/mL (06/11/2025, 3:08pm). BNP 19 pg/mL (06/11/2025, 3:08pm). Lipase 18 U/L (06/11/2025, 3:08m). Additional testing in [facility] ER bed #C05 included: Portable CXR (06/11/2025, 2:30pm): Cardiomegaly. No infiltrate, effusion, pulmonary vascular congestion, or pneumothorax (by my review). EKG (06/11/2025, 2:08pm): NSR @ 75, MT 174, QTC 433, LAFB, no acute ST depressions/elevations (by my review). Historical testing in [facility] includes: EKG (12/29/2024, 4:00pm): NSR @ 99, MT 168, QTC 420, LAFB, no acute ST depressions/elevations (by my review). Patient was subsequently placed in OBSERVATION on the hospitalist service @ [facility] on 06/11/2025 with the following diagnosis: 1. Chronic bilateral lower extremity/denis edema, NOT acute exacerbation chronic diastolic CHF. Due to non-compliance with lasix at home as patient concedes: "I decided to stop taking my lasix because I was peeing all the time, in my pants, in my bed, and it was not good." To address #1, patient received lasix 60mg IV x 1 dose (06/11/2025, 3:13pm) in [facility] ER bed #C05. Patient will receive lasix 120mg IV x 2 doses (06/11/2025, 9:13pm; 06/12/2025, 9:13am) in [facility] Med-Surg floor, followed by D/C home after breakfast on 06/12/2025, on lasix 40mg PO daily. Patient reports that he will comply with lasix 40mg PO daily. Discharge Exam Constitutional General: Comfortable, coherent, and cooperative. Not confused, obtunded, or lethargic. Patient speaks with regular yung, and in complete, fluent, and articulate 7-9 word sentences without pause, interruption, cough, or wheeze with O2 sat 96% on room air (06/12/2025, 7:07am). HEENT: Normocephalic, atraumatic. No nystagmus, gaze paresis, anisocoria, miosis, mydriasis, hyphema, scleral injection, conjunctivitis, or pterygium. No otorrhea or rhinorrhea. No pharyngeal erythema, edema, or discharge. Neck: Supple, no stridor, bruit, goiter, or hepato-jugular reflux. Jugular venous pressure is estimated to be 3 cm above the sternal angle of [place], which in turn, is 5 cm above the level of the right atrium; with jugular venous pressure estimated to be 8 cm, then, there is no jugular venous distention on 06/11/2025 or on 06/12/2025. Lymphatics: No cervical (anterior/posterior), supraclavicular, infraclavicular, axillary, epitrochlear, or inguinal adenopathy. Chest: Symmetric rise and fall with respirations. Non-tender to palpation. Lungs: Clear to auscultation and percussion. Heart: Regular rate and rhythm. S1 and S2 noted. No S3 or S4 summation gallop. No tripartite friction rub. Grade II/ early systolic murmur @ LLSB without radiation to the carotids, axilla, or back, and which remains invariant in regards to the respiratory cycle. Abdomen: Soft, non-tender, non-distended. No rebound, guarding, Lee's sign, or organomegaly. Bowel sounds auscultated in all 4 quadrants. Extremities: No clubbing, cyanosis. 2+ pitting pedal edema with extension to the bilateral upper shins, but sparing the knees, hips, thighs, and abdomen. Skin: No decubitus ulcer or enanthem or exanthem. Neuro: Awake and oriented in regards to person, place, time, and sit uation. DTR+. 5/5 motor strength in all 4 extremities, both proximally and distally. No myoclonus or tics or tremors. Genito-urinary: No urethral discharge. No gan catheter. Discharge Plan Discharge Items Patient Disposition: Home - Self-Care Reason For Visit: LEG EDEMA DUE TO DELIBERATE NON-COMPLIANCE WITH LA Discharge Diagnosis: 1. Chronic bilateral lower extremity/denis edema, NOT acute exacerbation chronic diastolic CHF. Due to non-compliance with lasix at home as patient concedes: "I decided to stop taking my lasix because I was peeing all the time, in my pants, in my bed, and it was not good." Condition on Discharge: Fair Activity: Resume your previous activity Lifting: Gradually increase as tolerated Bathing: No limitations Sexual Activity: When tolerated Exercise/Sports: As tolerated Driving/Machine Use: No limitations Weightbearing: Full weightbearing Non-emergency contact: Primary Care Provider Call non-emergency contact if: you have any medication questions Follow-up/Referrals: Gurdeep Alarcon, [Primary Care Provider] - Diet: Heart Healthy Addtl Attending Provider Instructions: See your PCP Dr. Gurdeep Alarcon within 5-7 days of hospital discharge for routine, follow up visit. Pending Studies at Discharge: No Stand-Alone Forms: My [facility], Smoking Cessation Medications and DC Order Prescriptions: New furosemide [Lasix] 40 mg tablet 40 mg PO DAILY Qty: 30 0RF Continued aspirin [Adult Aspirin Regimen] 81 mg tablet,delayed release (DR/EC) 81 mg PO QAM atorvastatin [Lipitor] 10 mg tablet 10 mg PO QAM Qty: 90 3RF (DME) stand up walker See Rx Instructions .Route .MEDSUPPLY Qty: 1 0RF Rx Instructions: As directed (DME) walker Misc See Rx Instructions .Route Qty: 1 0RF Rx Instructions: Rolator walker with Breaks lenght of need 99month (DME) pen needle, diabetic [CareFine Pen Needle] 31 gauge x 1/4" needle See Rx Instructions .Route Qty: 100 1RF Rx Instructions: use daily losartan 50 mg tablet 50 mg PO QAM (DME) OneTouch Ultra Test Strip See Rx Instructions .Route Qty: 100 5RF Rx Instructions: Test blood sugar two times a day; E11.65 celecoxib [Celebrex] 100 mg capsule 100 mg PO BID diclofenac sodium [Arthritis Pain (diclofenac)] 1 % gel 2 g topical QID PRN (Reason: JOINT/MUSCLE PAIN) lidocaine 5 % adhesive patch,medicated 2 patch topical DAILY PRN (Reason: Pain) Rx Instructions: leave on most painful area for up to 12 hrs tramadol 50 mg tablet 50 mg PO Q6H PRN (Reason: pain, moderate) Qty: 60 0RF multivitamin Tablet 1 tab PO DAILY insulin glargine [Lantus Solostar U-100 Insulin] 100 unit/mL (3 mL) insulin pen 40 unit subcut BID MDD 100 Qty: 90 2RF Rx Instructions: Inject 40 units twice daily potassium gluconate 600 mg (99 mg) Tablet 600 mg PO DAILY carvedilol 6.25 mg tablet 6.25 mg PO BIDM Rx Instructions: Take 1 tablet by mouth twice daily with food glimepiride 1 mg tablet 1 mg PO BIDM Rx Instructions: administer with breakfast and supper levothyroxine 50 mcg tablet 50 mcg PO DAILYBB Rx Instructions: Take 1 tablet by mouth once daily Discontinued furosemide 20 mg tablet 20 mg PO QAM PRN (Reason: FLUID RETENTION/EDEMA) Rx Instructions: PER PT "ONLY TAKE NEEDED". Discharge Orders: Discharge Order (Routine); Ordered 06/12/25 Ordered By: Anthony Fairbanks Discharge Order- CHF (Routine); Ordered 06/12/25 Ordered By: Anthony Fairbanks Admission Data Admit Date/Time: 06/11/25 16:19 Attending Provider: Anthony Fairbanks Admit Provider: Anthony Fairbanks Primary Care Provider: Gurdeep Alarcon Other Providers: Anthony Fairbanks Hospital Stay Data Consultations 06/11/25 16:03 ED Decision to Admit Stat Pending Results Patient Have Any Pending Studies at Discharge: No Discharge Instructions Given to Patient (Per Discharging Provider) See your PCP Dr. Gurdeep Alarcon within 5-7 days of hospital discharge for routine, follow up visit. Total Time Total Time Spent Total Time Spent (In Minutes): 35 minutes. Of this time period, 19 minutes were spent in coordinating patient's discharge. Coding Level of Care Code 93055 INP/OBS DISCH >30 MIN
[2025-06-12] MEDS: LOSARTAN POTASSIUM 50 MG TAB PO SCH (08:52)
[2025-06-12] MEDS: ATORVASTATIN 10 MG TAB PO SCH (08:52)
[2025-06-12] MEDS: ASPIRIN 81 MG ECTAB PO SCH (08:52)
[2025-06-12] MEDS: FUROSEMIDE 40 MG/4 ML VIAL IV ONE (09:16)
--- NOTE | 2025-06-12 11:47 | Electrocardiogram Report ---
Test Reason : Blood Pressure : */* mmHG Vent. Rate : 75 BPM Atrial Rate : 75 BPM P-R Int : 174 ms QRS Dur : 106 ms QT Int : 388 ms P-R-T Axes : 75 -60 64 degrees QTcB Int : 433 ms Normal sinus rhythm Left anterior fascicular block Moderate voltage criteria for LVH, may be normal variant ( R in aVL ) Abnormal ECG When compared with ECG of 29-Dec-2024 16:00, Incomplete right bundle branch block is no longer Present Confirmed by Beny Álvarez ([id number]) on 06/12/2025 11:45:53 AM Referred By: Dwain Evans Confirmed By: Beny Álvarez
== END 2025-06-12 13:22 | disposition home or self-care (01) ==
LOC: SUATTDRO → ED 13:48 → 3E 13:48